=== PATIENT | male | born 1950 | race Caucasian/White ===

== ENCOUNTER → 2016-07-03 | Outpatient (CLI) | payer MEDICARE, OTHER ==
[~2016-07-03] MED LIST: /WARF5TA; ASMANEX; LOVENOX; PRESTIQ; SYNT112T; SYNT125T; THERGRAN
[2016-07-04 14:13] LABS: PSA % FREE 15.4 % (.); PSA FREE 0.71 ng/mL; PSA TOTAL 4.6 ng/mL (0.0-4.0)
== END | disposition home or self-care (01) ==
LOC: M LAB 07:22
PROVIDERS: ATTEND Nurse Practitioner Family
DX: R97.20 Elevated prostate specific antigen [PSA] (principal)

== ENCOUNTER → 2016-07-14 | Outpatient (CLI) | payer MEDICARE, OTHER ==
[~2016-07-14] MED LIST changes: +ASMA220A IN; +CALC-136 PO; +CALCCHW19 PO; +COEN100C PO; +FISH100049 PO; +GARL500C8 PO; +INOS500T PO; +LEVO125T3 PO; +LOVE0.01 SC; +MULT1TAB18 PO; +PRIS50TA PO; +VITA10006 PO; +VITA100066 PO; +VITAD1000T PO; +VITATAB11 PO; +WARF-23 PO
--- NOTE | 2016-07-14 10:42 | REP ---
Prostate sonography: History: Elevated PSA level. Sonographic findings: Trans rectal prostate sonography demonstrates unremarkable seminal vesicles. Prostate gland is heterogeneously enlarged with calcifications and cystic changes noted. Glandular dimensions are measured at 4.0 x 3.0 x 5.1 cm with a calculated glandular volume of 32.1 ml. There to nodules on the left measuring 0.7 and 0.9 cm in greatest diameter. Transrectal sonographic guidance provided to Dr. Rojo who performed trans rectal ultrasound guided needle biopsy procedure . Signed by Jah Clifford MD 07/14/2016 10:34 A
== END ==
LOC: M SMT PRO 08:26
PROVIDERS: ATTEND Urology
DX: C61 Malignant neoplasm of prostate (principal); R97.20 Elevated prostate specific antigen [PSA]
CPT/HCPCS: 55700; 76872; 76942; G0416

== ENCOUNTER → 2016-07-27 | Outpatient (REF) | payer MEDICARE, OTHER ==
[~2016-07-27] MED LIST changes: -ASMA220A IN; -CALC-136 PO; -CALCCHW19 PO; -COEN100C PO; -FISH100049 PO; -GARL500C8 PO; -INOS500T PO; -LEVO125T3 PO; -LOVE0.01 SC; -MULT1TAB18 PO; -PRIS50TA PO; -VITA10006 PO; -VITA100066 PO; -VITAD1000T PO; -VITATAB11 PO; -WARF-23 PO
== END | disposition home or self-care (01) ==
LOC: M SMT 16:53
PROVIDERS: ATTEND Urology
DX: R30.0 Dysuria (principal)

== ENCOUNTER → 2016-07-29 | Outpatient (CLI) | payer MEDICARE, OTHER ==
[~2016-07-29] MED LIST changes: +ASMA220A IN; +CALC-136 PO; +CALCCHW19 PO; +CIPRO; +COEN100C PO; +COLA100C PO; +DITR5TAB PO; +FISH100049 PO; +GARL500C8 PO; +INOS500T PO; +LEVO125T3 PO; +LOVE0.01 SC; +MULT1TAB18 PO; +OXYC1TAB23 PO; +PRIS50TA PO; +TYLE325T5 PO; +VITA10006 PO; +VITA100066 PO; +VITAD1000T PO; +VITATAB11 PO; +WARF-23 PO
[2016-07-29 15:54] LABS: RED CELL DISTRIBUTION WIDTH 13.1 % (11.5-14.5); WHITE BLOOD COUNT 5.6 K/mm3 (4.0-10.0)
[2016-07-29 15:56] LABS: INR 2.6
[2016-07-29 16:03] LABS: MEAN CORPUSCULAR HEMOGLOBIN 33.3 pg (27.0-33.0); MEAN CORPUSCULAR HGB CONC 34.9 g/dl (32.0-36.5); MEAN CORPUSCULAR VOLUME 95.3 fl (80.0-96.0)
[2016-07-29 16:16] LABS: ANION GAP 5 MEQ/L (8-16); BLOOD UREA NITROGEN 11 MG/DL (7-18); CALCIUM LEVEL 8.8 MG/DL (8.8-10.2); CARBON DIOXIDE LEVEL 33 MEQ/L (21-32); CHLORIDE LEVEL 105 MEQ/L (98-107); GLOMERULAR FILTRATION RATE > 60.0 (>49); GLUCOSE, FASTING 80 MG/DL (80-110); POTASSIUM SERUM 4.3 MEQ/L (3.5-5.1); SODIUM LEVEL 143 MEQ/L (136-145)
--- NOTE | 2016-07-29 16:34 | REP ---
Chest x-ray: Two views. History: Prostate malignancy. Comparison study April 16, 2015. Findings: The lungs are well inflated and remain clear. The pleural angles are sharp. Heart size is normal. Pulmonary vasculature is not increased. There are some mild degenerative changes in the thoracic spine. There are surgical clips on either side of the trachea in the soft tissues of the neck consistent with previous thyroidectomy. There is an old healed clavicle fracture on the right. No other significant bony abnormality. Impression: No active disease. Signed by Jah Clifford MD 07/29/2016 04:37 P
--- NOTE | 2016-07-29 16:49 | ECGEPIP ---
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
== END ==
LOC: M LAB 15:15
PROVIDERS: ATTEND Urology
DX: Z01.818 Encounter for other preprocedural examination (principal); C61 Malignant neoplasm of prostate; Z79.01 Long term (current) use of anticoagulants
CPT/HCPCS: 36415; 71020; 80048; 85027; 85610; 85730; 93005; G0463

== ENCOUNTER 2016-08-07 05:30 | Inpatient (IN) | payer MEDICARE, OTHER ==
--- NOTE | 2016-07-31 14:00 | CR ---
DATE OF CONSULTATION: 07/31/2016 REQUESTING PHYSICIAN: Dr. Rojo. This is a 65-year-old white male who is scheduled for robotic prostatectomy and sampling of lymph nodes. Recently diagnosed with prostate cancer. Perioperative concerns are history of recurrent deep venous thrombosis (DVT). He does have underlying medullary carcinoma of the thyroid which is followed at [facility]. 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 He does have mild obstructive sleep apnea (DALLAS) an DALLAS precautions. Regarding his chronic anticoagulation, his Coumadin has been discontinued yesterday. On Wednesday, he will begin Lovenox 120 mg daily through Wednesday. He will not take any on Wednesday. He should start his Lovenox up again postoperatively when it is felt to be safe from a urologic standpoint and he should continue at that dose until he is fully anticoagulated with his warfarin. His warfarin should also be restarted postoperatively. He has no history of known coronary disease. He has no cardiopulmonary symptoms. He has no history of stable asthma. He does have DALLAS mild. He does not use his CPAP. PAST MEDICAL HISTORY: MEN (it is with one without pheochromocytoma or hyperparathyroidism). Medullary carcinoma of the thyroid. He has had total thyroidectomy. He has surgical hypothyroidism, maintains TSH in a mildly suppressed zone. He has celiac disease. Recurrent DVTs. Pulmonary embolus. Anxiety. Asthma which is stable. He has had orthopedic surgery on a toe, rhinoseptoplasty, laser disc surgery, lumbar area by Dr. Lucas. MEDICATIONS: - amitriptyline 25 mg at bedtime - Asmanex inhaler for asthma maintenance which is well-controlled. - He takes fish oil, garlic oil and vitamin E which are on hold. - Synthroid 125 mcg a day. - He will be on Lovenox as above. His Coumadin has been discontinued. - Pristiq 50 mg a day. - tramadol as needed - Veramyst nasal spray Family history is negative for medullary carcinoma, negative for cancer. ALLERGIES: CELEBREX, DOXYCYCLINE, KEFLEX and PENICILLIN. I am not sure of the reaction. Cardiopulmonary review of systems is currently negative. He does have a history of asthma but that is well controlled on his inhaler and that should be continued perioperatively. PHYSICAL EXAMINATION: Blood pressure is 136/74, pulse is 60 and regular. General appearance: Healthy-appearing 65-year-old. HEENT: Is unremarkable. He has a fair oral airway. No carotid bruits. Thyroid has been surgically removed. Heart: Was regular. No murmurs. Chest is clear. No wheezes. Abdomen: Unremarkable. Extremities: No edema. Neuro: Intact. DATABASE: He had CBC, BMP, they were unremarkable. EKG is stable compared to prior was sinus robinson and nonspecific ST changes. INR was 2.6. IMPRESSION/PLAN: 1. Recurrent deep venous thrombosis (DVT), anticoagulation issues as above.AND ADDENDUM AT BOTTOM 2. Medullary carcinoma of the thyroid. 3. MEN syndrome. He has the syndrome not associated with pheochromocytoma or hyperparathyroidism. 4. Surgical hypothyroidism. Resume thyroid postoperatively. Continue Synthroid perioperatively. 5. Asthma. Resume Asmanex inhaler. 6. Generalized anxiety. Continue Pristiq, 7. Celiac disease, gluten-free diet. 8. Obstructive sleep apnea (DALLAS) mild, DALLAS precautions. He is optimized. The biggest caveats of concern is anticoagulation which is discussed above and obstructive sleep apnea issues as above and asthma issues as above, which is stable. 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
[~2016-08-07] VITALS: Ht 185.4 cm; Wt 92.0 kg
[~2016-08-07 05:30] MED LIST changes: -CIPRO; -COLA100C PO; -DITR5TAB PO; -OXYC1TAB23 PO; -TYLE325T5 PO
[2016-08-07] MEDS ORDERED: HEPARIN SOD (PORCINE) 5000 UNITS/ML VIAL SQ ONE (06:45)
[2016-08-07] MEDS ORDERED: GENTAMICIN 100 MG in APPROPRIATE DILUENT 1 EA IV ONE (06:45)
[2016-08-07] MEDS ORDERED: VANCOMYCIN HCL 1,000 MG, VIAL MATE ADAPTER 1 EACH in D5W 250 ML IV ONE (06:45)
[2016-08-07] MEDS ORDERED: BUPIVACAINE HCL 0.25% 30 ML VIAL As Ordered ONE (06:55)
[2016-08-07 06:56] LABS: INR 1.02
[2016-08-07] MEDS ORDERED: METHYLENE BLUE 1% 10 ML VIAL (Q9968) As Ordered ONE (06:56)
[2016-08-07] MEDS ORDERED: LIDOCAINE 1% SDV INJ 30 ML VIAL As Ordered ONE (06:56)
[2016-08-07] MEDS ORDERED: ONDANSETRON 4MG/2ML VIAL (J2405) IV PRN ×2 (07:45→13:15)
[2016-08-07] MEDS ORDERED: ACETAMINOPHEN TAB 650MG DOSE (2X325MG) PO PRN (07:45)
[2016-08-07] MEDS ORDERED: ePHEDrine SULFATE 25 MG/5 ML(5MG/ML) SYRINGE As Ordered ONE (08:19)
[2016-08-07] MEDS ORDERED: DESFLURANE 240 ML INHALANT As Ordered ONE (08:19)
[2016-08-07] MEDS ORDERED: fentaNYL 250 MCG/5 ML INJECTION (J3010) As Ordered ONE (08:19)
[2016-08-07] MEDS ORDERED: GLYCOPYRROLATE INJ 0.2 MG/ML 2 ML VIAL As Ordered ONE ×2 (08:19→10:32)
[2016-08-07] MEDS ORDERED: ROCURONIUM BROMIDE 50 MG/5 ML VIAL As Ordered ONE (08:19)
[2016-08-07] MEDS ORDERED: MIDAZOLAM INJ 2 MG/2 ML VIAL (J2250) As Ordered ONE (08:19)
[2016-08-07] MEDS ORDERED: LIDOCAINE 2% INJ 100 MG/5 ML SDV (FOR ANES.) As Ordered ONE (08:19)
[2016-08-07] MEDS ORDERED: PROPOFOL 200 MG/20 ML VIAL As Ordered ONE (08:19)
[2016-08-07] MEDS ORDERED: dexameTHASONE 4 MG/ML 1ML VIAL (J1100) As Ordered ONE (08:46)
[2016-08-07] MEDS ORDERED: LIDOCAINE 1% SDV INJ 30 ML VIAL XX ONE (09:07)
[2016-08-07] MEDS ORDERED: BUPIVACAINE HCL 0.25% 30 ML VIAL XX ONE (09:07)
[2016-08-07] MEDS ORDERED: HYDROmorphone HCL 2 MG/ML 1ML VIAL (J1170) As Ordered ONE (09:19)
[2016-08-07] MEDS ORDERED: ONDANSETRON 4MG/2ML VIAL (J2405) As Ordered ONE (10:32)
[2016-08-07] MEDS ORDERED: NEOSTIGMINE 1MG/ML 5 ML SYRINGE (J2710) As Ordered ONE (10:32)
[2016-08-07] MEDS: fentaNYL 100 MCG/2 ML INJECTION (J3010) IV PRN ×4 (13:10→13:53)
[2016-08-07] MEDS ORDERED: fentaNYL 100 MCG/2 ML INJECTION (J3010) As Ordered ONE (13:10)
[2016-08-07] MEDS ORDERED: LR 1,000 ML IV SCH (13:15)
[2016-08-07] MEDS ORDERED: PERCOCET 5MG/325MG TAB PO PRN (13:15)
[2016-08-07] MEDS ORDERED: HYDROmorphone HCL 1 MG/ML SYRINGE (J1170) IV PRN (13:15)
[2016-08-07 13:16] LABS: MEAN CORPUSCULAR HEMOGLOBIN 34.2 pg (27.0-33.0); MEAN CORPUSCULAR HGB CONC 35.5 g/dl (32.0-36.5); MEAN CORPUSCULAR VOLUME 96.3 fl (80.0-96.0); RED CELL DISTRIBUTION WIDTH 13.2 % (11.5-14.5); WHITE BLOOD COUNT 9.7 K/mm3 (4.0-10.0)
--- NOTE | 2016-08-07 13:25 | ROOPDOC ---
[facility] Report Of Operation Report of Operation DATE OF PROCEDURE: 08/07/2016 PREPROCEDURE DIAGNOSIS: Prostate cancer. POSTPROCEDURE DIAGNOSIS: Prostate cancer. PROCEDURE: Robotic-assisted laparoscopic radical prostatectomy with bilateral pelvic lymph node dissection. SURGEON: Joshua Kaufman MD ELECTRIC FRYING PAN REPAIRER: Mary Porras NP ANESTHESIA: General. OPERATIVE INDICATIONS: This is a 65-year-old male who was diagnosed with clinical stage T1c Jabari 3+4 prostate cancer. After a discussion of the different options for treatment, he elected to undergo the above listed procedure. DESCRIPTION OF PROCEDURE: The patient was brought to the operating room where general anesthesia was induced. Prophylactic antibiotics were infused. He was then placed in the dorsal lithotomy position, prepped and draped in the usual sterile fashion. Next, a Sage catheter was inserted into the bladder, and the balloon was filled with 10 mL of sterile water. We then made a midline incision above the umbilicus for 12 mm port. A Veress needle was utilized to achieve pneumoperitoneum. Next, a 12 mm port was inserted through the incision and subsequently the camera was inserted. There were no injuries from the Veress needle or initial trocar placement. The remaining ports were placed in the usual fashion under direct vision in a W configuration. There were three 8 mm robotic ports, as well as another 12 mm high school assistant principal port. Once all the ports were placed, the robot was docked. After the robot was docked, we then proceeded to release any adhesions to the sigmoid colon and the abdominal wall. Once that was done, the bladder was dropped and the fat overlying the prostate was cleared using electrocautery. The superficial dorsal vein was controlled with electrocautery. The endopelvic fascia was opened on both sides and the dorsal venous complex was cleared. Next, a #0 Vicryl [id number] stitch was placed around the dorsal venous complex. Once that was done, the bladder was opened. We then began dissecting the bladder neck away from the prostate. I continued to dissect the bladder away from the prostate and then the prostate was lifted up. Both vasa differentia were identified in the midline. They were both carefully dissected and then ligated with Weck clips and then transected. Both seminal vessels were then also dissected until the entire seminal vesicle on each side was lifted up. At this point, bilateral prostatic pedicles were carefully ligated using a Harmonic scalpel. Of note, I did not perform a nerve sparing procedure for this patient as he indicated preop that preserving erections was not a priority for him. Bilateral pedicles were carried towards the apex. After taking care of the pedicles and mobilizing the rectum off the prostate below, the prostate was only connected by the urethra. At this point, the dorsal vein was transected with electrocautery. The urethra was then opened and the catheter was withdrawn and the posterior urethra was transected, thus freeing the prostate. At this point, we checked for hemostasis and it did appear very good. Next, we performed bilateral pelvic lymph node dissection. This was done in a standard fashion. The limits of dissection were the iliac vein proximally, the obturator nerve distally, and the pelvic sidewall laterally, and the bladder medially. All lymphatic tissues within these limits was removed. I performed the same procedure on both the right and left sides. Hemostasis was then obtained with a combination of bipolar electrocautery and Weck clips. The lymphatic packets were then placed in separate Endo Catch bags for future retrieval. Once hemostasis was confirmed, I then moved on to the vesicourethral anastomosis. This was performed with a Quill stitch in a running fashion. Once this was done, the final #20-Japanese Sage catheter was placed. Once the final Sage was placed, the balloon was filled with 15 mL of sterile water. Upon completion of the vesicourethral anastomosis, it was tested by filling the bladder with 120 mL of sterile water. The vesicourethral anastomosis appeared to be watertight. At this point, the prostate and seminal vesicles were placed in an Endo Catch bag for future retrieval. The robot was then undocked. A Kaylyn fascial closure device was utilized to place a #0 Vicryl suture through the fascia of the 12 mm [employer] school assistant principal port. At this point, a Lorenzo- Fuller drain was brought in through the left robotic port skin site and the drain was positioned anterior to the bladder. The drain was secured to the skin with #3-0 Ethilon suture. Next, all the remaining ports were removed and there did not appear to be any bleeding from any of the port sites. The prostate, as well as the lymph node packets were then extracted from the 12 mm camera port site after the skin and fascia were extended. The fascia in this area was then closed with a running #0 Vicryl stitch. The previously placed #0 Vicryl free ties through the [employer] assistant principal port were then tied down and all incisions were irrigated. Lastly, all of the incisions were closed with running subcuticular #4-0 Monocryl sutures. Local anesthesia was applied. Dermabond was then applied to the incisions. This marked the conclusion of the procedure. The patient was then taken out of the dorsal lithotomy position, awakened from anesthesia and transported to the recovery room in stable condition. ESTIMATED BLOOD LOSS: 120 mL. COMPLICATIONS: None. SPECIMENS: Prostate, right pelvic lymph nodes, left pelvic lymph nodes. PLAN: The patient will be admitted to the hospital postoperatively, and he will likely be discharged home within the next 1-2 days. His catheter will be removed in the next 7-10 days. JOSHUA KAUFMAN MD Aug 07, 2016 13:25
[2016-08-07 13:34] LABS: ANION GAP 7 MEQ/L (8-16); BLOOD UREA NITROGEN 12 MG/DL (7-18); CALCIUM LEVEL 7.7 MG/DL (8.8-10.2); CARBON DIOXIDE LEVEL 27 MEQ/L (21-32); CHLORIDE LEVEL 107 MEQ/L (98-107); CREATININE FOR GFR 1.03 MG/DL (0.70-1.30); GLOMERULAR FILTRATION RATE > 60.0 (>49); GLUCOSE, FASTING 169 MG/DL (80-110); POTASSIUM SERUM 3.9 MEQ/L (3.5-5.1); SODIUM LEVEL 141 MEQ/L (136-145)
[2016-08-07 15:15] VITALS: BP 148/76
[2016-08-07 15:45] VITALS: BP 144/75
[2016-08-07] MEDS: NS 1,000 ML IV SCH ×2 (15:55→15:56)
[2016-08-07] MEDS ORDERED: ENOXAPARIN 40 MG/0.4 ML SYRINGE (J1650) SC ONE (16:00)
[2016-08-07] MEDS: GENTAMICIN 80 MG in APPROPRIATE DILUENT 1 EA IV SCH (16:19)
[2016-08-07 16:45] VITALS: BP 127/74
[2016-08-07 17:45] VITALS: BP 120/69
[2016-08-07] MEDS: DESVENLAFAXINE ER 50 MG TABLET (PRISTIQ) PO SCH (18:13)
[2016-08-07 18:45] VITALS: BP 123/68
[2016-08-07] MEDS ORDERED: VANCOMYCIN HCL 1,000 MG, VIAL MATE ADAPTER 1 EACH in D5W/0.2% SODIUM CHLORIDE 250 ML IV ONE (20:00)
[2016-08-07] MEDS: PERCOCET 5MG/325MG TAB PO PRN (21:21)
[2016-08-07] MEDS: DOCUSATE SODIUM 100 MG CAP PO SCH (21:21)
[2016-08-07] MEDS: MORPHINE 2 MG/ML 1ML SYRINGE IV PRN (21:22)
[2016-08-07] MEDS ORDERED: oxyBUTYnin 5 MG TAB PO PRN (21:45)
[2016-08-07 22:00] VITALS: BP 136/74
[2016-08-08] MEDS: MORPHINE 2 MG/ML 1ML SYRINGE IV PRN (00:47)
[2016-08-08] MEDS: NS 1,000 ML IV SCH ×2 (00:48→07:32)
[2016-08-08] MEDS: GENTAMICIN 80 MG in APPROPRIATE DILUENT 1 EA IV SCH (00:48)
[2016-08-08] MEDS: PERCOCET 5MG/325MG TAB PO PRN ×3 (01:24→10:45)
[2016-08-08 02:00] VITALS: BP 127/69
[2016-08-08 06:00] VITALS: BP 123/77
[2016-08-08] MEDS ORDERED: LEVOTHYROXINE 0.125 MG TAB (125 MCG) PO SCH (06:00)
[2016-08-08 06:44] LABS: MEAN CORPUSCULAR HEMOGLOBIN 34.7 pg (27.0-33.0); MEAN CORPUSCULAR HGB CONC 35.6 g/dl (32.0-36.5); MEAN CORPUSCULAR VOLUME 97.4 fl (80.0-96.0); RED CELL DISTRIBUTION WIDTH 13.6 % (11.5-14.5); WHITE BLOOD COUNT 8.1 K/mm3 (4.0-10.0)
[2016-08-08 07:02] LABS: ANION GAP 8 MEQ/L (8-16); BLOOD UREA NITROGEN 10 MG/DL (7-18); CARBON DIOXIDE LEVEL 25 MEQ/L (21-32); CHLORIDE LEVEL 109 MEQ/L (98-107); CREATININE FOR GFR 1.03 MG/DL (0.70-1.30); GLOMERULAR FILTRATION RATE > 60.0 (>49); GLUCOSE, FASTING 108 MG/DL (80-110); POTASSIUM SERUM 4.3 MEQ/L (3.5-5.1); SODIUM LEVEL 142 MEQ/L (136-145)
[2016-08-08] MEDS ORDERED: ENOXAPARIN 40 MG/0.4 ML SYRINGE (J1650) SC SCH (09:00)
[2016-08-08] MEDS: DOCUSATE SODIUM 100 MG CAP PO SCH (09:10)
[2016-08-08] MEDS: DESVENLAFAXINE ER 50 MG TABLET (PRISTIQ) PO SCH (09:10)
[2016-08-08] MEDS ORDERED: PERCOCET 5MG/325MG TAB PO PRN (09:45)
--- NOTE | 2016-08-08 09:54 | IPNPDOC ---
Assessment/Plan Date Seen The patient was seen on 08/08/16. Patient Summary This is a 65 y/o M POD 1 s/p RALP w/ BPLND. Doing well. Labs w/i normal limits. UOP is excellent. Drain output is minimal. Plan/VTE VTE Prophylaxis Ordered?: Yes VTE Exclusion Mechanical Proph: N/A:VTE Prophy Ordered VTE Exclusion Pharmacological: N/A:VTE Prophy Ordered Plan/Urinary Catheter Reason for insertion/continuin: Other-document below (catheter needs to stay in for 7-10 days to allow healing of his vesicourethral anastomosis) Plan - d/c IVF - transition to PO pain medications w/ morphine for breakthrough - oxybutynin prn bladder spasms - SCDs, lovenox for DVT prophylaxis - incentive spirometry - ambulate as tolerated - plan for discharge home today w/ catheter in place if patient has no issues ambulating - d/c ALONSO drain prior to discharge Subjective Review oF Systems Chief Complaint The patient is a 65-year-old male admitted with a reason for visit of Prostate Ca. Events since Last Encounter No acute events o/n. Good pain control this morning. Had mild nausea, which has resolved. Has not ambulated yet. No flatus yet. No f/c/ns. Objective Physical Examination General Exam: : Alert: Cooperative: No Acute Distress ENT EXAM: : Atraumatic ABDOMEN EXAM: : Other (nondistended; incisions clean/dry/intact; ALONSO w/ serosanguinous output): SoftNo: Tenderness Skin Exam: : Nl turgor and temperature Psych Exam: : Mental status NL: Mood NL Other physical findings catheter in place, draining clear urine Vital Signs/I&O Vital Signs Date Time Temp Pulse Resp B/P Pulse Ox O2 Delivery O2 Flow Rate FiO2 08/08/16 06:25 18 08/08/16 06:00 98.6 64 123/77 94 Nasal Cannula 2.0 I&O- Last 24 Hours up to 6 AM 08/08/16 06:00 Intake Total 1945 ml Output Total 2555 ml Balance -610 ml Laboratory Data Labs 24H Laboratory Tests 2 08/07/16 12:59: Anion Gap 7L, Blood Urea Nitrogen 12, Creatinine 1.03, Sodium Level 141, Potassium Level 3.9, Chloride Level 107, Carbon Dioxide Level 27, Calcium Level 7.7L, Glomerular Filtration Rate > 60.0 08/08/16 06:19: Anion Gap 8, Blood Urea Nitrogen 10, Creatinine 1.03, Sodium Level 142, Potassium Level 4.3, Chloride Level 109H, Carbon Dioxide Level 25, Calcium Level 8.0L, Glomerular Filtration Rate > 60.0 CBC/BMP Laboratory Tests 08/07/16 12:59 Calcium Level 7.7 L, Red Blood Count 4.23 L, Mean Corpuscular Volume 96.3 H, Mean Corpuscular Hemoglobin 34.2 H, Mean Corpuscular Hemoglobin Concent 35.5, Red Cell Distribution Width 13.2 08/08/16 06:19 Calcium Level 8.0 L, Red Blood Count 3.76 L, Mean Corpuscular Volume 97.4 H, Mean Corpuscular Hemoglobin 34.7 H, Mean Corpuscular Hemoglobin Concent 35.6, Red Cell Distribution Width 13.6 JOSHUA KAUFMAN MD Aug 08, 2016 09:54
[2016-08-08 10:00] VITALS: BP 124/76
[2016-08-08] MEDS ORDERED: MORPHINE 2 MG/ML 1ML SYRINGE IV PRN (10:00)
[2016-08-08] MEDS ORDERED: COLA100C PO (13:47)
[2016-08-08] MEDS ORDERED: OXYC1TAB23 PO (13:47)
[2016-08-08] MEDS ORDERED: DITR5TAB PO (13:47)
[2016-08-08] MEDS ORDERED: TYLE325T5 PO (13:47)
[2016-08-08] MEDS ORDERED: CIPRO (13:48)
--- NOTE | 2016-08-10 12:38 | DSES ---
DATE OF ADMISSION: 08/07/2016 DATE OF DISCHARGE: 08/08/2016 ADMITTING DIAGNOSIS: Prostate cancer. DISCHARGE DIAGNOSIS: Prostate cancer. ADMITTING PHYSICIAN: Josef Rojo MD DISCHARGING PHYSICIAN: Josef Rojo MD PROCEDURE PERFORMED: Robotic-assisted laparoscopic radical prostatectomy with bilateral pelvic lymph node dissection on 08/07/2016. HISTORY OF PRESENT ILLNESS: This is a 65-year-old male with prostate cancer who presented to the hospital for the above listed procedure on 08/07/2016. He was admitted to the hospital postoperatively. HOSPITALIZATION COURSE: The patient was admitted to the hospital after undergoing the above-listed procedure. His postoperative course was uncomplicated. By postoperative day #1, he was tolerating a regular diet and he ambulated well. His pain was well controlled with oral pain medications. His blood work was within normal limits. His catheter is also doing well with clear urine. He was, therefore, deemed ready for discharge on postoperative day #1. His Lorenzo-Fuller drain was removed prior to discharge. He was discharged home with his catheter in place with a plan to followup in the clinic in about 10 days for catheter removal and to discuss his pathology results.
== END 2016-08-08 15:14 | disposition home or self-care (01) | DRG 708 ==
LOC: M OR 05:30 → M MS5PR 15:11
PROVIDERS: ADMIT Urology; ATTEND Urology
PROC: 07BC4ZX Excision of Pelvis Lymphatic, Percutaneous Endoscopic Approach, Diagnostic (ICD-10-PCS; 2016-08-07)
PROC: 8E0W4CZ Robotic Assisted Procedure of Trunk Region, Percutaneous Endoscopic Approach (ICD-10-PCS; 2016-08-07)
PROC: 0VT04ZZ Resection of Prostate, Percutaneous Endoscopic Approach (ICD-10-PCS; principal; 2016-08-07 07:30)
DX: C61 Malignant neoplasm of prostate (principal); G47.33 Obstructive sleep apnea (adult) (pediatric); E89.0 Postprocedural hypothyroidism; E31.20 Multiple endocrine neoplasia [MEN] syndrome, unspecified; K90.0 Celiac disease; F41.1 Generalized anxiety disorder; J45.909 Unspecified asthma, uncomplicated; Z86.711 Personal history of pulmonary embolism; Z79.01 Long term (current) use of anticoagulants; Z85.850 Personal history of malignant neoplasm of thyroid; Z86.718 Personal history of other venous thrombosis and embolism; Z79.891 Long term (current) use of opiate analgesic; Z79.899 Other long term (current) drug therapy

== ENCOUNTER → 2016-09-09 | Outpatient (CLI) | payer MEDICARE, OTHER ==
[~2016-09-09] MED LIST changes: +CIPRO; +COLA100C PO; +DITR5TAB PO; +OXYC1TAB23 PO; +TYLE325T5 PO
== END ==
LOC: M LAB 07:22
PROVIDERS: ATTEND Urology
DX: C61 Malignant neoplasm of prostate (principal)

== ENCOUNTER → 2016-10-21 | Outpatient (CLI) | payer MEDICARE, OTHER ==
[~2016-10-21] MED LIST changes: -COLA100C PO; +COLA100C3 PO
[2016-10-21 09:17] LABS: THYROXINE (T4) 8.5 UG/DL (4.5-12.0)
== END ==
LOC: M LAB 08:02
PROVIDERS: ATTEND Internal Medicine Endocrinology, Diabetes & Metabolism
DX: C73 Malignant neoplasm of thyroid gland (principal)

== ENCOUNTER → 2016-12-14 | Outpatient (CLI) | payer MEDICARE, OTHER | LOC: M LAB 06:50 | PROVIDERS: ATTEND Urology | DX: C61 Malignant neoplasm of prostate (principal) ==

== ENCOUNTER → 2017-04-01 | Outpatient (CLI) | payer MEDICARE, OTHER ==
[~2017-04-01] MED LIST changes: -COLA100C3 PO; +COLA100C5 PO; -LEVO125T3 PO; +LEVO125T4 PO
== END ==
LOC: M LAB 06:54
PROVIDERS: ATTEND Urology
DX: C61 Malignant neoplasm of prostate (principal)

== ENCOUNTER → 2017-04-30 | Outpatient (CLI) | payer MEDICARE, OTHER ==
[2017-04-30 08:25] LABS: FREE T4 0.95 NG/DL (0.76-1.46)
== END ==
LOC: M LAB 07:15
PROVIDERS: ATTEND Internal Medicine Endocrinology, Diabetes & Metabolism
DX: E03.9 Hypothyroidism, unspecified (principal); E31.22 Multiple endocrine neoplasia [MEN] type IIA

== ENCOUNTER → 2017-07-20 | Outpatient (CLI) | payer MEDICARE, OTHER ==
[2017-07-20 08:23] LABS: FREE T4 1.17 NG/DL (0.76-1.46); THYROID STIMULATING HORMONE 0.274 uIU/ML (0.358-3.740)
== END ==
LOC: M LAB 07:08
DX: E03.9 Hypothyroidism, unspecified (principal)
CPT/HCPCS: 84443

== ENCOUNTER → 2017-07-22 | Outpatient (CLI) | payer MEDICARE, OTHER ==
[2017-07-22 09:08] LABS: PROSTATIC SPECIFIC AG MONITOR < 0.01 NG/ML (< 4.0)
== END ==
LOC: M LAB 07:25
DX: C61 Malignant neoplasm of prostate (principal)
CPT/HCPCS: 84153

== ENCOUNTER → 2017-09-06 | Outpatient (CLI) | payer MEDICARE, OTHER | LOC: M RAD 12:09 | DX: R05 Cough (principal) | CPT/HCPCS: 71046 ==

== ENCOUNTER → 2017-09-07 | Outpatient (REF) | payer MEDICARE, OTHER | LOC: M LAB REF 10:00 | DX: R05 Cough (principal) | CPT/HCPCS: 87205 ==

== ENCOUNTER → 2017-09-14 | Outpatient (CLI) | payer MEDICARE, OTHER ==
[2017-09-14 08:18] LABS: FREE T4 0.95 NG/DL (0.76-1.46); THYROID STIMULATING HORMONE 0.537 uIU/ML (0.358-3.740); THYROXINE (T4) 8.7 UG/DL (4.5-12.0)
== END ==
LOC: M LAB 07:06
DX: E89.0 Postprocedural hypothyroidism (principal)
CPT/HCPCS: 84443

== ENCOUNTER → 2017-09-23 | Outpatient (REF) | payer MEDICARE, OTHER ==
[2017-09-23 12:09] LABS: D-DIMER QUANT < 270.0 ng/ml (<500)
== END ==
LOC: M LAB REF 11:44
DX: R06.02 Shortness of breath (principal); Z86.718 Personal history of other venous thrombosis and embolism; R04.2 Hemoptysis
CPT/HCPCS: 85379

== ENCOUNTER → 2017-12-14 | Outpatient (REF) | payer MEDICARE, OTHER ==
[2017-12-17 15:02] LABS: CALCITONIN 89.2 pg/mL (0.0-8.4)
== END ==
LOC: M LAB REF 11:46
DX: E31.20 Multiple endocrine neoplasia [MEN] syndrome, unspecified (principal)
CPT/HCPCS: 82308

== ENCOUNTER 2017-12-30 07:12 | Emergency (ER) | payer MEDICARE, OTHER ==
[2017-12-30] MEDS: CLINDAMYCIN 150 MG CAP PO ×2 (08:21)
== END 2017-12-30 08:22 | disposition home or self-care (01) ==
LOC: M ED 07:12
DX: L03.116 Cellulitis of left lower limb (principal); E03.9 Hypothyroidism, unspecified; E78.9 Disorder of lipoprotein metabolism, unspecified; M51.9 Unspecified thoracic, thoracolumbar and lumbosacral intervertebral disc disorder; I10 Essential (primary) hypertension; K90.0 Celiac disease; Z85.46 Personal history of malignant neoplasm of prostate; Z79.01 Long term (current) use of anticoagulants
CPT/HCPCS: 84443

== ENCOUNTER 2017-12-31 07:09 | Emergency (ER) | payer MEDICARE, OTHER ==
[2017-12-31 08:05] LABS: BASO # 0.1 10^3/uL (0.0-0.2); BASO % 0.7 % (0.0-1.0); EOS # 0.1 10^3/uL (0.0-0.50); HEMATOCRIT 42.2 % (42.0-52.0); HEMOGLOBIN 15.1 g/dl (13.5-17.5); IMMATURE GRANULOCYTE % 0.4 % (0-3.0); LYMPH # 0.9 10^3/uL (1.5-4.5); LYMPH % 11.8 % (24.0-44.0); MEAN CORPUSCULAR HGB CONC 35.8 g/dl (32.0-36.5); MONO # 1.2 10^3/uL (0.0-0.8); MONO % 16.1 % (0.0-5.0); NEUTROPHILS # 5.1 10^3/uL (1.8-7.7); PLATELET COUNT, AUTOMATED 122 10^3/uL (150-450); RED BLOOD COUNT 4.44 10^6/uL (4.30-6.10); RED CELL DISTRIBUTION WIDTH 13.2 % (11.5-14.5); WHITE BLOOD COUNT 7.3 10^3/uL (4.0-10.0)
[2017-12-31] MEDS: CLINDAMYCIN 900 MG in APPROPRIATE DILUENT 1 EA IV (08:18)
[2017-12-31 08:27] LABS: ANION GAP 6 MEQ/L (8-16); BLOOD UREA NITROGEN 12 MG/DL (7-18); C REACTIVE PROTEIN QUANTITATIV 7.01 MG/DL (0.00-0.30); CARBON DIOXIDE LEVEL 28 MEQ/L (21-32); CHLORIDE LEVEL 108 MEQ/L (98-107); CREATININE FOR GFR 0.94 MG/DL (0.70-1.30); GLOMERULAR FILTRATION RATE > 60.0 (>49); GLUCOSE, FASTING 130 MG/DL (70-100); POTASSIUM SERUM 4.2 MEQ/L (3.5-5.1); SODIUM LEVEL 142 MEQ/L (136-145)
[2017-12-31 08:28] LABS: INR 1.79; PROTHROMBIN TIME 21.1 SECONDS (12.1-14.4)
[2017-12-31 08:29] LABS: PARTIAL THROMBOPLASTIN TIME 38.2 SECONDS (25.4-37.6)
== END 2017-12-31 09:32 | disposition home or self-care (01) ==
LOC: M ED 07:09
DX: L03.116 Cellulitis of left lower limb (principal); E07.9 Disorder of thyroid, unspecified; E78.9 Disorder of lipoprotein metabolism, unspecified; F32.9 Major depressive disorder, single episode, unspecified; J45.909 Unspecified asthma, uncomplicated; K90.0 Celiac disease; Z85.46 Personal history of malignant neoplasm of prostate; Z79.899 Other long term (current) drug therapy; Z79.2 Long term (current) use of antibiotics; Z79.01 Long term (current) use of anticoagulants; Z88.8 Allergy status to other drugs, medicaments and biological substances; Z88.0 Allergy status to penicillin; Z91.018 Allergy to other foods; Z91.013 Allergy to seafood; Z91.040 Latex allergy status
CPT/HCPCS: 80048

== ENCOUNTER 2018-01-01 08:59 | Emergency (ER) | payer MEDICARE, OTHER | END 2018-01-01 10:11 | disposition home or self-care (01) | LOC: M ED 08:59 | DX: L03.116 Cellulitis of left lower limb (principal); L02.416 Cutaneous abscess of left lower limb; J45.909 Unspecified asthma, uncomplicated; K90.0 Celiac disease; E03.9 Hypothyroidism, unspecified; M48.00 Spinal stenosis, site unspecified; M51.9 Unspecified thoracic, thoracolumbar and lumbosacral intervertebral disc disorder; F42.9 Obsessive-compulsive disorder, unspecified; F41.9 Anxiety disorder, unspecified; F33.9 Major depressive disorder, recurrent, unspecified; Z79.899 Other long term (current) drug therapy; Z79.890 Hormone replacement therapy; Z79.01 Long term (current) use of anticoagulants; Z79.51 Long term (current) use of inhaled steroids; Z88.0 Allergy status to penicillin; Z88.8 Allergy status to other drugs, medicaments and biological substances; Z91.013 Allergy to seafood; Z91.018 Allergy to other foods; Z91.040 Latex allergy status; Z91.048 Other nonmedicinal substance allergy status | CPT/HCPCS: 99283 ==

== ENCOUNTER → 2018-01-25 | Outpatient (REF) | payer MEDICARE, OTHER ==
[2018-01-25 14:06] LABS: FREE T3 2.6 PG/ML (2.2-4.0)
== END ==
LOC: M LAB REF 13:17
DX: E03.9 Hypothyroidism, unspecified (principal)
CPT/HCPCS: 84481

== ENCOUNTER → 2018-02-03 | Outpatient (CLI) | payer MEDICARE, OTHER ==
[2018-02-03 08:31] LABS: PROSTATIC SPECIFIC AG MONITOR < 0.01 NG/ML (< 4.0)
== END ==
LOC: M LAB 07:06
DX: C61 Malignant neoplasm of prostate (principal)
CPT/HCPCS: 84153

== ENCOUNTER 2018-02-21 07:47 | Emergency (ER) | payer MEDICARE, OTHER ==
[2018-02-21 08:54] LABS: BASO # 0.1 10^3/uL (0.0-0.2); BASO % 1.3 % (0.0-1.0); EOS # 0.2 10^3/uL (0.0-0.50); EOS % 4.9 % (0.0-3.0); HEMATOCRIT 44.5 % (42.0-52.0); HEMOGLOBIN 15.7 g/dl (13.5-17.5); IMMATURE GRANULOCYTE % 0.6 % (0-3.0); LYMPH # 1.3 10^3/uL (1.5-4.5); LYMPH % 26.4 % (24.0-44.0); MEAN CORPUSCULAR HEMOGLOBIN 33.5 pg (27.0-33.0); MEAN CORPUSCULAR HGB CONC 35.3 g/dl (32.0-36.5); MEAN CORPUSCULAR VOLUME 95.1 fl (80.0-96.0); MONO # 0.7 10^3/uL (0.0-0.8); MONO % 14.8 % (0.0-5.0); NEUTROPHILS # 2.5 10^3/uL (1.8-7.7); PLATELET COUNT, AUTOMATED 146 10^3/uL (150-450); RED BLOOD COUNT 4.68 10^6/uL (4.30-6.10); RED CELL DISTRIBUTION WIDTH 13.4 % (11.5-14.5); WHITE BLOOD COUNT 4.7 10^3/uL (4.0-10.0)
[2018-02-21 08:58] LABS: KETONE, URINE AUTO RFX TRACE mg/dL (NEGATIVE); LEUKOCYTE ESTERASE UR AUTO RFX NEGATIVE (NEGATIVE); MUCUS, URINE RFX SMALL (NEGATIVE); NITRITE, URINE AUTO RFX NEGATIVE (NEGATIVE); RBC, URINE AUTO RFX 1 /HPF (0-3); SPECIFIC GRAVITY UR AUTO RFX 1.026 (1.002-1.035); SQUAM EPITHELIAL CELL UR AURFX 0 /HPF (0-6); WBC, URINE AUTO RFX 0 /HPF (0-3)
[2018-02-21 09:20] LABS: ANION GAP 5 MEQ/L (8-16); BLOOD UREA NITROGEN 13 MG/DL (7-18); CALCIUM LEVEL 8.7 MG/DL (8.8-10.2); CARBON DIOXIDE LEVEL 29 MEQ/L (21-32); CHLORIDE LEVEL 109 MEQ/L (98-107); CREATININE FOR GFR 0.84 MG/DL (0.70-1.30); GLOMERULAR FILTRATION RATE > 60.0 (>49); GLUCOSE, FASTING 107 MG/DL (70-100); POTASSIUM SERUM 4.1 MEQ/L (3.5-5.1); SODIUM LEVEL 143 MEQ/L (136-145)
[2018-02-21] MEDS: METHOCARBAMOL 1,000 MG/10 ML VIAL (J2800) IV (10:15)
== END 2018-02-21 10:46 | disposition home or self-care (01) ==
LOC: M ED 07:47
DX: R10.9 Unspecified abdominal pain (principal); S29.012A Strain of muscle and tendon of back wall of thorax, initial encounter; X58.XXXA Exposure to other specified factors, initial encounter; Y92.89 Other specified places as the place of occurrence of the external cause; Z87.440 Personal history of urinary (tract) infections; E78.5 Hyperlipidemia, unspecified; E30.9 Disorder of puberty, unspecified; Z85.46 Personal history of malignant neoplasm of prostate; Z86.711 Personal history of pulmonary embolism; M48.00 Spinal stenosis, site unspecified; M51.36 Other intervertebral disc degeneration, lumbar region; Z87.19 Personal history of other diseases of the digestive system; Z91.018 Allergy to other foods; Z88.8 Allergy status to other drugs, medicaments and biological substances; Z91.013 Allergy to seafood; Z88.0 Allergy status to penicillin; Z79.899 Other long term (current) drug therapy; Z79.51 Long term (current) use of inhaled steroids; Z79.01 Long term (current) use of anticoagulants
CPT/HCPCS: J2800

== ENCOUNTER → 2018-04-28 | Outpatient (CLI) | payer MEDICARE, OTHER | LOC: M LAB 06:55 | DX: E03.9 Hypothyroidism, unspecified (principal) | CPT/HCPCS: 84443 ==

== ENCOUNTER 2018-05-04 04:34 | Emergency (ER) | payer MEDICARE, OTHER ==
[2018-05-04 05:32] LABS: BASO # 0.1 10^3/uL (0.0-0.2); BASO % 1.4 % (0.0-1.0); EOS # 0.3 10^3/uL (0.0-0.50); EOS % 5.1 % (0.0-3.0); HEMATOCRIT 46.3 % (42.0-52.0); HEMOGLOBIN 16.3 g/dl (13.5-17.5); IMMATURE GRANULOCYTE % 0.2 % (0-3.0); LYMPH # 1.2 10^3/uL (1.5-4.5); LYMPH % 24.4 % (24.0-44.0); MEAN CORPUSCULAR HEMOGLOBIN 33.5 pg (27.0-33.0); MEAN CORPUSCULAR HGB CONC 35.2 g/dl (32.0-36.5); MEAN CORPUSCULAR VOLUME 95.1 fl (80.0-96.0); MONO # 0.7 10^3/uL (0.0-0.8); MONO % 12.8 % (0.0-5.0); NEUTROPHILS # 2.9 10^3/uL (1.8-7.7); NEUTROPHILS % 56.1 % (36.0-66.0); PLATELET COUNT, AUTOMATED 145 10^3/uL (150-450); RED BLOOD COUNT 4.87 10^6/uL (4.30-6.10); WHITE BLOOD COUNT 5.1 10^3/uL (4.0-10.0)
[2018-05-04 05:52] LABS: ANION GAP 5 MEQ/L (8-16); BLOOD UREA NITROGEN 14 MG/DL (7-18); CALCIUM LEVEL 8.6 MG/DL (8.8-10.2); CARBON DIOXIDE LEVEL 29 MEQ/L (21-32); CHLORIDE LEVEL 108 MEQ/L (98-107); CREATININE FOR GFR 0.92 MG/DL (0.70-1.30); GLOMERULAR FILTRATION RATE > 60.0 (>49); GLUCOSE, FASTING 120 MG/DL (70-100); POTASSIUM SERUM 4.7 MEQ/L (3.5-5.1); SODIUM LEVEL 142 MEQ/L (136-145)
== END 2018-05-04 06:55 | disposition home or self-care (01) ==
LOC: M ED 04:34
DX: J32.9 Chronic sinusitis, unspecified (principal); T50.B95A Adverse effect of other viral vaccines, initial encounter; K90.0 Celiac disease; G47.33 Obstructive sleep apnea (adult) (pediatric); J45.909 Unspecified asthma, uncomplicated; Z85.46 Personal history of malignant neoplasm of prostate; Z85.850 Personal history of malignant neoplasm of thyroid; Z91.018 Allergy to other foods; Z88.8 Allergy status to other drugs, medicaments and biological substances; Z91.040 Latex allergy status; Z88.0 Allergy status to penicillin; Z88.1 Allergy status to other antibiotic agents
CPT/HCPCS: 70450

== ENCOUNTER → 2018-05-06 | Outpatient (CLI) | payer MEDICARE, OTHER | LOC: M LAB 06:51 | DX: E31.22 Multiple endocrine neoplasia [MEN] type IIA (principal) | CPT/HCPCS: 83835 ==

== ENCOUNTER → 2018-05-07 | Outpatient (REF) | payer MEDICARE, OTHER ==
[2018-05-11 00:39] LABS: METANEPHRINE TOTAL URINE 38 ug/L (Undefined); METANEPHRINE URINE 61 ug/24 hr (45-290); NORMETANEPHRINE TOTAL URINE 151 ug/L (Undefined); NORMETANEPHRINE URINE 242 ug/24 hr (82-500)
== END ==
LOC: M LAB REF 10:11
DX: E31.22 Multiple endocrine neoplasia [MEN] type IIA (principal)
CPT/HCPCS: 83835

== ENCOUNTER 2018-07-09 07:15 | Emergency (ER) | payer MEDICARE, OTHER ==
[~2018-07-09] VITALS: Ht 182.9 cm; Wt 88.6 kg
[~2018-07-09 07:15] MED LIST changes: +CIPR500T3; +CLEO300C2 PO; +COUM1TAB17 PO; +FLON27.5 NARES; +LEVO750T13; +ROBA500T PO; +SYNT125T PO; +TRAM50TA2 PO; +XANA0.25 PO; +zyflamend PO
[2018-07-09] MEDS ORDERED: COUM1TAB17 PO (07:43)
[2018-07-09] MEDS ORDERED: COUM7.5T PO (07:43)
[2018-07-09] MEDS ORDERED: [UNRECOGNIZED DRUG - OTHER] PO (07:43)
[2018-07-09] MEDS ORDERED: zyflamend (07:43)
[2018-07-09] MEDS ORDERED: FLON27.5 NARES (07:43)
[2018-07-09] MEDS ORDERED: [UNRECOGNIZED DRUG - OTHER] PO (07:43)
[2018-07-09] MEDS ORDERED: MULTCAP PO (07:43)
--- NOTE | 2018-07-09 08:03 | REPVR ---
EXAM: CT Head Without Contrast EXAM DATE/TIME: 07/09/2018 7:36 AM CLINICAL HISTORY: 67 years old, male; Injury or trauma; Fall; Initial encounter; Concussion / head injury; Consciousness not specified TECHNIQUE: Axial computed tomography images of the head/brain without contrast. All CT scans at this facility use at least one of these dose optimization techniques: automated exposure control; mA and/or kV adjustment per patient size (includes targeted exams where dose is matched to clinical indication); or iterative reconstruction. COMPARISON: CT Head without contrast 05/04/2018 5:23 AM FINDINGS: Brain: Normal. No hemorrhage. No significant white matter disease. No edema. Ventricles: Age related cerebral atrophy and ventricular dilatation seen. Bones/joints: Normal. No acute fracture. Sinuses: Normal as visualized. No acute sinusitis. Mastoid air cells: Normal as visualized. No mastoid effusion. Soft tissues: Normal. IMPRESSION: No CT evidence of intracranial hemorrhage, mass effect or midline shift. Electronically signed by: Clarke Brody On 07/09/2018 08:03:36 AM
--- NOTE | 2018-07-09 08:07 | REPVR ---
EXAM: CT Cervical Spine Without Contrast EXAM DATE/TIME: 07/09/2018 7:36 AM CLINICAL HISTORY: 67 years old, male; Injury or trauma; Fall; Initial encounter; Concussion /head injury TECHNIQUE: Axial computed tomography images of the cervical spine without intravenous contrast. All CT scans at this facility use at least one of these dose optimization techniques: automated exposure control; mA and/or kV adjustment per patient size (includes targeted exams where dose is matched to clinical indication); or iterative reconstruction. Coronal and sagittal reformatted images were created and reviewed. COMPARISON: OT PET/CT Skull/mid thigh 08/13/2011 4:45 PM FINDINGS: Vertebrae: There are mild multilevel facet arthrosis. Small anterior disc osteophyte complex formation seen at C5-C6. No appreciable foraminal stenosis seen. Discs/Spinal canal/Neural foramina: See Vertebrae Finding. Soft tissues: Unremarkable. Thyroid: The patient is status post thyroidectomy. Lungs: There is a 5-6 mm nodule in the left lung apex. IMPRESSION: 1. No CT evidence of traumatic cervical spine injury. 2. Status post thyroidectomy. 3. 5-6 mm left lung apex nodule. Correlate with patient's clinical history. If indicated further evaluation of the lungs is needed, CT scan of the chest may be obtained Electronically signed by: Clarke Brody On 07/09/2018 08:07:38 AM
[2018-07-09 08:20] LABS: INR 2.14; PARTIAL THROMBOPLASTIN TIME 37.8 SECONDS (25.4-37.6); PROTHROMBIN TIME 24.3 SECONDS (12.1-14.4)
[2018-07-09 08:30] LABS: BASO # 0.1 10^3/uL (0.0-0.2); BASO % 1.1 % (0.0-1.0); EOS # 0.1 10^3/uL (0.0-0.50); EOS % 1.3 % (0.0-3.0); HEMATOCRIT 46.7 % (42.0-52.0); HEMOGLOBIN 17.1 g/dl (13.5-17.5); LYMPH # 1.2 10^3/uL (1.5-4.5); LYMPH % 21.3 % (24.0-44.0); MEAN CORPUSCULAR HEMOGLOBIN 33.8 pg (27.0-33.0); MEAN CORPUSCULAR VOLUME 92.3 fl (80.0-96.0); MONO # 0.7 10^3/uL (0.0-0.8); MONO % 12.2 % (0.0-5.0); NEUTROPHILS # 3.6 10^3/uL (1.8-7.7); NEUTROPHILS % 63.7 % (36.0-66.0); PLATELET COUNT, AUTOMATED 149 10^3/uL (150-450); RED BLOOD COUNT 5.06 10^6/uL (4.30-6.10); WHITE BLOOD COUNT 5.6 10^3/uL (4.0-10.0)
[2018-07-09] MEDS ORDERED: NS 1,000 ML IV SCH (08:30)
[2018-07-09 08:33] LABS: MEAN CORPUSCULAR HGB CONC 36.6 g/dl (32.0-36.5)
[2018-07-09 08:34] LABS: BLOOD UREA NITROGEN 11 MG/DL (7-18); CALCIUM LEVEL 8.5 MG/DL (8.8-10.2); CARBON DIOXIDE LEVEL 26 MEQ/L (21-32); CHLORIDE LEVEL 108 MEQ/L (98-107); CPK CREATINE PHOSPHOKINASE 165 U/L (39-308); GLOMERULAR FILTRATION RATE > 60.0 (>49); GLUCOSE, FASTING 125 MG/DL (70-100); MB/CK RELATIVE INDEX 1.94 (< OR =4); POTASSIUM SERUM 3.5 MEQ/L (3.5-5.1); SODIUM LEVEL 141 MEQ/L (136-145); TROPONIN I < 0.02 NG/ML (< 0.10)
[2018-07-09 08:39] LABS: ALBUMIN 3.7 GM/DL (3.2-5.2); BILIRUBIN,DIRECT 0.2 MG/DL (0.0-0.2); BILIRUBIN,TOTAL 1.2 MG/DL (0.2-1.0); FREE T4 1.16 NG/DL (0.76-1.46); THYROID STIMULATING HORMONE 1.21 uIU/ML (0.358-3.740); TOTAL PROTEIN 7.3 GM/DL (6.4-8.2)
[2018-07-09] MEDS ORDERED: ISOVUE-370 76% 100ML VIAL (Q9967) As Ordered ONE (08:46)
--- NOTE | 2018-07-09 09:48 | REP ---
AP PORTABLE CHEST: 07/09/2018. Clinical history: Chest pain. Comparison: 02/21/2018. Findings: Lungs are well inflated and without infiltrate, effusion, atelectasis or mass. No pneumothorax. The heart is not enlarged. There is no vascular redistribution or pulmonary edema. Aorta is mildly tortuous but normal for age. Airway is intact. No widening of the mediastinum. There is an old healed and remodeled fracture of the right mid clavicle. No acute bony finding. No free air under the diaphragm. Impression :1. No acute cardiopulmonary change. Electronically Signed by Issa Lunsford MD 07/09/2018 01:20 P
[2018-07-09 10:18] VITALS: BP 140/77
--- NOTE | 2018-07-09 10:49 | REP ---
CT CHEST WITH CONTRAST: 07/09/2018. Comparison: 09/23/2017, CT angiography. Technique: The patient received a bolus of 100 mL Isovue 370 scanning through the chest with coronal and sagittal reconstructions. Findings: The lung moore are well inflated and without infiltrate, effusion, atelectasis or mass. Previous 7 mm left lower lobe lung nodule in the is resolved and the right middle lobe nodule on previous study is unchanged. Minor apical pleuroparenchymal scarring. There is no pleural thickening or pneumothorax. No pneumomediastinum. Heart is not enlarged. Aorta is without aneurysm or dissection. The main right and left pulmonary arteries and the mediastinum are without filling defects. No mediastinal adenopathy. Tracheal airway and proximal bronchi unremarkable. No axillary, supraclavicular mass. Bone windows show the sternum, manubrium, clavicles, scapulae and humeral heads visible without acute fracture. There is an old healed and remodeled midshaft right clavicular fracture. Ribs are without fracture. I see no hiatal hernia. Upper abdomen will be discussed in the CT abdomen report. Impression: 1. No evidence of acute traumatic change in the lungs, mediastinum, bony chest or chest wall. There is no pneumothorax, pneumomediastinum, aortic dissection or aneurysm. Old healed and remodeled right clavicular fracture. No acute fracture. Electronically Signed by Issa Lunsford MD 07/09/2018 01:22 P
--- NOTE | 2018-07-09 10:57 | REP ---
CT ABDOMEN PELVIS WITH IV CONTRAST ONLY: 07/09/2018. Clinical history: Trauma. Technique: Bolus of 100 ml Isovue 370 given with axial images and both coronal and sagittal reconstructions provided. Findings: There is no hiatal hernia. Stomach collapsed. Liver and spleen show no focal lesion, subcapsular hematoma, adjacent ascites or mass. Gallbladder without calcified stone or mass. Adrenal glands normal. Pancreas unremarkable. Kidneys show no stone, mass, cyst, hydronephrosis or evidence of contusion. The aorta is without aneurysm or dissection. There is ectasia of the iliac arteries. No periaortic or other retroperitoneal lymphadenopathy. I see no ascites in the abdomen. Lung window review of all CT slices abdomen pelvis shows no perforation or free air. Small bowel loops are grossly unremarkable. The colon shows moderate scattered stool without signs of colitis, diverticulitis in the abdomen proper. Bone windows show marginal osteophytes at L2-3 through L4-5, smaller at L5-S1 and the L1-2 levels and above. There is no compression deformity or destruction. The disc space is narrowed at L4-5. There is no spondylolysis or spondylolisthesis. Central canal stenosis due to combined factors at L3-4 and L4-5. Some borderline stenosis at L5-S1. No ventral or inguinal hernia nor inguinal adenopathy. CT pelvis: Sacrum, SI joints, pelvis and hips without fracture, destructive lesion. Pubic rami and symphysis pubis intact. There are some degenerative changes of the SI joints and hips. Bladder is well filled without mass, wall thickening or stone. Pelvic phleboliths are seen. There is no renal, ureteral or bladder stone. Small amount of omental fat in the left inguinal canal without herniation. Impression: 1. No evidence of acute traumatic finding in the abdomen or pelvis. There is no ascites, solid organ contusion, acute fractures of the spine, posterior elements or pelvis. Nothing acute. Electronically Signed by Issa Lunsford MD 07/09/2018 01:22 P
--- NOTE | 2018-07-09 11:15 | REP ---
CT THORACIC SPINE WITHOUT CONTRAST: 07/09/2018. Technique: Axial images with coronal and sagittal reconstructions were provided. Clinical history: Trauma. Findings: The image volume extends from C6-7 to the midbody of L1 shows marginal osteophytes at T4-5 through T10-11. Smaller spurs at T11-T12. No acute compression deformity or destructive lesion. There are vertebral hemangiomas T4 and T5 vertebral bodies as benign findings. Posterior elements show spinous processes, facets, transverse processes and posterior ribs without visible fracture. There is no central canal stenosis. Impression: 1. Degenerative disc changes with marginal osteophytes throughout much of the spine but no compression deformity of destructive lesion. Posterior elements and posterior rib articulations intact. No acute traumatic finding. Electronically Signed by Issa Lunsford MD 07/09/2018 01:22 P
--- NOTE | 2018-07-09 11:24 | REP ---
CT LUMBAR SPINE WITHOUT CONTRAST: 07/09/2018. Comparison: CT abdomen pelvis 06/19/2018, CT lumbar spine 10/11/2013. Clinical history: Trauma. Findings: Axial soft-tissue and bone windows with coronal and sagittal bone window reconstructions provided. Humeral body heights are maintained. There are old chronic changes right lateral aspect of L5 and anterior lateral endplates. There are marginal osteophytes with disc space narrowing at this level. There are also osteophytes anterolaterally at all levels above and to lesser extent L5-S1. Slight disc space narrowing at the L3-4. The other disc space heights are maintained. No acute compression deformity. There is central canal stenosis due to combined factors at L4-5 there is severe, moderately severe at L3-4, mild L2-3 and L5-S1. There is facet arthropathy at L5-S1, less at L4-5. No spondylolysis or spondylolisthesis. Sacral ala and foramina visible were intact. SI joints symmetric with some sclerosis iliac margins. Impression: 1. No compression deformity, spondylolysis or other acute bony finding in the spine. Degenerative disc changes greatest at the L4-5 with central canal stenosis at that level and to a lesser extent other levels as described. No acute abnormality of the spine or paraspinal tissues. Electronically Signed by Issa Lunsford MD 07/09/2018 01:39 P
--- NOTE | 2018-07-10 07:56 | ED PDOC ---
Post-Departure Follow-Up dr alexander faxed formal report of ct c spine for Kiera Cedeño MD Jul 10, 2018 07:56
--- NOTE | 2018-07-10 09:19 | ECGEPIP ---
Stationary ECG Study [facility] - ED Test Date: 2018-07-09 Pat Name: ALISON MOSCOSO Department: Room: - Gender: M Nurse Navigator: michael : 1950 Requested By: YULIET Jerome Order Number: [id number] Reading MD: Kiera Crane Measurements Intervals [place] Rate: 66 P: 64 MD: 174 QRS: 0 QRSD: 101 T: 93 QT: 390 QTc: 411 Interpretive Statements SINUS RHYTHM POSSIBLE LEFT ATRIAL ENLARGEMENT NONSPECIFIC T-WAVE ABNORMALITY INTERPRETATION BASED ON A DEFAULT AGE OF 40 YEARS cw 07/29/16 rate increased diffuse nonspecific st t wave changes Electronically Signed On 07-10-2018 9:19:05 EST by Kiera Crane
== END 2018-07-09 10:25 | disposition home or self-care (01) ==
LOC: M ED 07:15
DX: F41.1 Generalized anxiety disorder (principal); R29.6 Repeated falls; F32.9 Major depressive disorder, single episode, unspecified; Z85.46 Personal history of malignant neoplasm of prostate; Z86.718 Personal history of other venous thrombosis and embolism; Z86.711 Personal history of pulmonary embolism; G47.33 Obstructive sleep apnea (adult) (pediatric); M19.90 Unspecified osteoarthritis, unspecified site; E03.9 Hypothyroidism, unspecified; M51.9 Unspecified thoracic, thoracolumbar and lumbosacral intervertebral disc disorder; M48.00 Spinal stenosis, site unspecified; Z79.899 Other long term (current) drug therapy; Z79.01 Long term (current) use of anticoagulants; Z79.51 Long term (current) use of inhaled steroids; Z91.018 Allergy to other foods; Z88.8 Allergy status to other drugs, medicaments and biological substances; Z91.040 Latex allergy status; Z88.0 Allergy status to penicillin; Z88.1 Allergy status to other antibiotic agents; Z91.013 Allergy to seafood
CPT/HCPCS: 36415; 70450; 71045; 71260; 72125; 72128; 72131; 74177; 80048; 80076; 82550; 82553; 83605; 83690; 84439; 84443; 84484; 85025; 85610; 85730; 93005; 93041; 94760; 99285; Q9967

== ENCOUNTER → 2018-08-08 | Outpatient (CLI) | payer MEDICARE, OTHER ==
[~2018-08-08] MED LIST changes: +COUM7.5T PO; +MULTCAP PO; +[UNRECOGNIZED DRUG - OTHER] PO; +[UNRECOGNIZED DRUG - OTHER] PO; +zyflamend
== END ==
LOC: M LAB 07:07
PROVIDERS: ATTEND Urology
DX: C61 Malignant neoplasm of prostate (principal)

== ENCOUNTER → 2018-08-12 | Outpatient (CLI) | payer MEDICARE, OTHER ==
[2018-08-12 08:16] LABS: FREE T4 1.1 NG/DL (0.76-1.46); THYROID STIMULATING HORMONE 0.489 uIU/ML (0.358-3.740)
== END ==
LOC: M LAB 07:13
PROVIDERS: ATTEND Internal Medicine Endocrinology, Diabetes & Metabolism
DX: E03.9 Hypothyroidism, unspecified (principal)

== ENCOUNTER → 2018-08-28 | Outpatient (REF) | payer MEDICARE, OTHER ==
[2018-08-28 19:56] LABS: INFLUENZA A AMPLIFICATION NEGATIVE (NEGATIVE); INFLUENZA B AMPLIFICATION NEGATIVE (NEGATIVE)
== END ==
LOC: M LAB REF 10:20
PROVIDERS: ATTEND Physician Assistant
DX: J11.1 Influenza due to unidentified influenza virus with other respiratory manifestations (principal)

== ENCOUNTER 2018-09-23 16:41 | Emergency (ER) | payer MEDICARE, OTHER ==
[~2018-09-23] VITALS: Ht 182.9 cm; Wt 89.5 kg
[~2018-09-23 16:41] MED LIST changes: -/WARF5TA; +COUM1TAB17
[2018-09-23] MEDS ORDERED: NS 1,000 ML IV ONE (17:15)
[2018-09-23 17:32] LABS: BASO # 0.1 10^3/uL (0.0-0.2); BASO % 1.2 % (0.0-1.0); EOS # 0.3 10^3/uL (0.0-0.50); EOS % 4.4 % (0.0-3.0); HEMOGLOBIN 16.6 g/dl (13.5-17.5); LYMPH # 1.6 10^3/uL (1.5-4.5); LYMPH % 27.2 % (24.0-44.0); MEAN CORPUSCULAR HEMOGLOBIN 34.1 pg (27.0-33.0); MEAN CORPUSCULAR HGB CONC 36.1 g/dl (32.0-36.5); MEAN CORPUSCULAR VOLUME 94.5 fl (80.0-96.0); MONO # 0.8 10^3/uL (0.0-0.8); MONO % 14.5 % (0.0-5.0); NEUTROPHILS % 52.2 % (36.0-66.0); PLATELET COUNT, AUTOMATED 149 10^3/uL (150-450); RED BLOOD COUNT 4.87 10^6/uL (4.30-6.10); WHITE BLOOD COUNT 5.7 10^3/uL (4.0-10.0)
[2018-09-23 17:41] LABS: INR 2.39; PROTHROMBIN TIME 26.6 SECONDS (12.1-14.4)
[2018-09-23 17:56] LABS: ALBUMIN 3.9 GM/DL (3.2-5.2); ALT/SGPT 27 U/L (12-78); BILIRUBIN,DIRECT 0.1 MG/DL (0.0-0.2); BILIRUBIN,TOTAL 0.7 MG/DL (0.2-1.0); BLOOD UREA NITROGEN 13 MG/DL (7-18); C REACTIVE PROTEIN QUANTITATIV 0.36 MG/DL (0.00-0.30); CALCIUM LEVEL 8.8 MG/DL (8.8-10.2); CARBON DIOXIDE LEVEL 29 MEQ/L (21-32); CHLORIDE LEVEL 105 MEQ/L (98-107); CREATININE FOR GFR 0.91 MG/DL (0.70-1.30); GLOMERULAR FILTRATION RATE > 60.0 (>49); GLUCOSE, FASTING 81 MG/DL (70-100); POTASSIUM SERUM 3.8 MEQ/L (3.5-5.1); SODIUM LEVEL 140 MEQ/L (136-145); TOTAL PROTEIN 7.3 GM/DL (6.4-8.2)
[2018-09-23] MEDS ORDERED: ISOVUE-370 76% 100ML VIAL (Q9967) As Ordered ONE (17:59)
[2018-09-23 18:00] LABS: ERYTHROCYTE SEDIMENTATION RATE 8 mm/hr (0-20)
--- NOTE | 2018-09-23 18:01 | REP ---
Clinical: Left lower extremity pain and swelling. History of DVT currently on anticoagulant therapy. Technique: Cotton scale and color Doppler evaluation using linear high frequency transducer. Findings: Ultrasound examination of the left lower extremity deep venous structures from the common femoral vein to the popliteal vein demonstrates normal compressibility flow and wave patterns in response to respiration and augmentation. There is no evidence for acute deep venous thrombosis. A small focus of nonocclusive thrombus in the proximal posterior tibial vein remain stable compared to examination dated 09/26/2014. Impression: No evidence for acute deep venous thrombosis. Electronically Signed by Jordan Maki MD 09/23/2018 05:53 P
--- NOTE | 2018-09-23 18:22 | REP ---
Clinical: Acute chest pain and shortness of breath. Comparison: 07/09/2018. Technique: Axial contrast enhanced images from the thoracic inlet to the upper abdomen using 100 ml Isovue 370 intravenous contrast material with coronal and sagittal re-formations. Findings: Satisfactory enhancement of the pulmonary vasculature is achieved and no filling defects are identified to suggest pulmonary embolus. Trace chronic right middle lobe fibroatelectatic changes are similar to 07/09/2018. No further consolidation, effusion or pneumothorax. No obvious nodule or mass lesion. No adenopathy. Thoracic aorta is normal caliber without aneurysm or dissection. Heart and pericardium are normal. Impression: No evidence for pulmonary embolus. No acute mediastinal or pleuroparenchymal process appreciated. Electronically Signed by Jordan Maki MD 09/23/2018 06:14 P
[2018-09-23 19:04] VITALS: BP 174/98
--- NOTE | 2018-09-23 21:29 | ECGEPIP ---
Stationary ECG Study [facility] - ED Test Date: 2018-09-23 Pat Name: ALISON MOSCOSO Department: Room: - Gender: M Nurse Transitional: LESLYE : 1950 Requested By: FREDY JOSEPH PA-C Order Number: [id number] Reading MD: Gregor Heart Measurements Intervals [place] Rate: 54 P: 67 AL: 187 QRS: 1 QRSD: 106 T: 67 QT: 406 QTc: 388 Interpretive Statements SINUS BRADYCARDIA POSSIBLE LEFT ATRIAL ENLARGEMENT NONSPECIFIC T-WAVE ABNORMALITY Similar to tracing done 07-09-18 with decreased rate Electronically Signed On 09-23-2018 21:29:29 EDT by Gregor Heart
== END 2018-09-23 19:07 | disposition home or self-care (01) ==
LOC: M ED 16:41
DX: R60.0 Localized edema (principal); R00.1 Bradycardia, unspecified; R06.02 Shortness of breath; E78.5 Hyperlipidemia, unspecified; J45.909 Unspecified asthma, uncomplicated; M19.90 Unspecified osteoarthritis, unspecified site; F41.9 Anxiety disorder, unspecified; F42.9 Obsessive-compulsive disorder, unspecified; M48.00 Spinal stenosis, site unspecified; K90.0 Celiac disease; Z85.46 Personal history of malignant neoplasm of prostate; Z86.711 Personal history of pulmonary embolism; Z86.718 Personal history of other venous thrombosis and embolism; Z85.850 Personal history of malignant neoplasm of thyroid; Z90.89 Acquired absence of other organs; Z79.01 Long term (current) use of anticoagulants; Z79.899 Other long term (current) drug therapy; Z88.8 Allergy status to other drugs, medicaments and biological substances; Z88.6 Allergy status to analgesic agent; Z88.0 Allergy status to penicillin; Z91.018 Allergy to other foods; Z91.013 Allergy to seafood
CPT/HCPCS: 71275; 80048; 80076; 83605; 85025; 85610; 85652; 85730; 86140; 93005; 93971; 96360; 99284; Q9967

== ENCOUNTER → 2019-01-13 | Outpatient (CLI) | payer MEDICARE, OTHER ==
[2019-01-13 08:55] LABS: FREE T4 0.98 NG/DL (0.76-1.46); THYROID STIMULATING HORMONE 0.389 uIU/ML (0.358-3.740)
== END ==
LOC: M LAB 07:03
PROVIDERS: ATTEND Internal Medicine Endocrinology, Diabetes & Metabolism
DX: E03.9 Hypothyroidism, unspecified (principal)

== ENCOUNTER → 2019-02-13 | Outpatient (CLI) | payer MEDICARE, OTHER | LOC: M LAB 07:05 | PROVIDERS: ATTEND Urology | DX: C61 Malignant neoplasm of prostate (principal) ==

== ENCOUNTER → 2019-05-23 | Outpatient (CLI) | payer MEDICARE, OTHER ==
[~2019-05-23] MED LIST changes: +CHOL100029 PO; -VITAD1000T PO
[2019-05-23 08:03] LABS: FREE T4 0.93 NG/DL (0.76-1.46); THYROID STIMULATING HORMONE 0.684 uIU/ML (0.358-3.740)
== END ==
LOC: M LAB 07:01
PROVIDERS: ATTEND Internal Medicine Endocrinology, Diabetes & Metabolism
DX: C73 Malignant neoplasm of thyroid gland (principal)

== ENCOUNTER 2019-06-05 14:53 | Emergency (ER) | payer MEDICARE, OTHER ==
[~2019-06-05] VITALS: Ht 182.9 cm; Wt 94.6 kg
[2019-06-05 15:38] LABS: BASO # 0.1 10^3/uL (0.0-0.2); BASO % 1.2 % (0.0-1.0); EOS # 0.2 10^3/uL (0.0-0.5); EOS % 3.9 % (0.0-3.0); HEMATOCRIT 45.4 % (42.0-52.0); HEMOGLOBIN 15.5 g/dl (13.5-17.5); LYMPH # 1.5 10^3/uL (1.5-5.0); LYMPH % 26.4 % (24.0-44.0); MEAN CORPUSCULAR HEMOGLOBIN 33.2 pg (27.0-33.0); MEAN CORPUSCULAR HGB CONC 34.1 g/dl (32.0-36.5); MEAN CORPUSCULAR VOLUME 97.2 fl (80.0-96.0); MONO # 0.8 10^3/uL (0.0-0.8); MONO % 13.5 % (0.0-5.0); NEUTROPHILS # 3.1 10^3/uL (1.5-8.5); NEUTROPHILS % 54.8 % (36.0-66.0); PLATELET COUNT, AUTOMATED 149 10^3/uL (150-450); RED BLOOD COUNT 4.67 10^6/uL (4.30-6.10); WHITE BLOOD COUNT 5.7 10^3/uL (4.0-10.0)
--- NOTE | 2019-06-05 15:38 | REP ---
Portable chest x-ray: Single view. History: Chest pain. Comparison study: July 09, 2018. Findings: There is old post-traumatic deformity in the right clavicle. EKG electrodes are seen. The lungs are symmetrically aerated. There are some increased markings in the left base inferiorly question early infiltrate. The pleural angles are sharp. Heart is not enlarged. Pulmonary vasculature is not increased. There are surgical clips in the soft tissues of the neck bilaterally suggesting previous thyroid surgery. Impression: Subtle increased markings left base question early infiltrate. Otherwise no acute disease. Electronically Signed by Jah Clifford MD 06/05/2019 03:30 P
[2019-06-05 16:11] LABS: BLOOD UREA NITROGEN 14 MG/DL (7-18); CALCIUM LEVEL 9.2 MG/DL (8.8-10.2); CARBON DIOXIDE LEVEL 30 MEQ/L (21-32); CHLORIDE LEVEL 107 MEQ/L (98-107); CK-MB VALUE MASS 4.5 NG/ML (<3.6); CPK CREATINE PHOSPHOKINASE 200 U/L (39-308); CREATININE FOR GFR 1.02 MG/DL (0.70-1.30); GLOMERULAR FILTRATION RATE > 60.0 (>42); GLUCOSE, FASTING 81 MG/DL (70-100); MB/CK RELATIVE INDEX 2.25 (< OR =4); POTASSIUM SERUM 4.4 MEQ/L (3.5-5.1); SODIUM LEVEL 142 MEQ/L (136-145); TROPONIN I < 0.02 NG/ML (< 0.10)
[2019-06-05 16:39] LABS: C REACTIVE PROTEIN QUANTITATIV < 0.30 MG/DL (0.00-0.30)
[2019-06-05 17:47] LABS: ERYTHROCYTE SEDIMENTATION RATE 7 mm/hr (0-20)
[2019-06-05] MEDS ORDERED: LevoFLOXacin 750 MG TABLET PO ONE (18:15)
[2019-06-05] MEDS ORDERED: LEVA750T7 PO (18:21)
[2019-06-05 19:00] VITALS: BP 170/94
--- NOTE | 2019-06-06 22:01 | ECGEPIP ---
[facility] - ED Test Date: 2019-06-05 Pat Name: ALISON MOSCOSO Department: Room: - Gender: Male Manager Sterile: ARIANNA : 1950 Requested By: YULIET Jerome Order Number: [id number] Reading MD: Gloria Araujo Measurements Intervals [place] Rate: 55 P: 54 MN: 188 QRS: 12 QRSD: 106 T: 28 QT: 411 QTc: 394 Interpretive Statements SINUS BRADYCARDIA NONSPECIFIC T-WAVE ABNORMALITY SIMILAR 09/23/18 Electronically Signed on 06-06-2019 22:01:19 EST by Gloria Araujo
== END 2019-06-05 19:20 | disposition home or self-care (01) ==
LOC: M ED 14:53
DX: J18.9 Pneumonia, unspecified organism (principal); R07.89 Other chest pain; R00.1 Bradycardia, unspecified; R06.02 Shortness of breath; Z90.89 Acquired absence of other organs; Z86.711 Personal history of pulmonary embolism; K90.0 Celiac disease; K58.9 Irritable bowel syndrome, unspecified; Z88.8 Allergy status to other drugs, medicaments and biological substances; Z88.0 Allergy status to penicillin; Z91.018 Allergy to other foods; Z91.040 Latex allergy status; Z91.013 Allergy to seafood; Z79.899 Other long term (current) drug therapy; Z79.01 Long term (current) use of anticoagulants

== ENCOUNTER → 2019-07-13 | Outpatient (REF) | payer MEDICARE, OTHER ==
[~2019-07-13] MED LIST changes: -COEN100C PO; +CVS100LI4 PO; +GNP15SYP PO; +HYDR5LIQ2 PO; +HYDR5SYP PO; +LEVA750T7 PO; +PRED10TA2 PO; +TUSS1CAP5 PO; +UBID100C6 PO
[2019-07-13 20:24] LABS: INFLUENZA A AMPLIFICATION NEGATIVE (NEGATIVE); INFLUENZA B AMPLIFICATION NEGATIVE (NEGATIVE)
[2019-07-16 00:06] LABS: EBV VIRAL CAPSID AG IgM <36.0 U/mL (0.0-35.9)
== END ==
LOC: M LAB REF 18:50
PROVIDERS: ATTEND Physician Assistant
DX: R53.83 Other fatigue (principal)

== ENCOUNTER → 2019-08-08 | Outpatient (CLI) | payer MEDICARE, OTHER | LOC: M LAB 07:12 | PROVIDERS: ATTEND Urology | DX: C61 Malignant neoplasm of prostate (principal) ==

== ENCOUNTER 2019-08-11 19:24 | Observation (INO) | payer MEDICARE, OTHER ==
[~2019-08-11] VITALS: Ht 182.9 cm; Wt 93.8 kg
[2019-08-11 19:59] LABS: BASO # 0.1 10^3/uL (0.0-0.2); BASO % 1.4 % (0.0-1.0); EOS # 0.2 10^3/uL (0.0-0.5); EOS % 3.9 % (0.0-3.0); HEMATOCRIT 45.2 % (42.0-52.0); HEMOGLOBIN 16.3 g/dl (13.5-17.5); LYMPH # 1.6 10^3/uL (1.5-5.0); LYMPH % 29.2 % (24.0-44.0); MEAN CORPUSCULAR HEMOGLOBIN 34.1 pg (27.0-33.0); MEAN CORPUSCULAR HGB CONC 36.1 g/dl (32.0-36.5); MEAN CORPUSCULAR VOLUME 94.6 fl (80.0-96.0); MONO # 0.7 10^3/uL (0.0-0.8); MONO % 11.9 % (0.0-5.0); NEUTROPHILS % 53.1 % (36.0-66.0); PLATELET COUNT, AUTOMATED 143 10^3/uL (150-450); RED BLOOD COUNT 4.78 10^6/uL (4.30-6.10); WHITE BLOOD COUNT 5.6 10^3/uL (4.0-10.0)
[2019-08-11 20:15] LABS: INR 2.3; PROTHROMBIN TIME 25.1 SECONDS (11.8-14.0)
[2019-08-11 20:22] LABS: BLOOD UREA NITROGEN 13 MG/DL (7-18); CALCIUM LEVEL 8.8 MG/DL (8.8-10.2); CARBON DIOXIDE LEVEL 27 MEQ/L (21-32); CHLORIDE LEVEL 108 MEQ/L (98-107); CREATININE FOR GFR 0.95 MG/DL (0.70-1.30); GLOMERULAR FILTRATION RATE > 60.0 (>42); GLUCOSE, FASTING 115 MG/DL (70-100); POTASSIUM SERUM 3.9 MEQ/L (3.5-5.1); SODIUM LEVEL 140 MEQ/L (136-145)
[2019-08-11] MEDS ORDERED: LABETALOL HCL 100 MG/20 ML VIAL IV STA (20:30)
--- NOTE | 2019-08-11 20:53 | REPVR ---
PROCEDURE INFORMATION: Exam: CT Head Without Contrast Exam date and time: 08/11/2019 8:34 PM Age: 68 years old Clinical indication: Pain; Headache; Additional info: HTN headache TECHNIQUE: Imaging protocol: Computed tomography of the head without contrast. Radiation optimization: All CT scans at this facility use at least one of these dose optimization techniques: automated exposure control; mA and/or kV adjustment per patient size (includes targeted exams where dose is matched to clinical indication); or iterative reconstruction. COMPARISON: CT Head without contrast 07/09/2018 7:30 AM FINDINGS: Brain: There is moderate age related parenchymal volume loss. White matter changes are demonstrated in the subcortical, centrum semiovale and periventricular white matter consistent with age related small vessel white matter angiopathic gliosis. Ventricles: The degree of ventricular dilatation is normal for age and/or degree of atrophy present. Bones/joints: Unremarkable. No acute fracture. Sinuses: Visualized sinuses are unremarkable. No fluid levels. Mastoid air cells: Visualized mastoid air cells are well aerated. Soft tissues: Unremarkable. IMPRESSION: 1. There is moderate age related parenchymal volume loss. White matter changes are demonstrated in the subcortical, centrum semiovale and periventricular white matter consistent with age related small vessel white matter angiopathic gliosis. 2. The degree of ventricular dilatation is normal for age and/or degree of atrophy present. Electronically signed by: Joey Alston On 08/11/2019 20:52:47 PM
[2019-08-11 20:54] LABS: ALBUMIN 3.8 GM/DL (3.2-5.2); ALT/SGPT 32 U/L (12-78); BILIRUBIN,DIRECT 0.1 MG/DL (0.0-0.2); BILIRUBIN,TOTAL 0.6 MG/DL (0.2-1.0); CK-MB VALUE MASS 4.7 NG/ML (<3.6); CPK CREATINE PHOSPHOKINASE 229 U/L (39-308); MB/CK RELATIVE INDEX 2.05 (< OR =4); TOTAL PROTEIN 7.4 GM/DL (6.4-8.2); TROPONIN I < 0.02 NG/ML (< 0.10)
[2019-08-11] MEDS ORDERED: VITATAB73 PO (22:34)
[2019-08-11] MEDS ORDERED: NON-325T5 PO (22:34)
[2019-08-11] MEDS ORDERED: ASCO500T PO (22:34)
[2019-08-11] MEDS ORDERED: LEVO112T2 PO (22:44)
[2019-08-11] MEDS ORDERED: VITAD1000T PO (22:44)
[2019-08-11] MEDS ORDERED: FLON1SPR NARES (22:52)
[2019-08-11] MEDS ORDERED: NEXI40CA PO (22:52)
[2019-08-11] MEDS ORDERED: DULE200A INH (22:52)
[2019-08-11] MEDS ORDERED: SIMPLY SALINE NARES (22:52)
[2019-08-11 23:00] VITALS: BP 179/92
[2019-08-11] MEDS ORDERED: hydrALAZINE INJ 20 MG/ML VIAL IV ONE (23:15)
[2019-08-11] MEDS ORDERED: LOSARTAN 50 MG TAB PO ONE (23:15)
[2019-08-11] MEDS ORDERED: MORPHINE 4 MG/ML 1ML VIAL/SYRINGE (J2270) IV PRN (23:15)
[2019-08-11] MEDS ORDERED: ACETAMINOPHEN 325 MG TAB PO PRN (23:15)
[2019-08-11] MEDS ORDERED: MORPHINE 4 MG/ML 1ML VIAL/SYRINGE (J2270) IV ONE (23:15)
[2019-08-11 23:34] VITALS: BP 146/62
[2019-08-12] MEDS ORDERED: NITROGLYCERIN 2% OINT 1 GM *U/D* PKT TOP SCH
[2019-08-12] MEDS: MOMETASONE INH SCH ×2 (00:15→07:44)
[2019-08-12] MEDS: FORMOTEROL INH SCH ×2 (00:15→07:44)
[2019-08-12 00:22] VITALS: BP 148/70
[2019-08-12] MEDS ORDERED: NITROGLYCERIN 0.3 MG SUBL TAB SL PRN (00:45)
[2019-08-12] MEDS ORDERED: LORazepam 2 MG/ML VIAL (J2060) IV STA (01:25)
[2019-08-12 01:44] LABS: CK-MB VALUE MASS 3.7 NG/ML (<3.6); CPK CREATINE PHOSPHOKINASE 185 U/L (39-308); TROPONIN I < 0.02 NG/ML (< 0.10)
[2019-08-12 04:00] VITALS: BP 125/81
[2019-08-12] MEDS ORDERED: ACETAMINOPHEN TAB 650MG DOSE (2X325MG) PO PRN (04:44)
[2019-08-12] MEDS: LEVOTHYROXINE 125MCG TABLET (0.125MG) PO SCH ×2 (07:43→07:59)
[2019-08-12 07:44] VITALS: BP 136/80
[2019-08-12 08:00] VITALS: BP 136/80
--- NOTE | 2019-08-12 08:38 | REP ---
Portable chest, 08:37 p.m., single AP view with the patient sitting: Comparison is 06/30/2019. The lung moore are clear. Cardiac size is normal. The larry, mediastinum, and skeletal structures are unremarkable except for surgical clips at the base of the neck bilaterally, unchanged. There is chronic elevation of the right hemidiaphragm, unchanged. Impression: There are no acute cardiopulmonary changes. Electronically Signed by Carson Lee MD 08/12/2019 08:29 A
[2019-08-12] MEDS ORDERED: VITAMIN D 1,000 INTERNATIONAL UNITS TABLET PO SCH (09:00)
[2019-08-12] MEDS ORDERED: LOSARTAN 50 MG TAB PO SCH (09:00)
[2019-08-12] MEDS ORDERED: ASCORBIC ACID 500 MG TAB PO SCH (09:00)
[2019-08-12] MEDS ORDERED: FLUTICASONE PROP 0.05% NASAL SPRAY 16 GM (FLONASE) NARES SCH (09:00)
[2019-08-12] MEDS ORDERED: CO-ENZYME Q10 50 MG CAP PO SCH (09:00)
[2019-08-12 09:04] LABS: HEMATOCRIT 44.1 % (42.0-52.0); HEMOGLOBIN 15.7 g/dl (13.5-17.5); MEAN CORPUSCULAR HEMOGLOBIN 33.6 pg (27.0-33.0); MEAN CORPUSCULAR HGB CONC 35.6 g/dl (32.0-36.5); MEAN CORPUSCULAR VOLUME 94.4 fl (80.0-96.0); PLATELET COUNT, AUTOMATED 134 10^3/uL (150-450); RED BLOOD COUNT 4.67 10^6/uL (4.30-6.10); WHITE BLOOD COUNT 5.8 10^3/uL (4.0-10.0)
[2019-08-12] MEDS ORDERED: LISI-542 PO ×2 (09:28→10:52)
[2019-08-12] MEDS ORDERED: MELA3TAB60 PO (09:28)
[2019-08-12 09:40] LABS: BLOOD UREA NITROGEN 13 MG/DL (7-18); CALCIUM LEVEL 8.4 MG/DL (8.8-10.2); CARBON DIOXIDE LEVEL 30 MEQ/L (21-32); CHLORIDE LEVEL 109 MEQ/L (98-107); CK-MB VALUE MASS 3.2 NG/ML (<3.6); CPK CREATINE PHOSPHOKINASE 238 U/L (39-308); CREATININE FOR GFR 0.84 MG/DL (0.70-1.30); GLOMERULAR FILTRATION RATE > 60.0 (>42); GLUCOSE, FASTING 109 MG/DL (70-100); MB/CK RELATIVE INDEX 1.34 (< OR =4); POTASSIUM SERUM 4.3 MEQ/L (3.5-5.1); SODIUM LEVEL 142 MEQ/L (136-145); TROPONIN I < 0.02 NG/ML (< 0.10)
[2019-08-12] MEDS ORDERED: LOSA25TA14 PO (10:28)
--- NOTE | 2019-08-12 12:25 | HPE ---
DATE OF ADMISSION: 08/11/2019 CHIEF COMPLAINT: Epistaxis. 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 Rojo who presents to the emergency room with acute onset of epistaxis after dinner today. Patient felt a pop in the right naris and soaked a towel at home prompting him to come to the emergency room. This was accompanied with some sternal chest pain on the left anterior chest reproducible when he presses on it as well as left sided neck pain. Patient says that he had reconstructive nasal surgery before with a pin hole that could not be sutured. He does get occasional epistaxis which resolves in his own when his nares are dry. The patient felt that the nose bleed just poured out of him. He also complains of insomnia for the past several months and diffuse headache. Initially was bandlike across the forehead and had shooting pain along the left side of the neck and left anterior chest without any shortness of breath, pressure or lightheadedness. Patient's chest pain was not pleuritic. He was seen in the ER and found to have uncontrolled blood pressure with a presenting pressure of 237/113. Patient has no documented history of elevated blood pressure but has noted that during his physician visit he normally runs 199/101 when he was seen in the emergency room and when he had chest pain on 06/30/2019 and his doctors office usually runs 150 systolic. The patient denied any changes in vision, diplopia or blurred vision. Denies any nausea, vomiting, or epigastric pain. He does complain of right sided flank pain which he says shoots down his leg with history of sciatica. Spinal stenosis in the past managed by Dr. Lucas previously. Usually improved when he has his inversion device at home which he was told he can not use these days because he is chronically on Coumadin for DVT and PE in the past. In the ER he received IV Labetalol 10 mg, losartan and hydralazine with improvement of blood pressure to 148/70, EKG showed no acute ischemia. Troponin was less than 0.02. Patient is convinced that his high blood pressure is due to lack of sleep for the past 7 months. He barely sleeps 2 hours a day due to severe anxiety despite being very active during the day. He walks 2.5 miles daily and has a good sleep regimen with no television in the room. Patient is still unable to sleep. He had notified his primary care physician night monitor and power brake operator that they were recommending no sedatives. Mild obstructive sleep apnea. PAST MEDICAL HISTORY: Prostate cancer, robotic prostatectomy, follows with Dr. Rojo. 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 PAST SURGICAL HISTORY: Rhinoseptoplasty, laser disc surgery, total thyroidectomy, robotic prostatectomy, grade 1 diastolic dysfunction with preserved ejection fraction, hiatal hernia. ALLERGIES: Celebrex, doxycycline, Keflex, Penicillin. HOME MEDICATIONS: Oscal 1 tab twice a day, Dulera 2 puffs inhaled twice a day, multivitamin 1 tablet daily, vitamin B 1 tablet four times a day, garlic with lecithin 600 mg four times a day, saline nasal spray twice a day, acetaminophen 650 mg every 4 hours as needed, ascorbic acid 1 gram four times a day, vitamin D 1000 units four times a day, Nexium 40 mg daily, fluticasone 1 puff twice a day, levothyroxine 125 mcg three times a week, 112 mcg 3 weeks a week, coenzyme Q10 100 mg twice a day, warfarin 5 mg daily. SOCIAL HISTORY: The patient denies any history of smoking or alcohol use. 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 No caffeine use. No recreational drug use. Denies smoking, retired, health care proxy is the . FAMILY HISTORY: Coronary artery disease, father, grandfather, uncle of CAD. REVIEW OF SYSTEMS: Per HPI 12 point system otherwise negative. PHYSICAL EXAMINATION: Temperature 97.5, pulse 60, respiratory rate 18, blood pressure on arrival was 236/113, currently 148/70, 96% on room air. Generally the patient is extremely anxious. He appears to be jittery. Pressured speech. He has dried blood on the right naris. No JVD and no thyromegaly, dry mucous membranes. Lungs are clear to auscultation. No wheezing rales or rhonchi. Heart S1, S2 sinus rhythm. Abdomen is soft and nontender, and nondistended. Positive bowel sounds. Extremities no cyanosis, clubbing or pitting edema. LABORATORY DATA: EKG is pending. White count 5.6, hemoglobin 16, hematocrit 45, platelet count 143, sodium 140, potassium 3.9, chloride 108, bicarbonate 27, BUN 13, creatinine 0.95, glucose 115, calcium 8.8, ALT 32, alkaline phos 81, total CK 229, MB fraction 4.74, troponin less than 0.02, total protein 7.4, albumin 3.8. CT of the head moderate age related parenchymal volume loss. White matter changes demonstrated in a subcortical centrum semiovale periventricular consistent with age related small vessel white matter angiopathic gliosis. Degree of interval dilatation is normal for age and or degree of atrophy present. Chest x-ray no acute cardiopulmonary process. ASSESSMENT AND PLAN: This is a 68-year-old male with a history of multiple endocrine neoplasia without chromocytoma medullary carcinoma of the thyroid with total thyroidectomy with surgical hypothyroidism. Celiac disease, recurrent PE, DVT, anxiety, depression, fibromyalgia, spinal stenosis, asthma, hiatal hernia secondary to hyperparathyroidism, dyslipoproteinemia, colonic polypoid tubular adenoma and prostate cancer status-post robotic proctectomy who follows with Dr. Rojo who presents to the emergency room with acute onset of epistaxis and hypotensive urgency. ACTIVE ISSUES: 1. Hypertensive urgency, patient to be given Labetalol, currently in sinus bradycardia 57-58. He has been given Losartan 50 mg twice a day, he does have grade 1 diastolic dysfunction on previous echo done at Dr. Buitrago's office. Monitor patient's creatinine in the morning. 2. Insomnia. Patient will be given one dose of Ativan. 3. Mild obstructive sleep apnea, currently not on CPAP. 4. Asthma. Lungs are clear. As needed nebulizers as needed. 5. Epistaxis secondary to hypertensive urgency in the setting of Coumadin being taken for a history of PE and DVT with acute blood loss. ER physician has stabilized the bleed and did not require any packing. No significant anemia requiring any blood transfusion. The patient is breathing well on room air. He is continued on his home dose of Warfarin for DVT and PE, saturations are 96% on room air with no respiratory distress. 6. Hiatal hernia. Resume on home dose of Protonix. 7. Hypothyroidism which is surgical due to total thyroidectomy for medullary thyroid cancer. Continue on home dose of Synthroid. 8. Chest pain, troponins are negative. Continue to cycle cardial markers and repeat EKG. Patient's pain is reproducible most likely musculoskeletal. Nitroglycerin as needed. Morphine as needed. 9. Anxiety and depression. Outpatient followup with his primary care physician. 10. DVT prophylaxis on chronic warfarin. Code status full code. MTDD
--- NOTE | 2019-08-12 14:52 | DS.PDOC ---
Discharge Summary General Date of Admission Aug 11, 2019 at 19:25 Date of Discharge 08/12/19 Discharge Summary PROCEDURES PERFORMED DURING STAY: [None]. ADMITTING DIAGNOSES: Hypertensive emergency Insomnia obstructive sleep apnea Epistaxis Hiatal hernia Hypothyroidism Chest pain Anxiety and depression DISCHARGE DIAGNOSES: Hypertensive emergency Insomnia obstructive sleep apnea Epistaxis Hiatal hernia Hypothyroidism Chest pain Anxiety and depression COMPLICATIONS/CHIEF COMPLAINT: Hypertensive Urgency. HISTORY OF PRESENT ILLNESS:This is a 68-year-old male with a history of multiple endocrine neoplasia without pheochromocytoma or hyperparathyroidism. 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 Rojo who presents to the emergency room with acute onset of epistaxis after dinner today. Patient felt a pop in the right naris and soaked a towel at home prompting him to come to the emergency room. This was accompanied with some sternal chest pain on the left anterior chest reproducible when he presses on it as well as left sided neck pain. Patient says that he had reconstructive nasal surgery before with a pin hole that could not be sutured. He does get occasional epistaxis which resolves in his own when his nares are dry. The patient felt that the nose bleed just poured out of him. He also complains of insomnia for the past several months and diffuse headache. Initially was bandlike across the forehead and had shooting pain along the left side of the neck and left anterior chest without any shortness of breath, pressure or lightheadedness. Patient's chest pain was not pleuritic. He was seen in the ER and found to have uncontrolled blood pressure with a presenting pressure of 237/113. Patient has no documented history of elevated blood pressure but has noted that during his physician visit he normally runs 199/101 when he was seen in the emergency room and when he had chest pain on 06/30/2019 and his doctors office usually runs 150 systolic. The patient denied any changes in vision, diplopia or blurred vision. Denies any nausea, vomiting, or epigastric pain. He does complain of right sided flank pain which he says shoots down his leg with history of sciatica. Spinal stenosis in the past managed by Dr. Lucas previously. Usually improved when he has his inversion device at home which he was told he can not use these days because he is chronically on Coumadin for DVT and PE in the past. In the ER he received IV Labetalol 10 mg, losartan and hydralazine with improvement of blood pressure to 148/70, EKG showed no acute ischemia. Troponin was less than 0.02. Patient is convinced that his high blood pressure is due to lack of sleep for the past 7 months. He barely sleeps 2 hours a day due to severe anxiety despite being very active during the day. He walks 2.5 miles daily and has a good sleep regimen with no television in the room. Patient is still unable to sleep. He had notified his primary care physician sugar laboratory assistant and equine science instructor that they were recommending no sedatives. Mild obstructive sleep apnea. HOSPITAL COURSE: During hospital stay, epistaxis resolved. Blood pressure was normalized. The following issue addressed 1. Hypertensive urgency, patient to be given Labetalol, currently in sinus bradycardia 57-58. He has been given Losartan 50 mg twice a day, he does have grade 1 diastolic dysfunction on previous echo done at Dr. Buitrago's office. Blood pressure was stable in the morning, patient was normotensive. Recommended to continue Aram inhibitors 2. Insomnia. Patient received one dose of Ativan. I recommended melatonin on discharge 3. Mild obstructive sleep apnea, currently not on CPAP. 4. Asthma. Lungs are clear. As needed nebulizers as needed. 5. Epistaxis secondary to hypertensive urgency in the setting of Coumadin being taken for a history of PE and DVT with acute blood loss. ER physician has stabilized the bleed and did not require any packing. No significant anemia requiring any blood transfusion. The patient is breathing well on room air. He is continued on his home dose of Warfarin for DVT and PE, saturations are 96% on room air with no respiratory distress. 6. Hiatal hernia. Resume on home dose of Protonix. 7. Hypothyroidism which is surgical due to total thyroidectomy for medullary thyroid cancer. Continue on home dose of Synthroid. 8. Chest pain, troponins are negative. Continue to cycle cardial markers and repeat EKG. Patient's pain is reproducible most likely musculoskeletal. Nitroglycerin as needed. Morphine as needed. DISCHARGE MEDICATIONS: Please see below. ALLERGIES: Please see below. PHYSICAL EXAMINATION ON DISCHARGE: VITAL SIGNS: Please see below. Objective: VITAL SIGNS: Please see below. GENERAL APPEARANCE: Well-nourished, well-developed, not in apparent distress HEENT: Normocephalic, atraumatic. Mucous members moist and pink CARDIOVASCULAR: Regular rate and rhythm. No murmurs, rubs or gallops. Radial p ulses are intact. There is no lower extremity edema LUNGS: Diminished lung sounds ABDOMEN: Abdomen is soft and nontender. MUSCULOSKELETAL: Range of motion is intact in all 4 extremities NEUROLOGICAL: Cranial nerves II-12 are grossly intact. Speech is not dysarthric LABORATORY DATA: Please see below. IMAGING: [facility] NAME: ALISON MOSCOSO DATE OF : 1950 BUSINESS NUMBER: [id number] AGE: 68 SEX: M REPORT #: [id number] ROOM: ED TECHNOLOGIST: CHEO DOCTOR: YULIET PANDEY MD Ordered for Date&Time: 08/11/192027 cc: [~ rep ct ivnm] Service Date&Time: 08/11/192033 This report is in Signed status. Interpretation performed by [facility]. Thank you for having your radiology procedures performed at [facility] RADIOLOGY REPORT Date&Time printed: [~ rep prt dt last] [~ rep prt tm last] Page 2 of 2 [place] [id number] RADIOLOGY REPORT This report is in Signed status. Interpretation performed by [facility]. Thank you for having your radiology procedures performed at [facility] RADIOLOGY REPORT Date&Time printed: [~ rep prt dt last] [~ rep prt tm last] Page 1 of 2 PROCEDURE INFORMATION: Exam: CT Head Without Contrast Exam date and time: 08/11/2019 8:34 PM Age: 68 years old Clinical indication: Pain; Headache; Additional info: HTN headache TECHNIQUE: Imaging protocol: Computed tomography of the head without contrast. Radiation optimization: All CT scans at this facility use at least one of these dose optimization techniques: automated exposure control; mA and/or kV adjustment per patient size (includes targeted exams where dose is matched to clinical indication); or iterative reconstruction. COMPARISON: CT Head without contrast 07/09/2018 7:30 AM FINDINGS: Brain: There is moderate age related parenchymal volume loss. White matter changes are demonstrated in the subcortical, centrum semiovale and periventricular white matter consistent with age related small vessel white matter angiopathic gliosis. Ventricles: The degree of ventricular dilatation is normal for age and/or degree of atrophy present. Bones/joints: Unremarkable. No acute fracture. Sinuses: Visualized sinuses are unremarkable. No fluid levels. Mastoid air cells: Visualized mastoid air cells are well aerated. Soft tissues: Unremarkable. IMPRESSION: 1. There is moderate age related parenchymal volume loss. White matter changes are demonstrated in the subcortical, centrum semiovale and periventricular white matter consistent with age related small vessel white matter angiopathic gliosis. 2. The degree of ventricular dilatation is normal for age and/or degree of atrophy present. Electronically signed by: Joey Calabrese On 08/11/2019 20:52:47 PM DD: JOEY CALABRESE MD 08/11/192033 DT: PARRISH 08/11/192051 DS: PO 08/11/192051 [~ rep ct labl] PROGNOSIS: Favorable ACTIVITY: As tolerated DIET: Cardiac DISCHARGE PLAN: Follow-up with PCP and ENT DISPOSITION: . Home DISCHARGE INSTRUCTIONS: Take prescribed medications ITEMS TO FOLLOWUP ON ON OUTPATIENT: Check blood pressure daily DISCHARGE CONDITION: [Stable]. TIME SPENT ON DISCHARGE: Greater than 20 minutes. Vital Signs/I&Os Vital Signs Date Time Temp Pulse Resp B/P (MAP) Pulse Ox O2 Delivery O2 Flow Rate FiO2 08/12/19 08:00 96.9 55 17 136/80 (98) 97 Room Air I&O- Last 24 Hours up to 6 AM 08/12/19 06:00 Intake Total 0 ml Output Total 0 ml Balance 0 ml Laboratory Data Labs 24H Laboratory Tests 2 08/11/19 19:46: Immature Granulocyte % (Auto) 0.5, Neutrophils (%) (Auto) 53.1, Lymphocytes (%) (Auto) 29.2, Monocytes (%) (Auto) 11.9H, Eosinophils (%) (Auto) 3.9H, Basophils (%) (Auto) 1.4H, Neutrophils # (Auto) 3.0, Lymphocytes # (Auto) 1.6, Monocytes # (Auto) 0.7, Eosinophils # (Auto) 0.2, Basophils # (Auto) 0.1, Nucleated Red Blood Cells % (auto) 0.0, Prothrombin Time 25.1H, Prothromb Time International Ratio 2.30, Anion Gap 5L, Glomerular Filtration Rate > 60.0, Calcium Level 8.8, Total Bilirubin 0.6, Direct Bilirubin 0.1, Aspartate Amino Transf (AST/SGOT) 42H, Alanine Aminotransferase (ALT/SGPT) 32, Alkaline Phosphatase 81, Total Creatine Kinase 229, Creatine Kinase MB 4.7H, Creatine Kinase MB Relative Index 2.05, Troponin I < 0.02, Total Protein 7.4, Albumin 3.8, Albumin/Globulin Ratio 1.06 08/12/19 00:58: Total Creatine Kinase 185, Creatine Kinase MB 3.7H, Creatine Kinase MB Relative Index 2.00, Troponin I < 0.02 08/12/19 08:46: Nucleated Red Blood Cells % (auto) 0.0, Anion Gap 3L, Glomerular Filtration Rate > 60.0, Calcium Level 8.4L, Total Creatine Kinase 238, Creatine Kinase MB 3.2, Creatine Kinase MB Relative Index 1.34, Troponin I < 0.02 CBC/BMP Laboratory Tests 08/11/19 19:46 08/12/19 08:46 Discharge Medications Scheduled Ascorbic Acid (Ascorbic Acid) 500 Mg Tablet, 1,000 MG PO QID, (Reported) Calcium Carbonate/Magnesium Ox (Oyster Shell Calcium-Magnes Tb) 1 Tab Tab, 1 TAB PO BID, (Reported) Cholecalciferol (Vitamin D3) (Vitamin D3) 1,000 Unit Tablet, 1,000 UNITS PO QID, (Reported) Esomeprazole Magnesium (Nexium) 40 Mg Capsule.dr, 40 MG PO DAILY, (Reported) TAKES AT 1630 Fluticasone Propionate (Flonase Allergy Relief) 9.9 Ml [place].susp, 1 PUFF NARES BID, (Reported) Levothyroxine Sodium (Levothyroxine Sodium) 125 Mcg Tab, 125 MCG PO 3XW, (Reported) TAKES WEDNESDAY, WEDNESDAY, WEDNESDAY AND WEDNESDAY Levothyroxine Sodium (Levothyroxine Sodium) 112 Mcg Tablet, 112 MCG PO 3XW, (Reported) TAKES ON WEDNESDAY, WEDNESDAY AND WEDNESDAY Lisinopril (Lisinopril) 5 Mg Tablet, 5 MG PO DAILY Melatonin (Melatonin) 3 Mg Tablet, 1 TAB PO QPM for sleep Mometasone Furoate (Asmanex) 220 Mcg/Inh Aer, 220 MCG IN BID, (Reported) Mometasone/Formoterol (Dulera 200 Mcg/5 Mcg Inhaler) 13 Gm Hfa.aer.ad, 2 PUFF INH BID, (Reported) Multivitamin (Multivitamins) 1 Cap Cap, 1 CAP PO DAILY, (Reported) Ubidecarenone (Coenzyme Q10) 100 Mg Cap, 100 MG PO BID, (Reported) Vitamin B Complex (Vitamin B Complex) 1 Each Tablet, 1 TAB PO QID, (Reported) Warfarin Sodium (Coumadin) 5 Mg Tab, 5 MG PO DAILY, (Reported) [IP6 gold] , 800 MG PO BID, (Reported) [Simply Saline] , 1 SPRAY NARES BID, (Reported) [garlic with lectin] , 600 MG PO QID, (Reported) [zyflamend] , 1 TAB PO BID, (Reported) Scheduled PRN Acetaminophen (Acetaminophen) 325 Mg Tablet, 650 MG PO Q4H PRN for PAIN, (Reported) Allergies Coded Allergies: Cephalosporins (Verified Allergy, Unknown, 09/23/18) Gluten Flour (Verified Allergy, Unknown, 09/23/18) NSAIDS (Non-Steroidal Anti-Inflamma (Verified Allergy, Unknown, 09/23/18) Pea (Verified Allergy, Unknown, 09/23/18) Penicillins (Verified Allergy, Unknown, 09/23/18) banana (Verified Allergy, Unknown, 09/23/18) celecoxib (Verified Allergy, Unknown, 09/23/18) latex (Verified Allergy, Unknown, 09/23/18) mushroom (Verified Allergy, Unknown, 09/23/18) rofecoxib (Verified Allergy, Unknown, 09/23/18) shellfish derived (Verified Allergy, Unknown, 09/23/18) CHELY MIN DO Aug 12, 2019 14:51
--- NOTE | 2019-08-12 14:59 | ECGEPIP ---
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
[2019-08-12] MEDS ORDERED: PANTOPRAZOLE 40MG TAB (PROTONIX) PO SCH (16:30)
[2019-08-12] MEDS ORDERED: WARFARIN SOD 5 MG TAB PO SCH (17:00)
--- NOTE | 2019-08-13 20:39 | ECGEPIP ---
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
[2019-08-14] MEDS ORDERED: LEVOTHYROXINE 112MCG TABLET (0.112MG) PO SCH (09:00)
== END 2019-08-12 11:17 | disposition home or self-care (01) ==
LOC: M ED 19:24 → M ED INP 19:25
PROVIDERS: ADMIT General Practice; ATTEND General Practice
DX: I16.0 Hypertensive urgency (principal); G47.00 Insomnia, unspecified; G47.33 Obstructive sleep apnea (adult) (pediatric); R04.0 Epistaxis; K44.9 Diaphragmatic hernia without obstruction or gangrene; R07.9 Chest pain, unspecified; E78.5 Hyperlipidemia, unspecified; F41.9 Anxiety disorder, unspecified; M79.7 Fibromyalgia; E89.0 Postprocedural hypothyroidism; J45.909 Unspecified asthma, uncomplicated; M48.00 Spinal stenosis, site unspecified; K90.0 Celiac disease; Z86.711 Personal history of pulmonary embolism; Z86.718 Personal history of other venous thrombosis and embolism; Z85.850 Personal history of malignant neoplasm of thyroid; Z85.46 Personal history of malignant neoplasm of prostate; Z88.0 Allergy status to penicillin; Z91.040 Latex allergy status; Z91.013 Allergy to seafood; Z91.018 Allergy to other foods; Z88.8 Allergy status to other drugs, medicaments and biological substances
CPT/HCPCS: 36415; 70450; 71045; 80048; 80076; 82550; 82553; 84484; 85025; 85027; 85610; 93005; 93041; 94760; 96374; 96375; 99285; G0378; J2060; J2270

== ENCOUNTER → 2019-09-04 | Outpatient (CLI) | payer MEDICARE, OTHER ==
[~2019-09-04] MED LIST changes: +ASCO500T PO; +DULE200A INH; +FLON1SPR NARES; +LEVO112T2 PO; +LISI-542 PO; +LOSA25TA14 PO; +MELA3TAB60 PO; +NEXI40CA PO; +NON-325T5 PO; +SIMPLY SALINE NARES; +VITAD1000T PO; +VITATAB73 PO
== END ==
LOC: M LAB 07:00
PROVIDERS: ATTEND Internal Medicine Endocrinology, Diabetes & Metabolism
DX: E31.22 Multiple endocrine neoplasia [MEN] type IIA (principal)

== ENCOUNTER → 2019-09-05 | Outpatient (REF) | payer MEDICARE, OTHER | LOC: M LAB REF 10:24 | PROVIDERS: ATTEND Internal Medicine Endocrinology, Diabetes & Metabolism | DX: E31.22 Multiple endocrine neoplasia [MEN] type IIA (principal) ==

== ENCOUNTER → 2019-11-15 | Outpatient (CLI) | payer MEDICARE, OTHER ==
[~2019-11-15] MED LIST changes: -MELA3TAB60 PO; +MELA3TAB7 PO
== END ==
LOC: M LAB 07:11
PROVIDERS: ATTEND Internal Medicine Endocrinology, Diabetes & Metabolism
DX: E31.22 Multiple endocrine neoplasia [MEN] type IIA (principal)

== ENCOUNTER → 2019-11-30 | Outpatient (CLI) | payer MEDICARE, OTHER ==
[~2019-11-30] MED LIST changes: -COUM7.5T PO; +COUM7.5T6 PO
== END ==
LOC: M LAB 07:05
PROVIDERS: ATTEND Internal Medicine Endocrinology, Diabetes & Metabolism
DX: E31.22 Multiple endocrine neoplasia [MEN] type IIA (principal)

== ENCOUNTER 2019-12-20 15:35 | Emergency (ER) | payer MEDICARE, OTHER ==
[~2019-12-20] VITALS: Ht 182.9 cm; Wt 88.3 kg
--- NOTE | 2019-12-20 16:01 | REP ---
CT brain without contrast: History: Head injury. Comparison head CT study August 11, 2019. CT findings: Preliminary digital rigging worker radiograph is unremarkable. On bone window settings, there is no evidence of skull fracture or bony destructive lesion. The visualized paranasal sinuses remain clear. No intraorbital abnormality is seen. There is mild generalized volume loss. Periventricular white matter low density is seen in the frontal lobes bilaterally consistent with mild small vessel changes. There is no evidence of intracranial hemorrhage. No infarct, mass, extra-axial fluid collection, or midline shift is seen. Impression: Negative noncontrast head CT. No skull fracture or intracranial injury. Electronically Signed by Jah Clifford MD 12/20/2019 03:53 P
--- NOTE | 2019-12-20 16:07 | REP ---
CT study of the cervical spine without contrast: History: Head injury. Comparison CT study of the cervical spine is from July 09, 2018. Technique: Helical scanning is acquired and overlapping 2 mm high resolution axial images were generated and reviewed at bone and soft tissue window settings. Coronal and sagittal multiplanar re-formations images are generated. CT findings: There is some straightening of the normal cervical lordosis. Degenerative disc disease is again noted at C5-6 and to a lesser extent C4-5. Vertebral body heights are preserved. No fracture or subluxation is seen. Pedicles and posterior elements are intact. Facets are normally aligned. There is osteoarthritic facet hypertrophy on the left in the mid cervical spine unchanged from comparison study. There are mild pleuroparenchymal changes in the lung apices consistent with fibrosis. Post thyroidectomy changes. There is no evidence of cervical spine element fracture. No skull base fracture is seen. Cervical vertebral body heights are preserved. Alignment is normal. Facet joints are normally aligned bilaterally at each cervical level on multiplanar re-formations images. There is no evidence of intraspinal or paraspinal hematoma. No extra vertebral abnormality is seen. Impression: Degenerative spondylosis changes. Post thyroid surgery clips. Otherwise negative CT study of the cervical spine without contrast. No fracture seen. Electronically Signed by Jah Clifford MD 12/20/2019 03:59 P
[2019-12-20] MEDS ORDERED: COUM1TAB17 PO (16:11)
[2019-12-20] MEDS ORDERED: ALPR0.25 PO (16:11)
[2019-12-20 17:15] LABS: HEMATOCRIT 43.2 % (42.0-52.0); HEMOGLOBIN 14.9 g/dl (13.5-17.5)
[2019-12-20 17:25] LABS: INR 1.8; PROTHROMBIN TIME 20.6 SECONDS (11.8-14.0)
[2019-12-20 17:26] LABS: PARTIAL THROMBOPLASTIN TIME 30.1 SECONDS (25.0-38.4)
[2019-12-20 18:02] VITALS: BP 155/81
== END 2019-12-20 18:03 | disposition home or self-care (01) ==
LOC: M ED 15:35
DX: S06.0X0A Concussion without loss of consciousness, initial encounter (principal); W19.XXXA Unspecified fall, initial encounter; Y93.H2 Activity, gardening and landscaping; Y92.007 Garden or yard of unspecified non-institutional (private) residence as the place of occurrence of the external cause; Y99.9 Unspecified external cause status; R51 Headache; Z86.711 Personal history of pulmonary embolism; Z79.01 Long term (current) use of anticoagulants; Z88.0 Allergy status to penicillin; Z88.1 Allergy status to other antibiotic agents; Z91.040 Latex allergy status; Z91.013 Allergy to seafood; Z91.018 Allergy to other foods; Z91.81 History of falling

== ENCOUNTER → 2020-01-24 | Outpatient (CLI) | payer MEDICARE, OTHER ==
[~2020-01-24] MED LIST changes: +ALPR0.25 PO; +COEN100C4 PO; +D31000TA2 PO; -UBID100C6 PO; -VITAD1000T PO
[2020-03-22 22:30] LABS: FREE T4 1.11 NG/DL (0.76-1.46); THYROID STIMULATING HORMONE 0.133 uIU/ML (0.358-3.740)
== END ==
LOC: M LAB 07:36
PROVIDERS: ATTEND Internal Medicine Endocrinology, Diabetes & Metabolism
DX: E03.9 Hypothyroidism, unspecified (principal)

== ENCOUNTER → 2020-04-04 | Outpatient (CLI) | payer MEDICARE, OTHER ==
[2020-04-04 08:10] LABS: FREE T4 0.99 NG/DL (0.76-1.46); THYROID STIMULATING HORMONE 0.7 uIU/ML (0.358-3.740)
== END ==
LOC: M LAB 06:57
PROVIDERS: ATTEND Internal Medicine Endocrinology, Diabetes & Metabolism
DX: E03.9 Hypothyroidism, unspecified (principal)

== ENCOUNTER → 2020-08-05 | Outpatient (CLI) | payer MEDICARE, OTHER ==
[~2020-08-05] MED LIST changes: +ACET-838 PO; -LISI-542 PO; +LISI-898 PO; -NON-325T5 PO
== END ==
LOC: M LAB 07:13
PROVIDERS: ATTEND Urology
DX: C61 Malignant neoplasm of prostate (principal)

== ENCOUNTER → 2020-09-30 | Outpatient (CLI) | payer MEDICARE, OTHER ==
[~2020-09-30] MED LIST changes: -ACET-838 PO; +ACET32TAB PO
[2020-09-30 08:51] LABS: FREE T4 0.99 NG/DL (0.76-1.46); THYROID STIMULATING HORMONE 1.01 uIU/ML (0.358-3.740)
== END ==
LOC: M LAB 07:19
PROVIDERS: ATTEND Internal Medicine Endocrinology, Diabetes & Metabolism
DX: E31.22 Multiple endocrine neoplasia [MEN] type IIA (principal); C73 Malignant neoplasm of thyroid gland

== ENCOUNTER 2020-10-22 22:42 | Emergency (ER) | payer MEDICARE, OTHER ==
[~2020-10-22] VITALS: Ht 182.9 cm; Wt 91.7 kg
[2020-10-22] MEDS ORDERED: TRAM50TA2 PO (23:30)
[2020-10-22] MEDS ORDERED: PRIS50TA PO (23:30)
[2020-10-22 23:32] LABS: BASO # 0.1 10^3/uL (0.0-0.2); BASO % 0.7 % (0.0-1.0); EOS # 0.1 10^3/uL (0.0-0.5); EOS % 1.1 % (0.0-3.0); HEMOGLOBIN 15.8 g/dl (13.5-17.5); LYMPH # 1.2 10^3/uL (1.5-5.0); LYMPH % 12.9 % (24.0-44.0); MEAN CORPUSCULAR HEMOGLOBIN 33.1 pg (27.0-33.0); MEAN CORPUSCULAR HGB CONC 35.1 g/dl (32.0-36.5); MEAN CORPUSCULAR VOLUME 94.3 fl (80.0-96.0); MONO # 1.3 10^3/uL (0.0-0.8); MONO % 14.6 % (2.0-8.0); NEUTROPHILS # 6.3 10^3/uL (1.5-8.5); NEUTROPHILS % 70.4 % (36.0-66.0); PLATELET COUNT, AUTOMATED 149 10^3/uL (150-450); RED BLOOD COUNT 4.77 10^6/uL (4.30-6.10)
[2020-10-22 23:49] LABS: INR 2.12; PROTHROMBIN TIME 24.2 SECONDS (12.5-14.3)
[2020-10-22 23:50] LABS: PARTIAL THROMBOPLASTIN TIME 33.7 SECONDS (24.2-38.5)
[2020-10-23 00:04] LABS: ERYTHROCYTE SEDIMENTATION RATE 7 mm/hr (0-20)
[2020-10-23 00:13] LABS: ALBUMIN 3.8 GM/DL (3.2-5.2); ALT/SGPT 27 U/L (12-78); BILIRUBIN,DIRECT 0.1 MG/DL (0.0-0.2); BILIRUBIN,TOTAL 0.5 MG/DL (0.2-1.0); BLOOD UREA NITROGEN 15 MG/DL (7-18); C REACTIVE PROTEIN QUANTITATIV 1.04 MG/DL (0.00-0.30); CALCIUM LEVEL 9.2 MG/DL (8.8-10.2); CARBON DIOXIDE LEVEL 30 MEQ/L (21-32); CHLORIDE LEVEL 105 MEQ/L (98-107); CK-MB VALUE MASS 2.3 NG/ML (<3.6); CPK CREATINE PHOSPHOKINASE 223 U/L (39-308); CREATININE FOR GFR 0.93 MG/DL (0.70-1.30); FREE T4 1.08 NG/DL (0.76-1.46); GLOMERULAR FILTRATION RATE > 60.0 (>42); GLUCOSE, FASTING 127 MG/DL (70-100); LIPASE 71 U/L (73-393); MB/CK RELATIVE INDEX 1.03 (< OR =4); NT-PRO BNP 21 PG/ML (<125); POTASSIUM SERUM 4.1 MEQ/L (3.5-5.1); SODIUM LEVEL 139 MEQ/L (136-145); TOTAL PROTEIN 7.4 GM/DL (6.4-8.2); TROPONIN I < 0.02 NG/ML (< 0.10)
[2020-10-23] MEDS ORDERED: ISOVUE-370 76% 100ML VIAL As Ordered ONE (00:20)
--- NOTE | 2020-10-23 00:24 | REPVR ---
PROCEDURE INFORMATION: Exam: XR Chest Exam date and time: 10/22/2020 11:41 PM Age: 70 years old Clinical indication: Chest pain TECHNIQUE: Imaging protocol: XR of the chest. Views: 1 view. COMPARISON: PA Chest, 1 view 08/11/2019 8:34 PM FINDINGS: Lungs: Unremarkable. No consolidation. No pulmonary edema. Pleural spaces: Unremarkable. No pleural effusion. No pneumothorax. Heart/Mediastinum: Unremarkable. No cardiomegaly. Bones/joints: There is a chronic complete ileal fracture deformity of the midportion of the right clavicle that is unchanged compared to the prior chest x-ray on 08/11/2019. Other findings: There are surgical clips in the lower neck. IMPRESSION: No radiographic evidence for an acute cardiopulmonary process. Electronically signed by: Gabe Hart On 10/23/2020 00:23:43 AM
[2020-10-23] MEDS ORDERED: HYDROMORPHONE HCL 0.5 MG/ 0.5 ML SYRINGE (J1170 PER 1) IV ONE (00:35)
[2020-10-23] MEDS ORDERED: LORazepam 2 MG TAB PO PRN (01:05)
--- NOTE | 2020-10-23 01:21 | REPVR ---
PROCEDURE INFORMATION: Exam: CT Abdomen And Pelvis With Contrast Exam date and time: 10/23/2020 12:44 AM Age: 70 years old Clinical indication: Chest pain, possible abdominal source TECHNIQUE: Imaging protocol: Computed tomography of the abdomen and pelvis with contrast. Radiation optimization: All CT scans at this facility use at least one of these dose optimization techniques: automated exposure control; mA and/or kV adjustment per patient size (includes targeted exams where dose is matched to clinical indication); or iterative reconstruction. Contrast material: ISOVUE 370; Contrast volume: 100 ml; Contrast route: INTRAVENOUS (IV); COMPARISON: SR CT ABD/PEL W/IV CONTRAST ONLY 07/09/2018 8:43:44 AM FINDINGS: Lungs: For details regarding the lungs, refer to the CTA chest report on 10/23/2020. Heart: For details regarding the heart, refer to the CTA chest report on 10/23/2020. Liver: The attenuation of the liver is lower compared to the spleen, which can be seen with fatty liver infiltration. No liver lesion is seen. The contour of the liver is smooth. No hepatomegaly is noted. Gallbladder and bile ducts: The gallbladder is contracted. No calcified gallstones are seen. No dilation of the bile ducts is noted. No calcified stones are seen in the common bile duct. Pancreas: Normal. No dilation of the main pancreatic duct is noted. Spleen: Unremarkable. No splenomegaly is noted. Adrenal glands: Normal. No adrenal mass is noted. Kidneys and ureters: There is a 17 mm simple exophytic cyst arising from the posterior cortex of the lower pole of the left kidney, which is stable compared to the prior CT abdomen and pelvis on 07/09/2018 and for which further follow-up is not necessary. No solid renal mass is noted. The right kidney is unremarkable. No stones are noted in the kidneys or ureters. There is no hydronephrosis or hydroureter. There are no wedge-shaped areas of low attenuation in the kidneys to suggest pyelonephritis. There is no renal abscess or perinephric fluid collection. Stomach and bowel: The stomach and small bowel are unremarkable. There is mild sigmoid diverticulosis without evidence for diverticulitis. There is no evidence for a bowel obstruction, colitis, pneumatosis intestinalis, intussusception, volvulus, or perforated viscus. There is a large amount of formed stool in the cecum, ascending colon, and transverse colon. There is a mild amount of formed stool in the descending colon and sigmoid colon. A moderate amount of formed stool is present in the rectum. Appendix: Normal. There is no evidence for appendicitis. Intraperitoneal space: No free air. No ascites. No abscess. Retroperitoneal space: No fluid collection. No mass. Vasculature: The abdominal aorta is patent, normal in caliber, and there is no dissection. The iliac arteries, common femoral arteries, renal arteries, celiac artery, superior mesenteric artery, and inferior mesenteric artery are patent. There are mild atherosclerotic calcifications. Incidental note is made of small round calcifications in the pelvis, which are compatible with phleboliths. Lymph nodes: No enlarged lymph nodes. Urinary bladder: The partially distended urinary bladder is unremarkable. No stones or masses are seen in the bladder. Reproductive: The prostate gland and seminal vesicles have been. Bones/joints: There is no fracture or dislocation. No suspicious osteolytic or osteoblastic lesion. There are degenerative changes involving the lumbar spine and a slight dextroscoliosis of the lumbar spine. Soft tissues: Unremarkable. No soft tissue fluid collection. IMPRESSION: 1. No acute findings in the abdomen or pelvis. 2. Large amount of formed stool in the cecum, ascending colon, and transverse colon, a mild amount of formed stool in the descending colon and sigmoid colon, and a moderate amount of formed stool in the rectum. No bowel obstruction. 3. Mild sigmoid diverticulosis without evidence for diverticulitis. Electronically signed by: Gabe Hart On 10/23/2020 01:21:34 AM
--- NOTE | 2020-10-23 01:22 | REPVR ---
PROCEDURE INFORMATION: Exam: CTA Chest With Contrast Exam date and time: 10/22/2020 12:44 AM Age: 70 years old Clinical indication: Chest pain; Patient HX: PT complaining of pain in right shoulder area; Additional info: H/o pe, h/o thoracic aneurysm, chest pain TECHNIQUE: Imaging protocol: Computed tomographic angiography of the chest with contrast. 3D rendering (Not supervised by radiologist): MIP and/or 3D reconstructed images were created by the technologist. Radiation optimization: All CT scans at this facility use at least one of these dose optimization techniques: automated exposure control; mA and/or kV adjustment per patient size (includes targeted exams where dose is matched to clinical indication); or iterative reconstruction. Contrast material: ISOVUE 370; Contrast volume: 100 ml; Contrast route: INTRAVENOUS (IV); COMPARISON: CT ANGIO CHEST 09/23/2018 5:52 PM FINDINGS: Pulmonary arteries: No pulmonary embolism. Aorta: The thoracic aorta is intact and patent. There is no thoracic aortic aneurysm, pseudoaneurysm, penetrating atherosclerotic ulcer, intramural hematoma, or dissection. At the level of the pulmonary artery trunk, the ascending aorta measures 3.6 cm and the descending thoracic aorta measures 2.8 cm, which are within normal limits. Great vessels off aortic arch: The brachiocephalic artery, imaged proximal portions of the common carotid arteries, imaged proximal portions of the vertebral arteries, and subclavian arteries are intact. No stenosis or occlusion of these vessels is noted. Thyroid: There has been a thyroidectomy and surgical clips are noted in the thyroid bed. Trachea: Normal. Bronchial tree: Normal. Lungs: There is mild atelectasis in the right middle lobe and lingula. There is a 3 mm juxtapleural nodule along the left major fissure projecting into the superior segment of the left lower lobe (image 43 of the axial series 402), for which follow-up is not necessary. The lungs are otherwise clear. There is no lung consolidation or mass. No emphysematous changes or interstitial lung disease is noted. Pleural spaces: Normal. No pneumothorax or pleural effusion. Heart: No cardiomegaly. No pericardial effusion. The ratio of the diameter of the right ventricle to the diameter of the left ventricle measures less than 1, which is within normal limits and there is no evidence for a right ventricular strain. Mediastinal space: No mediastinal mass, fluid collection, or pneumomediastinum. Lymph nodes: Normal. No enlarged lymph nodes. Bones/joints: There is no acute fracture or dislocation. There is a chronic completely healed fracture deformity of the midportion of the right clavicle. No suspicious osteolytic or osteoblastic lesion. There are endplate spurs in the thoracic spine. Soft tissues: Unremarkable. No soft tissue fluid collection. Other findings: For details regarding the abdominal and pelvic findings, refer to the CT abdomen and pelvis report on 10/23/2020. IMPRESSION: 1. No acute findings in the chest. No pulmonary embolism. 2. No thoracic aortic aneurysm, pseudoaneurysm, intramural hematoma, penetrating atherosclerotic ulcer, or dissection. Electronically signed by: Gabe Hart On 10/23/2020 01:21:58 AM
[2020-10-23] MEDS ORDERED: PERCOCET 5MG/325MG TAB PO ONE (02:05)
[2020-10-23 03:49] LABS: CK-MB VALUE MASS 1.8 NG/ML (<3.6); CPK CREATINE PHOSPHOKINASE 169 U/L (39-308); MB/CK RELATIVE INDEX 1.07 (< OR =4); TROPONIN I < 0.02 NG/ML (< 0.10)
[2020-10-23] MEDS ORDERED: PERC5TAB12 PO (04:07)
[2020-10-23] MEDS ORDERED: OXYCODONE/APAP 5MG/325MG(BULK FOR ED) 1 TABLET PO ONE (04:10)
[2020-10-23 04:16] VITALS: BP 145/88
--- NOTE | 2020-10-23 20:22 | ECGEPIP ---
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
== END 2020-10-23 04:28 | disposition home or self-care (01) ==
LOC: M ED 22:42
DX: R07.89 Other chest pain (principal); M25.511 Pain in right shoulder; M25.512 Pain in left shoulder; J45.909 Unspecified asthma, uncomplicated; G47.33 Obstructive sleep apnea (adult) (pediatric); M79.7 Fibromyalgia; Z85.46 Personal history of malignant neoplasm of prostate; Z86.711 Personal history of pulmonary embolism; Z86.718 Personal history of other venous thrombosis and embolism; Z79.899 Other long term (current) drug therapy; Z79.890 Hormone replacement therapy; Z79.01 Long term (current) use of anticoagulants; Z88.0 Allergy status to penicillin; Z88.1 Allergy status to other antibiotic agents; Z88.8 Allergy status to other drugs, medicaments and biological substances; Z91.018 Allergy to other foods; Z91.040 Latex allergy status
CPT/HCPCS: 71045; 71275; 74177; 80048; 80076; 82550; 82553; 83690; 83880; 84439; 84443; 84484; 85025; 85610; 85652; 85730; 86140; 93005; 93041; 94760; 96374; 99285; J1170; Q9967

== ENCOUNTER 2021-01-26 11:53 | Emergency (ER) | payer MEDICARE, OTHER ==
[~2021-01-26] VITALS: Ht 182.9 cm; Wt 86.4 kg
[~2021-01-26 11:53] MED LIST changes: +PERC5TAB12 PO
[2021-01-26] MEDS ORDERED: DULE200A INH (12:01)
[2021-01-26] MEDS ORDERED: ALBU8.5H (12:26)
[2021-01-26] MEDS ORDERED: SYNT100T (12:26)
[2021-01-26 12:34] LABS: BASO % 0.7 % (0.0-1.0); EOS # 0.1 10^3/uL (0.0-0.5); EOS % 2.2 % (0.0-3.0); HEMOGLOBIN 14.2 g/dl (13.5-17.5); LYMPH # 1.1 10^3/uL (1.5-5.0); LYMPH % 17.9 % (24.0-44.0); MEAN CORPUSCULAR HEMOGLOBIN 32.4 pg (27.0-33.0); MEAN CORPUSCULAR HGB CONC 33.8 g/dl (32.0-36.5); MEAN CORPUSCULAR VOLUME 95.9 fl (80.0-96.0); MONO # 0.9 10^3/uL (0.0-0.8); MONO % 15.2 % (2.0-8.0); NEUTROPHILS # 3.8 10^3/uL (1.5-8.5); NEUTROPHILS % 63.7 % (36.0-66.0); PLATELET COUNT, AUTOMATED 154 10^3/uL (150-450); RED BLOOD COUNT 4.38 10^6/uL (4.30-6.10)
--- NOTE | 2021-01-26 12:42 | REP ---
INDICATION: DYSPNEA/COUGH. COMPARISON: Portable chest dated 10/22/2020. TECHNIQUE: Portable AP chest with the patient upright. FINDINGS: The lung moore are clear. Cardiac size is normal. The larry, mediastinum and skeletal structures are unremarkable except for old healed right clavicle fracture. There is no interval change. IMPRESSION: Essentially portable chest <Electronically signed by Carson Lee > 01/26/21 [id number]
[2021-01-26 13:09] LABS: ALBUMIN 3.5 GM/DL (3.2-5.2); ALT/SGPT 27 U/L (12-78); BILIRUBIN,DIRECT 0.1 MG/DL (0.0-0.2); BILIRUBIN,TOTAL 0.4 MG/DL (0.2-1.0); BLOOD UREA NITROGEN 11 MG/DL (7-18); CALCIUM LEVEL 8.1 MG/DL (8.8-10.2); CARBON DIOXIDE LEVEL 28 MEQ/L (21-32); CHLORIDE LEVEL 110 MEQ/L (98-107); CK-MB VALUE MASS 5.5 NG/ML (<3.6); CPK CREATINE PHOSPHOKINASE 298 U/L (39-308); GLOMERULAR FILTRATION RATE > 60.0 (>42); GLUCOSE, FASTING 57 MG/DL (70-100); MB/CK RELATIVE INDEX 1.85 (< OR =4); POTASSIUM SERUM 3.9 MEQ/L (3.5-5.1); SODIUM LEVEL 143 MEQ/L (136-145); TOTAL PROTEIN 6.8 GM/DL (6.4-8.2); TROPONIN I < 0.02 NG/ML (< 0.10)
[2021-01-26] MEDS ORDERED: ALBUTEROL SULFATE 2.5 MG/0.5 ML INH NEB SOLN INH ONE (14:40)
[2021-01-26] MEDS ORDERED: methylPREDNISolone 125MG 2ML VIAL IV ONE (14:40)
[2021-01-26] MEDS ORDERED: IPRATROPIUM 0.5MG/ALBUTEROL 2.5MG INH SOL UD 3ML (DUONEB) NEB ONE (14:40)
[2021-01-26] MEDS ORDERED: ISOVUE-370 76% 100ML VIAL As Ordered ONE (14:48)
[2021-01-26 15:20] LABS: NT-PRO BNP 41 PG/ML (<125)
--- NOTE | 2021-01-26 16:04 | REP ---
INDICATION: sob. COMPARISON: Chest CT with IV contrast dated 10/23/2020. TECHNIQUE: Chest CT with IV contrast, pulmonary artery CT angiography protocol. FINDINGS: There are no emboli in the pulmonary trunk or central pulmonary arteries. There are no pulmonary artery lobe or segment branch emboli. There are no infiltrates or pleural effusions. There is a 3 mm calcified granuloma adjacent to the left major fissure superiorly on image 40, unchanged from the prior study. There are no other lung masses or nodules. The thoracic aorta is unremarkable. Cardiac size is normal. There is no pericardial effusion. The visualized upper abdominal contents are unremarkable. There is an old healed right clavicle fracture, unchanged. There are surgical clips in the thyroid bed compatible with thyroidectomy, unchanged. IMPRESSION: There are no pulmonary emboli. There are no infiltrates or effusions. There are no nodules or masses except for a 3 mm calcified granuloma on the left as described. There are surgical clips in the thyroid bed compatible with thyroidectomy, unchanged. <Electronically signed by Carson Lee > 01/26/21 1600
[2021-01-26 16:31] VITALS: BP 181/82
[2021-01-26] MEDS ORDERED: PRED20TA PO (16:33)
--- NOTE | 2021-01-26 20:28 | ECGEPIP ---
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
== END 2021-01-26 16:45 | disposition home or self-care (01) ==
LOC: M ED 11:53
DX: J45.901 Unspecified asthma with (acute) exacerbation (principal); I10 Essential (primary) hypertension; Z88.0 Allergy status to penicillin; Z88.1 Allergy status to other antibiotic agents; Z88.8 Allergy status to other drugs, medicaments and biological substances; Z91.018 Allergy to other foods; Z91.040 Latex allergy status; Z79.899 Other long term (current) drug therapy; Z79.890 Hormone replacement therapy
CPT/HCPCS: 71045; 71275; 80048; 80076; 82550; 82553; 83880; 84484; 85025; 87798; 93005; 93041; 94640; 94760; 96374; 99285; J2930; Q9967

== ENCOUNTER → 2021-02-06 | Outpatient (CLI) | payer MEDICARE, OTHER ==
[~2021-02-06] MED LIST changes: +ALBU8.5H; +PRED20TA PO; +SYNT100T
== END ==
LOC: M LAB 07:00
PROVIDERS: ATTEND Urology
DX: C61 Malignant neoplasm of prostate (principal)

== ENCOUNTER → 2021-04-03 | Outpatient (CLI) | payer MEDICARE, OTHER ==
[2021-04-03 08:49] LABS: FREE T4 0.97 NG/DL (0.76-1.46); THYROID STIMULATING HORMONE 0.765 uIU/ML (0.358-3.740)
== END ==
LOC: M LAB 07:19
PROVIDERS: ATTEND Internal Medicine Endocrinology, Diabetes & Metabolism
DX: E31.22 Multiple endocrine neoplasia [MEN] type IIA (principal); E03.9 Hypothyroidism, unspecified

== ENCOUNTER → 2021-08-04 | Outpatient (CLI) | payer MEDICARE, OTHER ==
[~2021-08-04] MED LIST changes: -LISI-898 PO; +LISI5TAB11 PO; +LOSA25TA13 PO; -LOSA25TA14 PO
== END ==
LOC: M LAB 07:33
PROVIDERS: ATTEND Urology
DX: C61 Malignant neoplasm of prostate (principal)

== ENCOUNTER → 2021-08-12 | Outpatient (REF) | payer MEDICARE, OTHER ==
[~2021-08-12] MED LIST changes: -D31000TA2 PO; +VITA100093 PO
[2021-08-12 13:43] LABS: APPEARANCE, URINE HAZY (CLEAR); BACTERIA, URINE AUTO NEGATIVE (NEGATIVE); BILIRUBIN, URINE AUTO NEGATIVE (NEGATIVE); BLOOD, URINE BLOOD NEGATIVE (NEGATIVE); COLOR, URINE YELLOW (YELLOW); GLUCOSE, URINE (UA) AUTO NEGATIVE (NEGATIVE); KETONE, URINE AUTO NEGATIVE (NEGATIVE); LEUKOCYTE ESTERASE, URINE AUTO NEGATIVE (NEGATIVE); NITRITE, URINE AUTO NEGATIVE (NEGATIVE); PROTEIN, URINE AUTO NEGATIVE (NEGATIVE); RBC, URINE AUTO 1 /HPF (0-3); SPECIFIC GRAVITY URINE AUTO 1.006 (1.002-1.035); SQUAMOUS EPITHELIAL CELL UR AU 0 /HPF (0-6); UROBILINOGEN, URINE AUTO 0.2 mg/dL (0.0-2.0); WBC, URINE AUTO 0 /HPF (0-3)
== END ==
LOC: M SMT 12:51
PROVIDERS: ATTEND Urology
DX: R30.0 Dysuria (principal)

== ENCOUNTER → 2021-08-27 | Outpatient (REF) | payer MEDICARE, OTHER ==
[2021-08-27 17:26] LABS: APPEARANCE, URINE HAZY (CLEAR); BACTERIA, URINE AUTO NEGATIVE (NEGATIVE); BILIRUBIN, URINE AUTO NEGATIVE (NEGATIVE); BLOOD, URINE BLOOD NEGATIVE (NEGATIVE); COLOR, URINE YELLOW (YELLOW); GLUCOSE, URINE (UA) AUTO NEGATIVE (NEGATIVE); KETONE, URINE AUTO NEGATIVE (NEGATIVE); LEUKOCYTE ESTERASE, URINE AUTO NEGATIVE (NEGATIVE); NITRITE, URINE AUTO NEGATIVE (NEGATIVE); PROTEIN, URINE AUTO NEGATIVE (NEGATIVE); RBC, URINE AUTO 0 /HPF (0-3); SPECIFIC GRAVITY URINE AUTO 1.006 (1.002-1.035); SQUAMOUS EPITHELIAL CELL UR AU 0 /HPF (0-6); UROBILINOGEN, URINE AUTO 0.2 mg/dL (0.0-2.0); WBC, URINE AUTO 0 /HPF (0-3)
== END ==
LOC: M SMT 16:37
PROVIDERS: ATTEND Urology
DX: R30.0 Dysuria (principal)

== ENCOUNTER → 2021-09-04 | Outpatient (CLI) | payer MEDICARE, OTHER ==
[2021-09-04 08:35] LABS: CREATININE FOR GFR 0.86 MG/DL (0.70-1.30); GLOMERULAR FILTRATION RATE > 60.0 (>42)
== END ==
LOC: M LAB 07:17
PROVIDERS: ATTEND Otolaryngology
DX: C73 Malignant neoplasm of thyroid gland (principal)

== ENCOUNTER → 2021-09-04 | Outpatient (CLI) | payer MEDICARE, OTHER ==
[2021-09-04 08:45] LABS: FREE T4 1.16 NG/DL (0.76-1.46); THYROID STIMULATING HORMONE 0.242 uIU/ML (0.358-3.740)
== END ==
LOC: M LAB 07:14
PROVIDERS: ATTEND Internal Medicine Endocrinology, Diabetes & Metabolism
DX: E03.9 Hypothyroidism, unspecified (principal); C73 Malignant neoplasm of thyroid gland

== ENCOUNTER 2021-10-06 08:59 | Emergency (ER) | payer MEDICARE, OTHER ==
[~2021-10-06] VITALS: Ht 182.9 cm; Wt 93.6 kg
[2021-10-06 09:00] VITALS: BP 183/97
== END 2021-10-06 10:18 | disposition left against medical advice (07) ==
LOC: M ED 08:59
DX: Z53.21 Procedure and treatment not carried out due to patient leaving prior to being seen by health care provider (principal)

== ENCOUNTER → 2021-10-16 | Outpatient (CLI) | payer MEDICARE, OTHER ==
[~2021-10-16] MED LIST changes: +ADV250INH INH; +CYAN500T14 PO; +GARL500C2 PO; +SYNT100T PO; +WARF-18 PO
== END ==
LOC: M LABSMTC 11:08
PROVIDERS: ATTEND Anesthesiology
DX: Z01.818 Encounter for other preprocedural examination (principal); Z11.52 Encounter for screening for COVID-19

== ENCOUNTER → 2021-10-20 | Outpatient (CLI) | payer MEDICARE, OTHER ==
[2021-10-20 08:41] LABS: THYROID STIMULATING HORMONE 0.397 uIU/ML (0.358-3.740)
== END ==
LOC: M LAB 07:01
PROVIDERS: ATTEND Internal Medicine Endocrinology, Diabetes & Metabolism
DX: E03.9 Hypothyroidism, unspecified (principal)

== ENCOUNTER 2021-10-21 11:45 | Day surgery (SDC) | payer MEDICARE, OTHER ==
[~2021-10-21] VITALS: Ht 182.9 cm; Wt 86.2 kg
[~2021-10-21 11:45] MED LIST changes: +NS 1,000 ML IV ONE
[2021-10-21] MEDS ORDERED: fentaNYL 100 MCG/2 ML INJECTION As Ordered ONE (13:40)
[2021-10-21] MEDS ORDERED: LIDOCAINE 2% 100MG/5ML SDV (FOR ANES.) As Ordered ONE (15:21)
[2021-10-21] MEDS ORDERED: propofoL 200 MG/20 ML VIAL As Ordered ONE (15:21)
[2021-10-21 16:03] VITALS: BP 139/78
== END 2021-10-21 16:09 | disposition home or self-care (01) ==
LOC: M OPP 11:45
PROVIDERS: ATTEND Internal Medicine Gastroenterology
DX: D12.6 Benign neoplasm of colon, unspecified (principal); K64.0 First degree hemorrhoids; Z86.010 Personal history of colon polyps; Z80.0 Family history of malignant neoplasm of digestive organs; K31.89 Other diseases of stomach and duodenum; K29.70 Gastritis, unspecified, without bleeding; R12 Heartburn; Z85.850 Personal history of malignant neoplasm of thyroid; Z85.46 Personal history of malignant neoplasm of prostate; Z86.711 Personal history of pulmonary embolism; Z86.718 Personal history of other venous thrombosis and embolism; Z79.02 Long term (current) use of antithrombotics/antiplatelets; Z79.899 Other long term (current) drug therapy; Z88.0 Allergy status to penicillin; Z88.1 Allergy status to other antibiotic agents; Z88.8 Allergy status to other drugs, medicaments and biological substances; Z91.013 Allergy to seafood; Z91.018 Allergy to other foods; Z91.040 Latex allergy status
CPT/HCPCS: 43239; 45385; 88305; J3010

== ENCOUNTER → 2021-12-24 | Outpatient (CLI) | payer MEDICARE, OTHER ==
[~2021-12-24] MED LIST changes: -NS 1,000 ML IV ONE
[2021-12-24 09:30] LABS: FREE T4 0.86 NG/DL (0.76-1.46); THYROID STIMULATING HORMONE 2.87 uIU/ML (0.358-3.740)
== END ==
LOC: M LAB 07:23
PROVIDERS: ATTEND Internal Medicine Endocrinology, Diabetes & Metabolism
DX: E03.9 Hypothyroidism, unspecified (principal)

== ENCOUNTER → 2022-01-07 | Outpatient (CLI) | payer MEDICARE, OTHER ==
[~2022-01-07] MED LIST changes: +ISOVUE-370 76% 100ML VIAL As Ordered ONE
== END ==
LOC: M RAD 09:13
PROVIDERS: ATTEND Internal Medicine
DX: R91.8 Other nonspecific abnormal finding of lung field (principal); R06.00 Dyspnea, unspecified
CPT/HCPCS: 71275; Q9967

== ENCOUNTER → 2022-01-30 | Outpatient (CLI) | payer MEDICARE, OTHER ==
[~2022-01-30] MED LIST changes: -ASMA220A IN; -ISOVUE-370 76% 100ML VIAL As Ordered ONE; +LEVO1TAB40; -LEVO750T13; +MOME220A IN
== END ==
LOC: M RAD 15:52
PROVIDERS: ATTEND Nurse Practitioner Adult Health
DX: R51.9 Headache, unspecified (principal)

== ENCOUNTER → 2022-02-06 | Outpatient (CLI) | payer MEDICARE, OTHER | LOC: M LAB 06:57 | PROVIDERS: ATTEND Internal Medicine | DX: E31.20 Multiple endocrine neoplasia [MEN] syndrome, unspecified (principal); Z86.718 Personal history of other venous thrombosis and embolism ==

== ENCOUNTER → 2022-02-06 | Outpatient (CLI) | payer MEDICARE, OTHER | LOC: M LAB 06:54 | PROVIDERS: ATTEND Urology | DX: C61 Malignant neoplasm of prostate (principal) ==

== ENCOUNTER → 2022-02-24 | Outpatient (REF) | payer MEDICARE, OTHER ==
[~2022-02-24] MED LIST changes: -DULE200A INH; +MOME13HF7 INH
[2022-02-24 14:00] LABS: APPEARANCE, URINE MANUAL HAZY (CLEAR); COLOR, URINE MANUAL YELLOW (YELLOW); PH,URINE MAN 5.5 UNITS (5.0 - 7.0); SPECIFIC GRAVITY,URINE MANUAL 1.009 (1.002-1.035)
[2022-02-24 14:01] LABS: BILIRUBIN, URINE MANUAL NEGATIVE (NEGATIVE); BLOOD URINE MANUAL POSITIVE (NEGATIVE); GLUCOSE, URINE (UA) MANUAL NEGATIVE (NEGATIVE); KETONE, URINE MANUAL NEGATIVE (NEGATIVE); LEUKOCYTE ESTERASE, URINE MAN NEGATIVE (NEGATIVE); NITRITE, URINE MANUAL NEGATIVE (NEGATIVE); PROTEIN, URINE MANUAL TRACE mg/dL (NEGATIVE); UROBILINOGEN, URINE MANUAL NORMAL (NORMAL)
[2022-02-24 14:28] LABS: RBC, URINE 20-30 /hpf (0-3); SQUAMOUS EPITHELIAL CELL URINE SMALL AMOUNT /hpf (SMALL AMT); WBC, URINE NONE SEEN /hpf (0-3)
[2022-02-24 14:29] LABS: BACTERIA, URINE NONE SEEN; HYALINE CAST, URINE NONE SEEN /lpf (0-1)
== END ==
LOC: M SMT 13:18
PROVIDERS: ATTEND Urology
DX: R30.0 Dysuria (principal)

== ENCOUNTER → 2022-02-25 | Outpatient (CLI) | payer MEDICARE, OTHER ==
[2022-02-25 08:59] LABS: FREE T4 1.02 NG/DL (0.76-1.46); THYROID STIMULATING HORMONE 1.95 uIU/ML (0.358-3.740)
== END ==
LOC: M PLALAB 07:16 → M LAB 07:43
PROVIDERS: ATTEND Internal Medicine Endocrinology, Diabetes & Metabolism
DX: E03.9 Hypothyroidism, unspecified (principal)

== ENCOUNTER → 2022-03-16 | Outpatient (CLI) | payer MEDICARE, OTHER ==
[~2022-03-16] MED LIST changes: +SYNT88TA2 PO
== END ==
LOC: M LABSMTC 11:11
PROVIDERS: ATTEND Anesthesiology
DX: Z01.818 Encounter for other preprocedural examination (principal); Z11.52 Encounter for screening for COVID-19

== ENCOUNTER 2022-03-20 07:45 | Day surgery (SDC) | payer MEDICARE, OTHER ==
[~2022-03-20] VITALS: Ht 182.9 cm; Wt 89.8 kg
[~2022-03-20 07:45] MED LIST changes: +NS 1,000 ML IV ONE
[2022-03-20] MEDS ORDERED: propofoL 200 MG/20 ML VIAL As Ordered ONE ×2 (08:55→09:34)
[2022-03-20 10:05] VITALS: BP 166/61
== END 2022-03-20 10:18 | disposition home or self-care (01) ==
LOC: M OPP 07:45
PROVIDERS: ATTEND Internal Medicine Gastroenterology
DX: D12.0 Benign neoplasm of cecum (principal); D12.2 Benign neoplasm of ascending colon; D12.3 Benign neoplasm of transverse colon; D12.4 Benign neoplasm of descending colon; K64.4 Residual hemorrhoidal skin tags; K64.8 Other hemorrhoids; K57.30 Diverticulosis of large intestine without perforation or abscess without bleeding; Z86.010 Personal history of colon polyps; Z09 Encounter for follow-up examination after completed treatment for conditions other than malignant neoplasm; Z88.1 Allergy status to other antibiotic agents; Z88.6 Allergy status to analgesic agent; Z91.018 Allergy to other foods; Z91.013 Allergy to seafood; Z91.040 Latex allergy status; Z79.01 Long term (current) use of anticoagulants; Z79.899 Other long term (current) drug therapy; J45.909 Unspecified asthma, uncomplicated; G47.30 Sleep apnea, unspecified; Z87.442 Personal history of urinary calculi; Z85.46 Personal history of malignant neoplasm of prostate; Z85.850 Personal history of malignant neoplasm of thyroid; Z86.711 Personal history of pulmonary embolism

== ENCOUNTER → 2022-04-29 | Outpatient (CLI) | payer MEDICARE, OTHER ==
[~2022-04-29] MED LIST changes: -NS 1,000 ML IV ONE
== END ==
LOC: M RAD 07:00
PROVIDERS: ATTEND Nurse Practitioner Adult Health
DX: M25.551 Pain in right hip (principal); M25.541 Pain in joints of right hand

== ENCOUNTER 2022-05-03 15:17 | Emergency (ER) | payer MEDICARE, OTHER ==
[~2022-05-03] VITALS: Ht 182.9 cm; Wt 90.9 kg
[2022-05-03 15:48] LABS: BASO % 0.5 % (0.0-1.0); EOS # 0.1 10^3/uL (0.0-0.5); EOS % 1.7 % (0.0-3.0); HEMATOCRIT 45.2 % (42.0-52.0); HEMOGLOBIN 15.7 g/dl (13.5-17.5); LYMPH # 0.7 10^3/uL (1.5-5.0); MEAN CORPUSCULAR HEMOGLOBIN 32.7 pg (27.0-33.0); MEAN CORPUSCULAR HGB CONC 34.7 g/dl (32.0-36.5); MEAN CORPUSCULAR VOLUME 94.2 fl (80.0-96.0); MONO # 0.7 10^3/uL (0.0-0.8); MONO % 10.9 % (2.0-8.0); NEUTROPHILS # 4.5 10^3/uL (1.5-8.5); NEUTROPHILS % 74.7 % (36.0-66.0); PLATELET COUNT, AUTOMATED 128 10^3/uL (150-450)
[2022-05-03 15:59] LABS: INR 2.46; PROTHROMBIN TIME 27.1 SECONDS (12.5-14.5)
[2022-05-03 16:22] LABS: ALBUMIN 3.5 GM/DL (3.2-5.2); ALT/SGPT 24 U/L (12-78); BILIRUBIN,DIRECT 0.2 MG/DL (0.0-0.2); BILIRUBIN,TOTAL 0.8 MG/DL (0.2-1.0); BLOOD UREA NITROGEN 14 MG/DL (7-18); CARBON DIOXIDE LEVEL 29 MEQ/L (21-32); CHLORIDE LEVEL 107 MEQ/L (98-107); GLOMERULAR FILTRATION RATE > 60.0 (>42); GLUCOSE, FASTING 103 MG/DL (70-100); LIPASE 73 U/L (73-393); POTASSIUM SERUM 3.8 MEQ/L (3.5-5.1); SODIUM LEVEL 141 MEQ/L (136-145); TOTAL PROTEIN 6.6 GM/DL (6.4-8.2)
[2022-05-03] MEDS ORDERED: ISOVUE-370 76% 100ML VIAL As Ordered ONE (16:47)
[2022-05-03] MEDS ORDERED: DICY1CAP8 PO (18:42)
[2022-05-03] MEDS ORDERED: DICYCLOMINE 10 MG CAP PO ONE (19:05)
[2022-05-03 19:08] VITALS: BP 152/72
== END 2022-05-03 19:12 | disposition home or self-care (01) ==
LOC: M ED 15:17
DX: R10.30 Lower abdominal pain, unspecified (principal); R19.7 Diarrhea, unspecified; K66.8 Other specified disorders of peritoneum; Z90.79 Acquired absence of other genital organ(s); Z87.442 Personal history of urinary calculi; J45.909 Unspecified asthma, uncomplicated; Z85.46 Personal history of malignant neoplasm of prostate; Z85.850 Personal history of malignant neoplasm of thyroid; Z88.0 Allergy status to penicillin; Z88.1 Allergy status to other antibiotic agents; Z88.8 Allergy status to other drugs, medicaments and biological substances; Z88.6 Allergy status to analgesic agent; Z91.013 Allergy to seafood; Z91.018 Allergy to other foods; Z79.899 Other long term (current) drug therapy; Z79.890 Hormone replacement therapy
CPT/HCPCS: 36415; 74177; 80048; 80076; 83690; 85025; 85610; 99284; Q9967

== ENCOUNTER → 2022-05-04 | Outpatient (REF) | payer MEDICARE, OTHER ==
[~2022-05-04] MED LIST changes: +DICY1CAP8 PO
== END ==
LOC: M LAB REF 11:07
PROVIDERS: ATTEND Emergency Medicine
DX: R19.7 Diarrhea, unspecified (principal); R10.819 Abdominal tenderness, unspecified site

== ENCOUNTER → 2022-05-21 | Outpatient (REF) | payer MEDICARE, OTHER ==
[2022-05-21 10:33] LABS: INR 4.1; PROTHROMBIN TIME 40.4 SECONDS (12.5-14.5)
== END ==
LOC: M LAB REF 10:05
PROVIDERS: ATTEND Internal Medicine
DX: Z79.01 Long term (current) use of anticoagulants (principal)

== ENCOUNTER 2022-06-06 09:39 | Emergency (ER) | payer MEDICARE, OTHER ==
[~2022-06-06] VITALS: Ht 182.9 cm; Wt 89.5 kg
[2022-06-06 12:24] LABS: BASO # 0.1 10^3/uL (0.0-0.2); EOS # 0.2 10^3/uL (0.0-0.5); EOS % 2.7 % (0.0-3.0); HEMATOCRIT 44.5 % (42.0-52.0); HEMOGLOBIN 15.6 g/dl (13.5-17.5); LYMPH # 1.8 10^3/uL (1.5-5.0); LYMPH % 28.1 % (24.0-44.0); MEAN CORPUSCULAR HEMOGLOBIN 33.3 pg (27.0-33.0); MEAN CORPUSCULAR HGB CONC 35.1 g/dl (32.0-36.5); MEAN CORPUSCULAR VOLUME 94.9 fl (80.0-96.0); MONO # 0.9 10^3/uL (0.0-0.8); MONO % 14.9 % (2.0-8.0); NEUTROPHILS # 3.3 10^3/uL (1.5-8.5); NEUTROPHILS % 52.8 % (36.0-66.0); PLATELET COUNT, AUTOMATED 140 10^3/uL (150-450); RED BLOOD COUNT 4.69 10^6/uL (4.30-6.10); WHITE BLOOD COUNT 6.3 10^3/uL (4.0-10.0)
[2022-06-06 12:33] LABS: INR 2.14; PROTHROMBIN TIME 24.3 SECONDS (12.5-14.5)
[2022-06-06 12:34] LABS: PARTIAL THROMBOPLASTIN TIME 33.9 SECONDS (24.8-34.2)
[2022-06-06 13:00] LABS: BLOOD UREA NITROGEN 13 MG/DL (9-23); CALCIUM LEVEL 8.9 MG/DL (8.3-10.6); CARBON DIOXIDE LEVEL 25 MMOL/L (20-31); CHLORIDE LEVEL 106 MMOL/L (98-107); CREATININE FOR GFR 0.72 MG/DL (0.70-1.30); GLOMERULAR FILTRATION RATE > 60.0 (>42); GLUCOSE, FASTING 81 MG/DL (74-106); POTASSIUM SERUM 4.2 MMOL/L (3.5-5.1); SODIUM LEVEL 140 MMOL/L (136-145)
[2022-06-06 13:25] VITALS: BP 134/78
== END 2022-06-06 13:59 | disposition home or self-care (01) ==
LOC: M ED 09:39
DX: S60.222A Contusion of left hand, initial encounter (principal); R10.31 Right lower quadrant pain; X50.0XXA Overexertion from strenuous movement or load, initial encounter; Y93.H1 Activity, digging, shoveling and raking; I50.9 Heart failure, unspecified; J45.909 Unspecified asthma, uncomplicated; E78.5 Hyperlipidemia, unspecified; Z86.711 Personal history of pulmonary embolism; Z85.46 Personal history of malignant neoplasm of prostate; Z85.850 Personal history of malignant neoplasm of thyroid; M48.00 Spinal stenosis, site unspecified; Z88.1 Allergy status to other antibiotic agents; Z88.6 Allergy status to analgesic agent; Z88.0 Allergy status to penicillin; Z88.8 Allergy status to other drugs, medicaments and biological substances; Z91.040 Latex allergy status; Z91.013 Allergy to seafood; Z91.018 Allergy to other foods; Z79.890 Hormone replacement therapy; Z79.899 Other long term (current) drug therapy

== ENCOUNTER → 2022-07-01 | Outpatient (CLI) | payer MEDICARE, OTHER ==
[2022-07-01 08:38] LABS: FREE T4 1.01 NG/DL (0.89-1.76); THYROID STIMULATING HORMONE 4.113 uIU/ML (0.55-4.78)
== END ==
LOC: M LAB 07:05
PROVIDERS: ATTEND Internal Medicine Endocrinology, Diabetes & Metabolism
DX: E03.9 Hypothyroidism, unspecified (principal)

== ENCOUNTER → 2022-07-10 | Outpatient (REF) | payer MEDICARE, OTHER | LOC: M LAB REF 09:08 | PROVIDERS: ATTEND Internal Medicine | DX: R05.9 Cough, unspecified (principal) ==

== ENCOUNTER → 2022-07-30 | Outpatient (REF) | payer MEDICARE, OTHER | LOC: M LAB REF 10:08 | PROVIDERS: ATTEND Physician Assistant Medical | DX: J01.00 Acute maxillary sinusitis, unspecified (principal) ==

== ENCOUNTER → 2022-08-05 | Outpatient (CLI) | payer MEDICARE, OTHER | LOC: M LAB 07:27 | PROVIDERS: ATTEND Urology | DX: C61 Malignant neoplasm of prostate (principal) ==

== ENCOUNTER → 2022-08-17 | Outpatient (CLI) | payer MEDICARE, OTHER | LOC: M RAD 10:37 | PROVIDERS: ATTEND Otolaryngology | DX: J01.00 Acute maxillary sinusitis, unspecified (principal) ==

== ENCOUNTER → 2022-08-24 | Outpatient (CLI) | payer MEDICARE, OTHER ==
[2022-08-24 08:16] LABS: BLOOD UREA NITROGEN 11 MG/DL (9-23); CREATININE FOR GFR 0.79 MG/DL (0.70-1.30); GLOMERULAR FILTRATION RATE > 60.0 (>42)
== END ==
LOC: M LAB 07:13
PROVIDERS: ATTEND Orthopaedic Surgery
DX: M70.61 Trochanteric bursitis, right hip (principal); M48.061 Spinal stenosis, lumbar region without neurogenic claudication

== ENCOUNTER → 2022-09-02 | Outpatient (CLI) | payer MEDICARE, OTHER ==
[~2022-09-02] MED LIST changes: +PROHANCE 279.3MG/ML 15ML VIAL ONE; +PROHANCE 279.3MG/ML 5ML VIAL ONE
== END ==
LOC: M PLAIMG 09:07
PROVIDERS: ATTEND Orthopaedic Surgery
DX: M71.9 Bursopathy, unspecified (principal); M16.11 Unilateral primary osteoarthritis, right hip; M48.07 Spinal stenosis, lumbosacral region
CPT/HCPCS: 72158; 73723; A9576

== ENCOUNTER → 2022-09-07 | Outpatient (CLI) | payer MEDICARE, OTHER ==
[~2022-09-07] MED LIST changes: -PROHANCE 279.3MG/ML 15ML VIAL ONE; -PROHANCE 279.3MG/ML 5ML VIAL ONE
[2022-09-07 09:09] LABS: THYROID STIMULATING HORMONE 1.581 uIU/ML (0.55-4.78)
[2022-09-07 09:11] LABS: FREE T4 1.14 NG/DL (0.89-1.76)
== END ==
LOC: M LAB 07:09
PROVIDERS: ATTEND Internal Medicine Endocrinology, Diabetes & Metabolism
DX: E03.9 Hypothyroidism, unspecified (principal)

== ENCOUNTER → 2022-09-07 | Outpatient (CLI) | payer MEDICARE, OTHER ==
[2022-09-09 20:07] LABS: F012-IGE GREEN PEA <0.10 kU/L (Class 0); F023-IGE CRAB <0.10 kU/L (Class 0); F024-IGE SHRIMP <0.10 kU/L (Class 0); F080-IGE LOBSTER <0.10 kU/L (Class 0); F207-IGE CLAM <0.10 kU/L (Class 0); F309-IGE CHICK PEA <0.10 kU/L (Class 0)
== END ==
LOC: M LAB 07:12
PROVIDERS: ATTEND Allergy & Immunology Allergy
DX: T78.1XXA Other adverse food reactions, not elsewhere classified, initial encounter (principal); E03.9 Hypothyroidism, unspecified; Z91.09 Other allergy status, other than to drugs and biological substances

== ENCOUNTER → 2022-09-23 | Outpatient (CLI) | payer MEDICARE, OTHER | LOC: M WHC 09:38 | PROVIDERS: ATTEND Internal Medicine Endocrinology, Diabetes & Metabolism | DX: M81.0 Age-related osteoporosis without current pathological fracture (principal) ==

== ENCOUNTER → 2022-11-05 | Outpatient (CLI) | payer MEDICARE, OTHER | LOC: M LAB 07:26 | PROVIDERS: ATTEND Physical Medicine & Rehabilitation | DX: M51.36 Other intervertebral disc degeneration, lumbar region (principal) ==

== ENCOUNTER 2022-12-16 17:34 | Emergency (ER) | payer MEDICARE, OTHER ==
[~2022-12-16] VITALS: Ht 182.9 cm; Wt 88.1 kg
[~2022-12-16 17:34] MED LIST changes: -AMLO25TA PO; -B-12100010 PO; -CITRPOW2 PO; -NOXI1TAB PO; -VITA100065 PO; -XARE20TA PO
[2022-12-16 17:36] VITALS: TEMP 97.7
[2022-12-16 18:54] LABS: BASO # 0.1 10^3/uL (0.0-0.2); BASO % 0.9 % (0.0-1.0); EOS # 0.2 10^3/uL (0.0-0.5); EOS % 3.8 % (0.0-3.0); HEMOGLOBIN 15.1 g/dl (13.5-17.5); LYMPH # 1.6 10^3/uL (1.5-5.0); LYMPH % 28.2 % (24.0-44.0); MEAN CORPUSCULAR HEMOGLOBIN 34.7 pg (27.0-33.0); MEAN CORPUSCULAR VOLUME 96.6 fl (80.0-96.0); MONO # 0.7 10^3/uL (0.0-0.8); MONO % 12.2 % (2.0-8.0); NEUTROPHILS % 54.7 % (36.0-66.0); PLATELET COUNT, AUTOMATED 150 10^3/uL (150-450); RED BLOOD COUNT 4.35 10^6/uL (4.30-6.10); WHITE BLOOD COUNT 5.5 10^3/uL (4.0-10.0)
[2022-12-16 18:58] LABS: ERYTHROCYTE SEDIMENTATION RATE 6 mm/hr (0-20)
[2022-12-16 19:12] LABS: ALBUMIN 3.5 G/DL (3.2-5.2); ALKALINE PHOSPHATASE 64 U/L (46-116); ALT/SGPT 20 U/L (7.0-40); AST/SGOT 36 U/L (<34); BILIRUBIN,DIRECT 0.1 MG/DL (<0.4); BILIRUBIN,TOTAL 0.6 MG/DL (0.3-1.2); BLOOD UREA NITROGEN 15 MG/DL (9-23); CALCIUM LEVEL 9.4 MG/DL (8.3-10.6); CARBON DIOXIDE LEVEL 29 MMOL/L (20-31); CHLORIDE LEVEL 106 MMOL/L (98-107); GLOMERULAR FILTRATION RATE > 60.0 (>42); GLUCOSE, FASTING 91 MG/DL (74-106); POTASSIUM SERUM 3.9 MMOL/L (3.5-5.1); SODIUM LEVEL 139 MMOL/L (136-145); TOTAL PROTEIN 6.4 G/DL (5.7-8.2)
[2022-12-16 19:13] LABS: PROTHROMBIN TIME 13.4 SECONDS (12.5-14.5); THYROID STIMULATING HORMONE 1.482 uIU/ML (0.55-4.78)
[2022-12-16 19:14] LABS: VITAMIN B12 LEVEL 1009 PG/ML (211-911)
[2022-12-16 19:37] LABS: FOLATE 23.05 NG/ML (>5.4)
[2022-12-16 19:46] LABS: OSMOLALITY SERUM 295 MOSM/KG (280-301)
[2022-12-16] MEDS ORDERED: XARE20TA PO (21:12)
[2022-12-16] MEDS ORDERED: B-12100010 PO (21:13)
[2022-12-16] MEDS ORDERED: CITRPOW2 PO (21:14)
[2022-12-16] MEDS ORDERED: COLA100C5 PO (21:14)
[2022-12-16] MEDS ORDERED: VITA100065 PO (21:15)
[2022-12-16] MEDS ORDERED: NOXI1TAB PO (21:16)
[2022-12-16] MEDS ORDERED: amLODIPine 5 MG TAB PO ONE (21:20)
[2022-12-16 21:27] VITALS: BP 183/97
[2022-12-16 22:23] VITALS: O2SAT 94
[2022-12-16 22:30] VITALS: BP 162/98
[2022-12-16] MEDS ORDERED: AMLO25TA PO (22:44)
== END 2022-12-16 23:39 | disposition home or self-care (01) ==
LOC: M ED 17:34
DX: G31.84 Mild cognitive impairment of uncertain or unknown etiology (principal); R41.0 Disorientation, unspecified; J45.909 Unspecified asthma, uncomplicated; G47.30 Sleep apnea, unspecified; E89.0 Postprocedural hypothyroidism; Z85.850 Personal history of malignant neoplasm of thyroid; Z88.6 Allergy status to analgesic agent; Z88.8 Allergy status to other drugs, medicaments and biological substances; Z91.040 Latex allergy status; Z91.013 Allergy to seafood; Z91.018 Allergy to other foods; Z79.899 Other long term (current) drug therapy

== ENCOUNTER → 2022-12-16 | Outpatient (REF) | payer MEDICARE, OTHER ==
[~2022-12-16] MED LIST changes: +AMLO25TA PO; +B-12100010 PO; +CITRPOW2 PO; +NOXI1TAB PO; +VITA100065 PO; +XARE20TA PO
[2022-12-16 17:40] LABS: FOLATE > 24.0 NG/ML (>5.4); VITAMIN B12 LEVEL 1224 PG/ML (211-911)
== END ==
LOC: M LAB REF 16:17
PROVIDERS: ATTEND Nurse Practitioner Family
DX: R41.0 Disorientation, unspecified (principal)

== ENCOUNTER → 2022-12-31 | Outpatient (CLI) | payer MEDICARE, OTHER ==
[~2022-12-31] MED LIST changes: +AMLO25TA PO; +B-12100010 PO; +CITRPOW2 PO; +NOXI1TAB PO; +VITA100065 PO; +XARE20TA PO
== END ==
LOC: M RAD 10:45
PROVIDERS: ATTEND Internal Medicine
DX: M54.2 Cervicalgia (principal)

== ENCOUNTER → 2023-02-10 | Outpatient (CLI) | payer MEDICARE, OTHER | LOC: M LAB 07:18 | PROVIDERS: ATTEND Urology | DX: C61 Malignant neoplasm of prostate (principal) ==

== ENCOUNTER → 2023-03-04 | Outpatient (REF) | payer MEDICARE, OTHER | LOC: M LAB REF 16:33 | PROVIDERS: ATTEND Internal Medicine | DX: R41.0 Disorientation, unspecified (principal) ==

== ENCOUNTER → 2023-03-12 | Outpatient (CLI) | payer MEDICARE, OTHER | LOC: M RAD 14:33 | PROVIDERS: ATTEND Internal Medicine | DX: R42 Dizziness and giddiness (principal); R22.1 Localized swelling, mass and lump, neck ==

== ENCOUNTER → 2023-04-29 | Outpatient (CLI) | payer MEDICARE, OTHER | LOC: M LAB 07:14 | PROVIDERS: ATTEND Internal Medicine Endocrinology, Diabetes & Metabolism | DX: C73 Malignant neoplasm of thyroid gland (principal); E31.22 Multiple endocrine neoplasia [MEN] type IIA ==

== ENCOUNTER → 2023-05-11 | Outpatient (CLI) | payer MEDICARE, OTHER ==
[~2023-05-11] MED LIST changes: +METHACHOLINE KIT INH ONE
== END ==
LOC: M CARPUL 07:31
PROVIDERS: ATTEND Internal Medicine Pulmonary Disease
DX: J45.20 Mild intermittent asthma, uncomplicated (principal)
CPT/HCPCS: 94070; 95070; J7674

== ENCOUNTER → 2023-06-04 | Outpatient (CLI) | payer MEDICARE, OTHER ==
[~2023-06-04] MED LIST changes: -METHACHOLINE KIT INH ONE
== END ==
LOC: M LAB 07:11
PROVIDERS: ATTEND Internal Medicine Endocrinology, Diabetes & Metabolism
DX: E31.22 Multiple endocrine neoplasia [MEN] type IIA (principal)

== ENCOUNTER → 2023-07-30 | Outpatient (CLI) | payer MEDICARE, OTHER | LOC: M LAB 07:13 | PROVIDERS: ATTEND Internal Medicine Endocrinology, Diabetes & Metabolism | DX: E31.22 Multiple endocrine neoplasia [MEN] type IIA (principal) ==

== ENCOUNTER → 2023-09-17 | Outpatient (CLI) | payer MEDICARE, OTHER ==
[2023-09-17 08:51] LABS: FREE T4 1.26 NG/DL (0.89-1.76); THYROID STIMULATING HORMONE 0.635 uIU/ML (0.55-4.78)
[2023-09-17 08:53] LABS: CARCINOEMBRYONIC ANTIGEN < 2.0 NG/ML (<2.5)
== END ==
LOC: M PLALAB 07:13
PROVIDERS: ATTEND Internal Medicine Endocrinology, Diabetes & Metabolism
DX: E89.0 Postprocedural hypothyroidism (principal); C73 Malignant neoplasm of thyroid gland; Z86.002 Personal history of in-situ neoplasm of other and unspecified genital organs

== ENCOUNTER → 2023-10-01 | Outpatient (CLI) | payer MEDICARE, OTHER | LOC: M LAB 07:25 | PROVIDERS: ATTEND Internal Medicine Pulmonary Disease | DX: J45.30 Mild persistent asthma, uncomplicated (principal) ==

== ENCOUNTER 2023-10-05 18:29 | Emergency (ER) | payer MEDICARE, OTHER ==
[~2023-10-05] VITALS: Ht 182.9 cm; Wt 91.9 kg
[2023-10-05 18:29] VITALS: BP 182/88; TEMP 96; O2SAT 98
[2023-10-05] MEDS ORDERED: ELIQ2.5T (18:38)
[2023-10-05] MEDS ORDERED: RA M500C PO (18:44)
[2023-10-05] MEDS ORDERED: CO Q200C10 PO (18:44)
[2023-10-05] MEDS ORDERED: CALC-190 PO (18:44)
== END 2023-10-05 21:50 | disposition left against medical advice (07) ==
LOC: M ED 18:29
DX: Z53.21 Procedure and treatment not carried out due to patient leaving prior to being seen by health care provider (principal)

== ENCOUNTER → 2023-10-06 | Outpatient (CLI) | payer MEDICARE, OTHER ==
[~2023-10-06] MED LIST changes: +CALC-190 PO; +CO Q200C10 PO; +ELIQ2.5T; +RA M500C PO
== END ==
LOC: M RADPRO 13:08
PROVIDERS: ATTEND Internal Medicine Pulmonary Disease
DX: R06.00 Dyspnea, unspecified (principal)

== ENCOUNTER 2023-10-09 03:00 | Emergency (ER) | payer MEDICARE, OTHER ==
[~2023-10-09] VITALS: Ht 182.9 cm; Wt 90.5 kg
[2023-10-09 04:22] LABS: BASO # 0.1 10^3/uL (0.0-0.2); BASO % 1.3 % (0.0-1.0); EOS # 0.3 10^3/uL (0.0-0.5); EOS % 4.9 % (0.0-3.0); HEMATOCRIT 42.7 % (42.0-52.0); HEMOGLOBIN 15.5 g/dl (13.5-17.5); LYMPH # 1.5 10^3/uL (1.5-5.0); LYMPH % 24.7 % (24.0-44.0); MEAN CORPUSCULAR HEMOGLOBIN 34.3 pg (27.0-33.0); MEAN CORPUSCULAR HGB CONC 36.3 g/dl (32.0-36.5); MEAN CORPUSCULAR VOLUME 94.5 fl (80.0-96.0); MONO # 0.8 10^3/uL (0.0-0.8); MONO % 13.4 % (2.0-8.0); NEUTROPHILS # 3.3 10^3/uL (1.5-8.5); NEUTROPHILS % 55.2 % (36.0-66.0); PLATELET COUNT, AUTOMATED 138 10^3/uL (150-450); RED BLOOD COUNT 4.52 10^6/uL (4.30-6.10)
[2023-10-09 04:25] LABS: ALBUMIN 3.5 G/DL (3.2-5.2); BILIRUBIN,DIRECT 0.2 MG/DL (<0.4); BILIRUBIN,TOTAL 0.7 MG/DL (0.3-1.2); TOTAL PROTEIN 6.6 G/DL (5.7-8.2)
[2023-10-09] MEDS: LEVOTHYROXINE 100MCG TABLET (0.1MG) PO ONE (06:58)
[2023-10-09] MEDS: MAGNESIUM CITRATE 300ML BTL PO ONE (09:03)
[2023-10-09 09:09] VITALS: BP 161/92; TEMP 96.2; O2SAT 97
== END 2023-10-09 09:13 | disposition home or self-care (01) ==
LOC: M ED 03:00
DX: K59.00 Constipation, unspecified (principal); Z88.8 Allergy status to other drugs, medicaments and biological substances; Z91.040 Latex allergy status; Z91.013 Allergy to seafood; Z91.018 Allergy to other foods; Z79.899 Other long term (current) drug therapy

== ENCOUNTER → 2023-11-03 | Outpatient (CLI) | payer MEDICARE, OTHER ==
[~2023-11-03] MED LIST changes: -GARL500C2 PO; +GARL500C6 PO
== END ==
LOC: M PLAIMG 07:35
PROVIDERS: ATTEND Nurse Practitioner Family
DX: M54.2 Cervicalgia (principal)

== ENCOUNTER → 2023-12-01 | Outpatient (REF) | payer MEDICARE, OTHER ==
[2023-12-01 16:43] LABS: C REACTIVE PROTEIN QUANTITATIV < 0.40 MG/DL (<1.0); CORTISOL AM 14.5 UG/DL (4.3-22.4)
== END ==
LOC: M LAB REF 16:03
PROVIDERS: ATTEND Internal Medicine
DX: E31.20 Multiple endocrine neoplasia [MEN] syndrome, unspecified (principal); Z86.718 Personal history of other venous thrombosis and embolism; M48.062 Spinal stenosis, lumbar region with neurogenic claudication; M54.2 Cervicalgia

== ENCOUNTER → 2023-12-10 | Outpatient (CLI) | payer MEDICARE, OTHER | LOC: M PLARAD 13:40 | PROVIDERS: ATTEND Internal Medicine | DX: R44.2 Other hallucinations (principal); R47.81 Slurred speech; R90.82 White matter disease, unspecified; I67.82 Cerebral ischemia ==

== ENCOUNTER → 2023-12-10 | Outpatient (CLI) | payer MEDICARE, OTHER | LOC: M PLAIMG 14:42 | PROVIDERS: ATTEND Nurse Practitioner Family | DX: M19.042 Primary osteoarthritis, left hand (principal) ==

== ENCOUNTER → 2023-12-10 | Outpatient (CLI) | payer MEDICARE, OTHER | LOC: M PLAIMG 13:43 | PROVIDERS: ATTEND Nurse Practitioner Family | DX: Z53.9 Procedure and treatment not carried out, unspecified reason (principal) ==

== ENCOUNTER → 2023-12-20 | Outpatient (CLI) | payer MEDICARE, OTHER ==
[2023-12-20 09:29] LABS: FREE T4 1.16 NG/DL (0.89-1.76); THYROID STIMULATING HORMONE 0.557 uIU/ML (0.55-4.78)
[2023-12-20 09:32] LABS: CARCINOEMBRYONIC ANTIGEN < 2.0 NG/ML (<2.5)
== END ==
LOC: M LAB 07:00
PROVIDERS: ATTEND Internal Medicine Endocrinology, Diabetes & Metabolism
DX: E89.0 Postprocedural hypothyroidism (principal)

== ENCOUNTER 2024-01-28 08:38 | Emergency (ER) | payer MEDICARE, OTHER ==
[~2024-01-28] VITALS: Ht 182.9 cm; Wt 84.6 kg
[2024-01-28] MEDS ORDERED: CALC500T61 PO (09:08)
[2024-01-28 09:18] LABS: BASO # 0.1 10^3/uL (0.0-0.2); BASO % 1.3 % (0.0-1.0); EOS # 0.1 10^3/uL (0.0-0.5); EOS % 2.4 % (0.0-3.0); HEMATOCRIT 43.9 % (42.0-52.0); HEMOGLOBIN 15.7 g/dl (13.5-17.5); LYMPH # 1.5 10^3/uL (1.5-5.0); LYMPH % 32.9 % (24.0-44.0); MEAN CORPUSCULAR HEMOGLOBIN 34.1 pg (27.0-33.0); MEAN CORPUSCULAR HGB CONC 35.8 g/dl (32.0-36.5); MEAN CORPUSCULAR VOLUME 95.2 fl (80.0-96.0); MONO # 0.6 10^3/uL (0.0-0.8); MONO % 12.6 % (2.0-8.0); NEUTROPHILS # 2.4 10^3/uL (1.5-8.5); NEUTROPHILS % 50.6 % (36.0-66.0); PLATELET COUNT, AUTOMATED 139 10^3/uL (150-450); RED BLOOD COUNT 4.61 10^6/uL (4.30-6.10); WHITE BLOOD COUNT 4.7 10^3/uL (4.0-10.0)
[2024-01-28 09:30] LABS: INR 1.06; PROTHROMBIN TIME 13.5 SECONDS (12.5-14.5)
[2024-01-28 09:37] LABS: CK-MB VALUE MASS 2.2 NG/ML (<3.6)
[2024-01-28 09:38] LABS: BLOOD UREA NITROGEN 12 MG/DL (9-23); CALCIUM LEVEL 8.8 MG/DL (8.3-10.6); CARBON DIOXIDE LEVEL 27 MMOL/L (20-31); CHLORIDE LEVEL 108 MMOL/L (98-107); CREATININE FOR GFR 0.79 MG/DL (0.70-1.30); GLOMERULAR FILTRATION RATE > 60.0 (>42); GLUCOSE, FASTING 99 MG/DL (74-106); POTASSIUM SERUM 3.9 MMOL/L (3.5-5.1); SODIUM LEVEL 142 MMOL/L (136-145)
[2024-01-28 09:43] LABS: CPK CREATINE PHOSPHOKINASE 99 U/L (46-171); MB/CK RELATIVE INDEX 2.22 (< OR =4)
[2024-01-28 10:27] LABS: CK-MB VALUE MASS 2.7 NG/ML (<3.6)
[2024-01-28 10:29] LABS: MB/CK RELATIVE INDEX 3.06 (< OR =4)
[2024-01-28] MEDS ORDERED: ISOVUE-370 76% 100ML VIAL As Ordered ONE (11:39)
[2024-01-28 14:00] VITALS: BP 169/80; TEMP 96.8; O2SAT 98
== END 2024-01-28 14:12 | disposition home or self-care (01) ==
LOC: M ED 08:38
DX: R07.9 Chest pain, unspecified (principal); R91.1 Solitary pulmonary nodule; R00.1 Bradycardia, unspecified; I25.2 Old myocardial infarction; Z88.0 Allergy status to penicillin; Z88.1 Allergy status to other antibiotic agents; Z88.8 Allergy status to other drugs, medicaments and biological substances; Z91.018 Allergy to other foods; Z91.013 Allergy to seafood; Z91.040 Latex allergy status; Z79.01 Long term (current) use of anticoagulants; Z79.899 Other long term (current) drug therapy
CPT/HCPCS: 36415; 71045; 71275; 80048; 82550; 82553; 84484; 85025; 85610; 85730; 93005; 93041; 94760; 99285; Q9967

== ENCOUNTER → 2024-02-05 | Outpatient (CLI) | payer MEDICARE, OTHER ==
[~2024-02-05] MED LIST changes: +CALC500T61 PO
== END ==
LOC: M SLEEP 20:00
PROVIDERS: ATTEND Internal Medicine Pulmonary Disease
DX: G47.33 Obstructive sleep apnea (adult) (pediatric) (principal)

== ENCOUNTER → 2024-02-17 | Outpatient (CLI) | payer MEDICARE, OTHER | LOC: M LAB 07:15 | PROVIDERS: ATTEND Urology | DX: C61 Malignant neoplasm of prostate (principal) ==

== ENCOUNTER → 2024-03-16 | Outpatient (REF) | payer MEDICARE, OTHER ==
[~2024-03-16] MED LIST changes: +AMLO2.5T3; +MAG100TA PO; +ROSU20TA61; +SYNT88TA2; +TRAZ-252 PO
[2024-03-16 11:40] LABS: TOTAL VOLUME, URINE 2650 ML
[2024-03-16 12:02] LABS: URINE TOTAL PROTEIN < 6.0 MG/DL (0-14)
== END ==
LOC: M LAB REF 10:08
PROVIDERS: ATTEND Internal Medicine Hematology & Oncology
DX: Z00.00 Encounter for general adult medical examination without abnormal findings (principal)

== ENCOUNTER 2024-03-25 16:11 | Emergency (ER) | payer MEDICARE, OTHER ==
[~2024-03-25] VITALS: Ht 182.9 cm; Wt 84.3 kg
[~2024-03-25 16:11] MED LIST changes: -ROSU20TA61; +ROSU20TA86
[2024-03-25 18:20] LABS: BASO % 0.6 % (0.0-1.0); EOS # 0.1 10^3/uL (0.0-0.5); EOS % 1.2 % (0.0-3.0); HEMATOCRIT 43.5 % (42.0-52.0); HEMOGLOBIN 15.4 g/dl (13.5-17.5); LYMPH # 1.3 10^3/uL (1.5-5.0); LYMPH % 19.6 % (24.0-44.0); MEAN CORPUSCULAR HGB CONC 35.4 g/dl (32.0-36.5); MONO # 0.6 10^3/uL (0.0-0.8); MONO % 8.3 % (2.0-8.0); NEUTROPHILS # 4.7 10^3/uL (1.5-8.5); PLATELET COUNT, AUTOMATED 120 10^3/uL (150-450); RED BLOOD COUNT 4.53 10^6/uL (4.30-6.10); WHITE BLOOD COUNT 6.8 10^3/uL (4.0-10.0)
[2024-03-25 20:14] VITALS: BP 175/89; TEMP 97.2; O2SAT 99
== END 2024-03-25 22:20 | disposition home or self-care (01) ==
LOC: M ED 16:11
DX: K40.90 Unilateral inguinal hernia, without obstruction or gangrene, not specified as recurrent (principal); I25.2 Old myocardial infarction; R00.1 Bradycardia, unspecified; Z85.46 Personal history of malignant neoplasm of prostate; Z88.0 Allergy status to penicillin; Z88.1 Allergy status to other antibiotic agents; Z88.8 Allergy status to other drugs, medicaments and biological substances; Z91.013 Allergy to seafood; Z91.018 Allergy to other foods; Z79.01 Long term (current) use of anticoagulants; Z79.899 Other long term (current) drug therapy

== ENCOUNTER 2024-04-10 13:49 | Emergency (ER) | payer MEDICARE, OTHER ==
[~2024-04-10] VITALS: Ht 182.9 cm; Wt 82.3 kg
[~2024-04-10 13:49] MED LIST changes: +GABA-1171
[2024-04-10] MEDS ORDERED: ROSU20TA86 PO (14:11)
[2024-04-10] MEDS: ACETAMINOPHEN 500 MG TAB PO ONE (17:23)
[2024-04-10 18:06] LABS: BASO # 0.1 10^3/uL (0.0-0.2); BASO % 1.3 % (0.0-1.0); EOS # 0.1 10^3/uL (0.0-0.5); EOS % 1.1 % (0.0-3.0); HEMATOCRIT 41.3 % (42.0-52.0); HEMOGLOBIN 14.6 g/dl (13.5-17.5); LYMPH # 1.4 10^3/uL (1.5-5.0); LYMPH % 25.9 % (24.0-44.0); MEAN CORPUSCULAR HEMOGLOBIN 34.1 pg (27.0-33.0); MEAN CORPUSCULAR HGB CONC 35.4 g/dl (32.0-36.5); MEAN CORPUSCULAR VOLUME 96.5 fl (80.0-96.0); MONO # 0.6 10^3/uL (0.0-0.8); MONO % 11.2 % (2.0-8.0); NEUTROPHILS # 3.4 10^3/uL (1.5-8.5); NEUTROPHILS % 60.1 % (36.0-66.0); PLATELET COUNT, AUTOMATED 143 10^3/uL (150-450); RED BLOOD COUNT 4.28 10^6/uL (4.30-6.10); WHITE BLOOD COUNT 5.6 10^3/uL (4.0-10.0)
[2024-04-10 18:24] LABS: LIPASE 35 U/L (12-53)
[2024-04-10 18:26] LABS: ALBUMIN 3.5 G/DL (3.2-5.2); ALKALINE PHOSPHATASE 65 U/L (46-116); ALT/SGPT 14 U/L (7.0-40); AST/SGOT 18 U/L (<34); BILIRUBIN,DIRECT 0.4 MG/DL (<0.4); BILIRUBIN,TOTAL 1.3 MG/DL (0.3-1.2); BLOOD UREA NITROGEN 13 MG/DL (9-23); CALCIUM LEVEL 9.3 MG/DL (8.3-10.6); CARBON DIOXIDE LEVEL 30 MMOL/L (20-31); CHLORIDE LEVEL 110 MMOL/L (98-107); GLOMERULAR FILTRATION RATE > 60.0 (>42); GLUCOSE, FASTING 135 MG/DL (74-106); SODIUM LEVEL 144 MMOL/L (136-145); TOTAL PROTEIN 6.6 G/DL (5.7-8.2)
[2024-04-10] MEDS ORDERED: ISOVUE-370 76% 100ML VIAL As Ordered ONE (18:50)
[2024-04-10 22:23] VITALS: BP 128/78; TEMP 98.8; O2SAT 98
== END 2024-04-10 22:25 | disposition home or self-care (01) ==
LOC: M ED 13:49
DX: R10.31 Right lower quadrant pain (principal); J45.909 Unspecified asthma, uncomplicated; Z88.0 Allergy status to penicillin; Z88.1 Allergy status to other antibiotic agents; Z88.8 Allergy status to other drugs, medicaments and biological substances; Z91.040 Latex allergy status; Z91.018 Allergy to other foods; Z91.013 Allergy to seafood; Z79.01 Long term (current) use of anticoagulants; Z79.899 Other long term (current) drug therapy
CPT/HCPCS: 36415; 51798; 74177; 80048; 80076; 83690; 85025; 99284; Q9967

== ENCOUNTER → 2024-04-25 | Outpatient (REF) | payer MEDICARE, OTHER ==
[~2024-04-25] MED LIST changes: +ROSU20TA86 PO
[2024-04-25 15:08] LABS: APPEARANCE, URINE HAZY (CLEAR); BACTERIA, URINE AUTO NEGATIVE (NEGATIVE); BILIRUBIN, URINE AUTO NEGATIVE (NEGATIVE); BLOOD, URINE BLOOD NEGATIVE (NEGATIVE); COLOR, URINE YELLOW (YELLOW); GLUCOSE, URINE (UA) AUTO NEGATIVE (NEGATIVE); KETONE, URINE AUTO NEGATIVE (NEGATIVE); LEUKOCYTE ESTERASE, URINE AUTO NEGATIVE (NEGATIVE); NITRITE, URINE AUTO NEGATIVE (NEGATIVE); PROTEIN, URINE AUTO NEGATIVE (NEGATIVE); RBC, URINE AUTO 0 /HPF (0-3); SPECIFIC GRAVITY URINE AUTO 1.008 (1.002-1.035); SQUAMOUS EPITHELIAL CELL UR AU 0 /HPF (0-6); UROBILINOGEN, URINE AUTO 0.2 mg/dL (0.0-2.0); WBC, URINE AUTO 0 /HPF (0-3)
== END ==
LOC: M SMT 14:49
PROVIDERS: ATTEND Urology
DX: N39.0 Urinary tract infection, site not specified (principal)

== ENCOUNTER → 2024-05-02 | Outpatient (CLI) | payer MEDICARE, OTHER ==
[~2024-05-02] MED LIST changes: +CYAN-11 PO; +LIDOCAINE 1% MDV 20ML VIAL As Ordered ONE; +ROSU5TAB49 PO; +[UNRECOGNIZED DRUG - OTHER] PO
[2024-05-02 09:12] VITALS: TEMP 97.5
[2024-05-02 09:55] VITALS: BP 156/93; O2SAT 99
[2024-05-02 10:15] LABS: BASO # 0.1 10^3/uL (0.0-0.2); BASO % 1.2 % (0.0-1.0); EOS # 0.1 10^3/uL (0.0-0.5); EOS % 2.8 % (0.0-3.0); HEMATOCRIT 41.3 % (42.0-52.0); HEMOGLOBIN 14.6 g/dl (13.5-17.5); LYMPH # 1.2 10^3/uL (1.5-5.0); LYMPH % 23.4 % (24.0-44.0); MEAN CORPUSCULAR HEMOGLOBIN 34.4 pg (27.0-33.0); MEAN CORPUSCULAR HGB CONC 35.4 g/dl (32.0-36.5); MEAN CORPUSCULAR VOLUME 97.4 fl (80.0-96.0); MONO # 0.7 10^3/uL (0.0-0.8); MONO % 13.2 % (2.0-8.0); PLATELET COUNT, AUTOMATED 122 10^3/uL (150-450); RED BLOOD COUNT 4.24 10^6/uL (4.30-6.10)
== END ==
LOC: M IRPRO 08:58
PROVIDERS: ATTEND Internal Medicine Hematology & Oncology
DX: D80.8 Other immunodeficiencies with predominantly antibody defects (principal); D69.6 Thrombocytopenia, unspecified

== ENCOUNTER → 2024-05-04 | Outpatient (CLI) | payer MEDICARE, OTHER ==
[~2024-05-04] MED LIST changes: -CYAN-11 PO; +ISOVUE-370 76% 100ML VIAL ONE; -LIDOCAINE 1% MDV 20ML VIAL As Ordered ONE; -ROSU5TAB49 PO; -[UNRECOGNIZED DRUG - OTHER] PO
== END ==
LOC: M PLAIMG 09:30
PROVIDERS: ATTEND Otolaryngology
DX: K11.7 Disturbances of salivary secretion (principal)
CPT/HCPCS: 70491; Q9967

== ENCOUNTER → 2024-05-17 | Outpatient (CLI) | payer MEDICARE, OTHER ==
[~2024-05-17] MED LIST changes: +CYAN-11 PO; -ISOVUE-370 76% 100ML VIAL ONE; +ROSU5TAB49 PO; +[UNRECOGNIZED DRUG - OTHER] PO
[2024-05-17 09:03] LABS: BASO # 0.1 10^3/uL (0.0-0.2); BASO % 1.2 % (0.0-1.0); EOS # 0.2 10^3/uL (0.0-0.5); EOS % 3.5 % (0.0-3.0); LYMPH # 1.3 10^3/uL (1.5-5.0); LYMPH % 25.5 % (24.0-44.0); MEAN CORPUSCULAR HEMOGLOBIN 33.9 pg (27.0-33.0); MEAN CORPUSCULAR HGB CONC 34.9 g/dl (32.0-36.5); MEAN CORPUSCULAR VOLUME 97.1 fl (80.0-96.0); MONO # 0.6 10^3/uL (0.0-0.8); MONO % 12.9 % (2.0-8.0); NEUTROPHILS # 2.8 10^3/uL (1.5-8.5); NEUTROPHILS % 56.7 % (36.0-66.0); PLATELET COUNT, AUTOMATED 127 10^3/uL (150-450); RED BLOOD COUNT 4.43 10^6/uL (4.30-6.10); WHITE BLOOD COUNT 4.9 10^3/uL (4.0-10.0)
[2024-05-17 09:20] LABS: AMYLASE 85 U/L (30-118)
[2024-05-17 09:21] LABS: ALBUMIN 3.5 G/DL (3.2-5.2); ALKALINE PHOSPHATASE 64 U/L (40-129); ALT/SGPT 14 U/L (7.0-40); AST/SGOT 17 U/L (<34); BILIRUBIN,TOTAL 1.2 MG/DL (0.3-1.2); BLOOD UREA NITROGEN 11 MG/DL (9-23); CALCIUM LEVEL 9.3 MG/DL (8.3-10.6); CARBON DIOXIDE LEVEL 31 MMOL/L (20-31); CHLORIDE LEVEL 110 MMOL/L (98-107); CREATININE FOR GFR 0.81 MG/DL (0.70-1.30); GLOMERULAR FILTRATION RATE > 60.0 (>42); GLUCOSE, FASTING 97 MG/DL (74-106); POTASSIUM SERUM 4.1 MMOL/L (3.5-5.1); SODIUM LEVEL 143 MMOL/L (136-145); TOTAL PROTEIN 6.5 G/DL (5.7-8.2)
== END ==
LOC: M RAD 07:46
PROVIDERS: ATTEND Internal Medicine Gastroenterology
DX: K59.00 Constipation, unspecified (principal)

== ENCOUNTER → 2024-06-19 | Outpatient (CLI) | payer MEDICARE, OTHER ==
[~2024-06-19] MED LIST changes: -ADV250INH INH; +ADVA1AER9 INH; +CVS1CAP2 PO; +LEVO-88 PO
== END ==
LOC: M PAIN 08:00
PROVIDERS: ATTEND Nurse Practitioner Family
DX: R10.9 Unspecified abdominal pain (principal); G89.29 Other chronic pain; M79.10 Myalgia, unspecified site; G57.91 Unspecified mononeuropathy of right lower limb; E03.9 Hypothyroidism, unspecified; K90.0 Celiac disease; G47.30 Sleep apnea, unspecified; M54.2 Cervicalgia; R51.9 Headache, unspecified; F41.9 Anxiety disorder, unspecified; D69.6 Thrombocytopenia, unspecified; Z79.890 Hormone replacement therapy; Z79.01 Long term (current) use of anticoagulants; Z79.899 Other long term (current) drug therapy; Z88.0 Allergy status to penicillin; Z88.1 Allergy status to other antibiotic agents; Z88.6 Allergy status to analgesic agent; Z88.8 Allergy status to other drugs, medicaments and biological substances; Z91.018 Allergy to other foods; Z91.013 Allergy to seafood

== ENCOUNTER → 2024-06-22 | Outpatient (CLI) | payer MEDICARE, OTHER | LOC: M PLARAD 10:19 | PROVIDERS: ATTEND Internal Medicine Medical Oncology | DX: H53.2 Diplopia (principal); F98.5 Adult onset fluency disorder; K11.7 Disturbances of salivary secretion; G31.9 Degenerative disease of nervous system, unspecified; I67.82 Cerebral ischemia ==

== ENCOUNTER → 2024-07-07 | Outpatient (CLI) | payer MEDICARE, OTHER | LOC: M PAIN 15:30 | PROVIDERS: ATTEND Nurse Practitioner Family | DX: M79.18 Myalgia, other site (principal); M54.2 Cervicalgia; G89.29 Other chronic pain; E03.9 Hypothyroidism, unspecified; K90.0 Celiac disease; J45.909 Unspecified asthma, uncomplicated; Z13.89 Encounter for screening for other disorder; Z79.01 Long term (current) use of anticoagulants; Z79.899 Other long term (current) drug therapy; Z86.711 Personal history of pulmonary embolism; Z88.0 Allergy status to penicillin; Z88.1 Allergy status to other antibiotic agents; Z88.6 Allergy status to analgesic agent; Z88.8 Allergy status to other drugs, medicaments and biological substances; Z91.018 Allergy to other foods; Z91.013 Allergy to seafood | CPT/HCPCS: 86803; G0463 ==

== ENCOUNTER → 2024-07-07 | Outpatient (REF) | payer MEDICARE, OTHER | LOC: M LAB REF 12:57 | PROVIDERS: ATTEND Internal Medicine | DX: Z13.89 Encounter for screening for other disorder (principal) ==

== ENCOUNTER → 2024-07-12 | Outpatient (CLI) | payer MEDICARE, OTHER | LOC: M PAIN 15:45 | PROVIDERS: ATTEND Anesthesiology | DX: R10.2 Pelvic and perineal pain (principal); G89.29 Other chronic pain; E03.9 Hypothyroidism, unspecified; K90.0 Celiac disease; J45.909 Unspecified asthma, uncomplicated; Z79.890 Hormone replacement therapy; Z79.01 Long term (current) use of anticoagulants; Z79.899 Other long term (current) drug therapy; Z88.0 Allergy status to penicillin; Z88.1 Allergy status to other antibiotic agents; Z88.6 Allergy status to analgesic agent; Z88.8 Allergy status to other drugs, medicaments and biological substances; Z91.018 Allergy to other foods; Z91.013 Allergy to seafood ==

== ENCOUNTER → 2024-07-26 | Outpatient (CLI) | payer MEDICARE, OTHER ==
[2024-07-26 08:38] LABS: BASO # 0.1 10^3/uL (0.0-0.2); BASO % 1.4 % (0.0-1.0); EOS # 0.2 10^3/uL (0.0-0.5); EOS % 3.6 % (0.0-3.0); HEMATOCRIT 45.3 % (42.0-52.0); LYMPH # 1.4 10^3/uL (1.5-5.0); LYMPH % 26.7 % (24.0-44.0); MEAN CORPUSCULAR HEMOGLOBIN 33.8 pg (27.0-33.0); MEAN CORPUSCULAR HGB CONC 35.3 g/dl (32.0-36.5); MEAN CORPUSCULAR VOLUME 95.6 fl (80.0-96.0); MONO # 0.7 10^3/uL (0.0-0.8); MONO % 13.8 % (2.0-8.0); NEUTROPHILS # 2.8 10^3/uL (1.5-8.5); NEUTROPHILS % 54.3 % (36.0-66.0); PLATELET COUNT, AUTOMATED 125 10^3/uL (150-450); RED BLOOD COUNT 4.74 10^6/uL (4.30-6.10); WHITE BLOOD COUNT 5.1 10^3/uL (4.0-10.0)
[2024-07-26 08:49] LABS: ALBUMIN 3.6 G/DL (3.2-5.2); ALKALINE PHOSPHATASE 66 U/L (40-129); ALT/SGPT 18 U/L (7.0-40); AST/SGOT 27 U/L (<34); BILIRUBIN,TOTAL 0.9 MG/DL (0.3-1.2); BLOOD UREA NITROGEN 14 MG/DL (9-23); CALCIUM LEVEL 8.9 MG/DL (8.3-10.6); CARBON DIOXIDE LEVEL 31 MMOL/L (20-31); CHLORIDE LEVEL 106 MMOL/L (98-107); CREATININE FOR GFR 0.85 MG/DL (0.70-1.30); GLOMERULAR FILTRATION RATE > 60.0 (>42); GLUCOSE, FASTING 107 MG/DL (74-106); POTASSIUM SERUM 4.3 MMOL/L (3.5-5.1); SODIUM LEVEL 145 MMOL/L (136-145); TOTAL PROTEIN 6.9 G/DL (5.7-8.2)
== END ==
LOC: M LAB 07:24
PROVIDERS: ATTEND Internal Medicine Hematology & Oncology
DX: R79.89 Other specified abnormal findings of blood chemistry (principal)

== ENCOUNTER → 2024-07-26 | Outpatient (CLI) | payer MEDICARE, OTHER ==
[2024-07-26 08:40] LABS: BASO # 0.1 10^3/uL (0.0-0.2); BASO % 1.4 % (0.0-1.0); EOS # 0.2 10^3/uL (0.0-0.5); EOS % 3.8 % (0.0-3.0); HEMATOCRIT 45.6 % (42.0-52.0); HEMOGLOBIN 16.1 g/dl (13.5-17.5); LYMPH # 1.4 10^3/uL (1.5-5.0); LYMPH % 27.6 % (24.0-44.0); MEAN CORPUSCULAR HEMOGLOBIN 33.8 pg (27.0-33.0); MEAN CORPUSCULAR HGB CONC 35.3 g/dl (32.0-36.5); MEAN CORPUSCULAR VOLUME 95.6 fl (80.0-96.0); MONO # 0.7 10^3/uL (0.0-0.8); MONO % 14.5 % (2.0-8.0); NEUTROPHILS # 2.6 10^3/uL (1.5-8.5); NEUTROPHILS % 52.5 % (36.0-66.0); PLATELET COUNT, AUTOMATED 127 10^3/uL (150-450); RED BLOOD COUNT 4.77 10^6/uL (4.30-6.10)
[2024-07-26 08:48] LABS: ERYTHROCYTE SEDIMENTATION RATE 6 mm/hr (0-20)
[2024-07-26 08:49] LABS: C REACTIVE PROTEIN QUANTITATIV < 0.50 MG/DL (<1.0)
[2024-07-26 08:50] LABS: ALBUMIN 3.6 G/DL (3.2-5.2); ALKALINE PHOSPHATASE 65 U/L (40-129); ALT/SGPT 17 U/L (7.0-40); AST/SGOT 27 U/L (<34); BILIRUBIN,TOTAL 0.9 MG/DL (0.3-1.2); BLOOD UREA NITROGEN 14 MG/DL (9-23); CARBON DIOXIDE LEVEL 31 MMOL/L (20-31); CHLORIDE LEVEL 109 MMOL/L (98-107); CREATININE FOR GFR 0.85 MG/DL (0.70-1.30); GLOMERULAR FILTRATION RATE > 60.0 (>42); GLUCOSE, FASTING 109 MG/DL (74-106); IRON (FE) 113 UG/DL (65-175); POTASSIUM SERUM 4.5 MMOL/L (3.5-5.1); SODIUM LEVEL 146 MMOL/L (136-145); TOTAL IRON BINDING CAPACITY 390 UG/DL (250-425); TOTAL PROTEIN 6.9 G/DL (5.7-8.2)
[2024-07-26 08:51] LABS: IMMUNOGLOBULIN A 267.6 MG/DL (40-350)
[2024-07-26 08:52] LABS: FOLATE 23.3 NG/ML (>5.4); TOTAL 25(OH) VITAMIN D 74.1 NG/ML (20.0-100.0); VITAMIN B12 LEVEL 1168 PG/ML (211-911)
[2024-07-28 00:52] LABS: TISSUE TRANSGLUTAMINASE IgA 1.3 U/mL (<15.0); TISSUE TRANSGLUTAMINASE IgG < 1.0 U/mL (<15.0); UNITSIGA FOR GLIADIN IGA < 1.0 U/mL (<15.0); UNITSIGG FOR GLIADIN IGG < 1.0 U/mL (<15.0)
[2024-07-29 19:23] LABS: ZINC PLASMA 85 mcg/dL (60-130)
== END ==
LOC: M LAB 07:22
PROVIDERS: ATTEND Nurse Practitioner Family
DX: R10.31 Right lower quadrant pain (principal); R79.89 Other specified abnormal findings of blood chemistry; Z79.899 Other long term (current) drug therapy

== ENCOUNTER → 2024-08-01 | Outpatient (CLI) | payer MEDICARE, OTHER | LOC: M PAIN 16:00 | PROVIDERS: ATTEND Anesthesiology | DX: R10.2 Pelvic and perineal pain (principal); G89.29 Other chronic pain; Z79.890 Hormone replacement therapy; Z79.01 Long term (current) use of anticoagulants; Z79.899 Other long term (current) drug therapy; Z88.0 Allergy status to penicillin; Z88.1 Allergy status to other antibiotic agents; Z88.8 Allergy status to other drugs, medicaments and biological substances; Z88.5 Allergy status to narcotic agent; Z91.013 Allergy to seafood; Z91.018 Allergy to other foods ==

== ENCOUNTER → 2024-08-07 | Outpatient (CLI) | payer MEDICARE, OTHER | LOC: M LAB 06:59 | PROVIDERS: ATTEND Urology | DX: C61 Malignant neoplasm of prostate (principal) ==

== ENCOUNTER → 2024-08-07 | Outpatient (CLI) | payer MEDICARE, OTHER ==
[2024-08-07 08:40] LABS: BLOOD UREA NITROGEN 13 MG/DL (9-23); CALCIUM LEVEL 8.7 MG/DL (8.3-10.6); CARBON DIOXIDE LEVEL 31 MMOL/L (20-31); CHLORIDE LEVEL 106 MMOL/L (98-107); CREATININE FOR GFR 0.84 MG/DL (0.70-1.30); GLOMERULAR FILTRATION RATE > 60.0 (>42); GLUCOSE, FASTING 102 MG/DL (74-106); POTASSIUM SERUM 4.2 MMOL/L (3.5-5.1); SODIUM LEVEL 143 MMOL/L (136-145)
[2024-08-07 08:43] LABS: CARCINOEMBRYONIC ANTIGEN < 2.0 NG/ML (<2.5); FREE T4 1.15 NG/DL (0.89-1.76)
== END ==
LOC: M LAB 06:56
PROVIDERS: ATTEND Internal Medicine Endocrinology, Diabetes & Metabolism
DX: C73 Malignant neoplasm of thyroid gland (principal)

== ENCOUNTER → 2024-08-07 | Outpatient (CLI) | payer MEDICARE, OTHER ==
[~2024-08-07] MED LIST changes: +ISOVUE-370 76% 100ML VIAL ONE
== END ==
LOC: M PLAIMG 08:04
PROVIDERS: ATTEND Internal Medicine Hematology & Oncology
DX: E85.81 Light chain (AL) amyloidosis (principal); C73 Malignant neoplasm of thyroid gland; C61 Malignant neoplasm of prostate
CPT/HCPCS: 36415; 71260; 80048; 80053; 82308; 82378; 82784; 83521; 83835; 84153; 84155; 84165; 84439; 84443; 85025; Q9967

== ENCOUNTER → 2024-08-07 | Outpatient (CLI) | payer MEDICARE, OTHER ==
[~2024-08-07] MED LIST changes: -ISOVUE-370 76% 100ML VIAL ONE
[2024-08-07 08:25] LABS: BASO # 0.1 10^3/uL (0.0-0.2); BASO % 1.2 % (0.0-1.0); EOS # 0.1 10^3/uL (0.0-0.5); EOS % 3.3 % (0.0-3.0); HEMATOCRIT 41.7 % (42.0-52.0); HEMOGLOBIN 14.6 g/dl (13.5-17.5); LYMPH # 1.3 10^3/uL (1.5-5.0); LYMPH % 29.8 % (24.0-44.0); MEAN CORPUSCULAR HEMOGLOBIN 33.2 pg (27.0-33.0); MEAN CORPUSCULAR VOLUME 94.8 fl (80.0-96.0); MONO # 0.7 10^3/uL (0.0-0.8); NEUTROPHILS # 2.1 10^3/uL (1.5-8.5); NEUTROPHILS % 48.5 % (36.0-66.0); PLATELET COUNT, AUTOMATED 121 10^3/uL (150-450); WHITE BLOOD COUNT 4.3 10^3/uL (4.0-10.0)
[2024-08-07 08:53] LABS: IMMUNOGLOBULIN A 251.8 MG/DL (40-350)
[2024-08-07 08:54] LABS: IMMUNOGLOBULIN G 1006 MG/DL (650-1600); IMMUNOGLOBULIN M 74.7 MG/DL (50-300)
[2024-08-07 09:39] LABS: ALBUMIN 3.3 G/DL (3.2-5.2); ALKALINE PHOSPHATASE 67 U/L (40-129); ALT/SGPT 17 U/L (7.0-40); AST/SGOT 24 U/L (<34); BILIRUBIN,TOTAL 0.7 MG/DL (0.3-1.2); BLOOD UREA NITROGEN 13 MG/DL (9-23); CALCIUM LEVEL 8.9 MG/DL (8.3-10.6); CARBON DIOXIDE LEVEL 31 MMOL/L (20-31); CHLORIDE LEVEL 106 MMOL/L (98-107); CREATININE FOR GFR 0.87 MG/DL (0.70-1.30); GLOMERULAR FILTRATION RATE > 60.0 (>42); GLUCOSE, FASTING 101 MG/DL (74-106); POTASSIUM SERUM 4.2 MMOL/L (3.5-5.1); SODIUM LEVEL 143 MMOL/L (136-145); TOTAL PROTEIN 6.2 G/DL (5.7-8.2)
[2024-08-08 07:32] LABS: T P ELECTROPHORESIS SO 6.3 g/dL (6.1-8.1)
[2024-08-08 12:04] LABS: FREE KAPPA LIGHT CHAINS SERUM 23.6 mg/L (3.3-19.4); KAPPA/LAMBDA RATIO SERUM 1.57 (0.26-1.65)
[2024-08-09 11:23] LABS: ALBUMIN SPEP 3.9 g/dL (3.8-4.8); ALPHA-1-GLOBULINS SO 0.2 g/dL (0.2-0.3); ALPHA-2-GLOBULINS SO 0.5 g/dL (0.5-0.9); BETA 2 GLOBULIN 0.3 g/dL (0.2-0.5); BETA-GLOBULIN SO 0.4 g/dL (0.4-0.6); GAMMA GLOBULINS SO 0.9 g/dL (0.8-1.7)
== END ==
LOC: M LAB 06:53
PROVIDERS: ATTEND Internal Medicine Hematology & Oncology
DX: C73 Malignant neoplasm of thyroid gland (principal)

== ENCOUNTER → 2024-09-04 | Outpatient (CLI) | payer MEDICARE, OTHER | LOC: M PLAIMG 06:36 | PROVIDERS: ATTEND Nurse Practitioner Family | DX: M47.26 Other spondylosis with radiculopathy, lumbar region (principal) ==

== ENCOUNTER 2024-09-25 01:48 | Emergency (ER) | payer MEDICARE, OTHER ==
[~2024-09-25] VITALS: Ht 180.3 cm; Wt 90.4 kg
[2024-09-25 01:52] VITALS: TEMP 97.4
[2024-09-25] MEDS: KETOROLAC 30 MG/ML 1ML VIAL IV ONE (03:39)
[2024-09-25] MEDS: METHOCARBAMOL 1,000 MG/10 ML VIAL IV ONE (03:41)
[2024-09-25 03:58] LABS: BASO # 0.1 10^3/uL (0.0-0.2); BASO % 1.3 % (0.0-1.0); EOS # 0.2 10^3/uL (0.0-0.5); EOS % 3.7 % (0.0-3.0); HEMATOCRIT 44.8 % (42.0-52.0); HEMOGLOBIN 16.1 g/dl (13.5-17.5); LYMPH # 1.5 10^3/uL (1.5-5.0); LYMPH % 24.4 % (24.0-44.0); MEAN CORPUSCULAR HEMOGLOBIN 34.1 pg (27.0-33.0); MEAN CORPUSCULAR HGB CONC 35.9 g/dl (32.0-36.5); MEAN CORPUSCULAR VOLUME 94.9 fl (80.0-96.0); MONO # 0.8 10^3/uL (0.0-0.8); NEUTROPHILS # 3.5 10^3/uL (1.5-8.5); NEUTROPHILS % 57.1 % (36.0-66.0); PLATELET COUNT, AUTOMATED 135 10^3/uL (150-450); RED BLOOD COUNT 4.72 10^6/uL (4.30-6.10); WHITE BLOOD COUNT 6.2 10^3/uL (4.0-10.0)
[2024-09-25 04:24] LABS: BLOOD UREA NITROGEN 14 MG/DL (9-23); CALCIUM LEVEL 8.9 MG/DL (8.3-10.6); CARBON DIOXIDE LEVEL 30 MMOL/L (20-31); CHLORIDE LEVEL 106 MMOL/L (98-107); GLOMERULAR FILTRATION RATE > 60.0 (>42); GLUCOSE, FASTING 108 MG/DL (74-106); POTASSIUM SERUM 4.3 MMOL/L (3.5-5.1); SODIUM LEVEL 143 MMOL/L (136-145)
[2024-09-25] MEDS: ONDANSETRON 4MG 2ML VIAL IV ONE (05:20)
[2024-09-25] MEDS ORDERED: MORPHINE 4 MG/ML 1ML VIAL IV PRN (05:20)
[2024-09-25] MEDS: fentaNYL 100 MCG/2 ML INJECTION IV ONE (05:35)
[2024-09-25 06:00] VITALS: BP 139/76; O2SAT 97
[2024-10-09] MEDS ORDERED: LINZ145C PO (10:32)
== END 2024-09-25 07:55 | disposition left against medical advice (07) ==
LOC: M ED 01:48
DX: M48.061 Spinal stenosis, lumbar region without neurogenic claudication (principal); Z85.46 Personal history of malignant neoplasm of prostate; Z88.0 Allergy status to penicillin; Z88.1 Allergy status to other antibiotic agents; Z88.6 Allergy status to analgesic agent; Z88.8 Allergy status to other drugs, medicaments and biological substances; Z91.018 Allergy to other foods; Z79.01 Long term (current) use of anticoagulants; Z79.899 Other long term (current) drug therapy; Z53.9 Procedure and treatment not carried out, unspecified reason
CPT/HCPCS: 72131; 80048; 85025; 96374; 96375; 99284; G0463; J1885; J2800

== ENCOUNTER → 2024-10-12 | Outpatient (CLI) | payer MEDICARE, OTHER ==
[~2024-10-12] MED LIST changes: +LINZ145C PO
== END ==
LOC: M WHC 13:18
DX: M81.0 Age-related osteoporosis without current pathological fracture (principal)

== ENCOUNTER → 2025-01-30 | Outpatient (REF) | payer MEDICARE, OTHER ==
[~2025-01-30] MED LIST changes: -MELA3TAB7 PO; +MELA3TAB78 PO
[2025-01-30 11:42] LABS: BASO # 0.1 10^3/uL (0.0-0.2); BASO % 1.5 % (0.0-1.0); EOS # 0.2 10^3/uL (0.0-0.5); EOS % 3.7 % (0.0-3.0); LYMPH # 1.3 10^3/uL (1.5-5.0); LYMPH % 31.8 % (24.0-44.0); MONO # 0.6 10^3/uL (0.0-0.8); MONO % 14.1 % (2.0-8.0); NEUTROPHILS # 2.0 10^3/uL (1.5-8.5); NEUTROPHILS % 48.7 % (36.0-66.0); PLATELET COUNT, AUTOMATED 133 10^3/uL (150-450)
[2025-01-30 11:47] LABS: ALT/SGPT 16 U/L (7.0-40); AST/SGOT 26 U/L (<34); CALCIUM LEVEL 8.7 MG/DL (8.3-10.6); CARBON DIOXIDE LEVEL 29 MMOL/L (20-31); CHLORIDE LEVEL 106 MMOL/L (98-107); CREATININE FOR GFR 0.79 MG/DL (0.70-1.30); GLOMERULAR FILTRATION RATE > 90.0 (>42); POTASSIUM SERUM 3.9 MMOL/L (3.5-5.1); SODIUM LEVEL 144 MMOL/L (136-145)
[2025-01-30 11:49] LABS: THYROXINE (T4) 7.9 UG/DL (4.5-10.9)
== END ==
LOC: M LAB REF 10:35
PROVIDERS: ATTEND Internal Medicine Hematology & Oncology
DX: C73 Malignant neoplasm of thyroid gland (principal)

== ENCOUNTER → 2025-02-07 | Outpatient (CLI) | payer MEDICARE, OTHER ==
[~2025-02-07] VITALS: Ht 182.9 cm; Wt 87.1 kg
[~2025-02-07] MED LIST changes: +AMIT10TA11; +DULO1CAP4 PO; +ELIQ2.5T PO; +ROSU10TA61; +SENN18TA PO
[2025-02-07 14:56] VITALS: BP 148/78; O2SAT 99
== END ==
LOC: M PAL 14:27
PROVIDERS: ATTEND Physician Assistant
DX: Z51.5 Encounter for palliative care (principal); R77.9 Abnormality of plasma protein, unspecified; R76.8 Other specified abnormal immunological findings in serum; Z85.850 Personal history of malignant neoplasm of thyroid; E31.20 Multiple endocrine neoplasia [MEN] syndrome, unspecified; M54.50 Low back pain, unspecified; M79.7 Fibromyalgia; Z79.891 Long term (current) use of opiate analgesic; Z88.6 Allergy status to analgesic agent; Z91.013 Allergy to seafood; Z88.0 Allergy status to penicillin; Z88.1 Allergy status to other antibiotic agents; Z91.018 Allergy to other foods
CPT/HCPCS: G0463; G2212

== ENCOUNTER → 2025-02-14 | Outpatient (CLI) | payer MEDICARE, OTHER | LOC: M LAB 07:36 | PROVIDERS: ATTEND Internal Medicine | DX: C61 Malignant neoplasm of prostate (principal) ==

== ENCOUNTER → 2025-02-21 | Outpatient (CLI) | payer MEDICARE, OTHER ==
[~2025-02-21] VITALS: Ht 182.9 cm; Wt 87.1 kg
[2025-02-21 15:17] VITALS: BP 143/82; O2SAT 99
== END ==
LOC: M PAL 15:05
PROVIDERS: ATTEND Physician Assistant
DX: Z51.5 Encounter for palliative care (principal); C90.00 Multiple myeloma not having achieved remission; E31.22 Multiple endocrine neoplasia [MEN] type IIA; M54.59 Other low back pain; M79.7 Fibromyalgia; G62.9 Polyneuropathy, unspecified

== ENCOUNTER → 2025-02-26 | Outpatient (CLI) | payer MEDICARE, OTHER | LOC: M ONCM 09:51 | DX: M79.7 Fibromyalgia (principal); M54.9 Dorsalgia, unspecified; G89.29 Other chronic pain; Z85.850 Personal history of malignant neoplasm of thyroid ==

== ENCOUNTER → 2025-04-04 | Outpatient (CLI) | payer MEDICARE, OTHER ==
[~2025-04-04] VITALS: Ht 182.9 cm; Wt 87.6 kg
[2025-04-04 10:21] VITALS: BP 136/70; O2SAT 100
== END ==
LOC: M PAL 10:02
PROVIDERS: ATTEND Physician Assistant
DX: Z51.5 Encounter for palliative care (principal); C90.00 Multiple myeloma not having achieved remission; E31.22 Multiple endocrine neoplasia [MEN] type IIA; M54.59 Other low back pain; M79.7 Fibromyalgia; G62.9 Polyneuropathy, unspecified; F41.9 Anxiety disorder, unspecified; K59.00 Constipation, unspecified; Z79.899 Other long term (current) drug therapy; Z88.0 Allergy status to penicillin; Z88.1 Allergy status to other antibiotic agents; Z88.6 Allergy status to analgesic agent; Z91.018 Allergy to other foods; Z91.013 Allergy to seafood; Z91.040 Latex allergy status

== ENCOUNTER → 2025-04-11 | Outpatient (CLI) | payer MEDICARE, OTHER ==
[~2025-04-11] MED LIST changes: -ROSU10TA61; +ROSU10TA90
== END ==
LOC: M PLALAB 15:22
PROVIDERS: ATTEND Nurse Practitioner Family
DX: R06.89 Other abnormalities of breathing (principal); R05.9 Cough, unspecified; J02.9 Acute pharyngitis, unspecified

== ENCOUNTER → 2025-05-01 | Outpatient (CLI) | payer MEDICARE, OTHER | LOC: M PLAIMG 09:14 | PROVIDERS: ATTEND Internal Medicine | DX: M79.631 Pain in right forearm (principal); E07.0 Hypersecretion of calcitonin ==

== ENCOUNTER → 2025-05-01 | Outpatient (CLI) | payer MEDICARE, OTHER ==
[2025-05-01 13:39] LABS: CREATININE FOR GFR 0.80 MG/DL (0.70-1.30); GLOMERULAR FILTRATION RATE > 90.0 (>42)
== END ==
LOC: M LAB 11:49
PROVIDERS: ATTEND Otolaryngology
DX: E07.0 Hypersecretion of calcitonin (principal)

== ENCOUNTER → 2025-05-02 | Outpatient (CLI) | payer MEDICARE, OTHER ==
[~2025-05-02] MED LIST changes: +ISOVUE-370 76% 100 ML VIAL As Ordered ONE
== END ==
LOC: M RAD 06:48
PROVIDERS: ATTEND Otolaryngology
DX: R07.0 Pain in throat (principal)
CPT/HCPCS: 70491; Q9967

== ENCOUNTER → 2025-05-21 | Outpatient (CLI) | payer MEDICARE, OTHER ==
[~2025-05-21] MED LIST changes: +ACID1TAB PO; +CALCIUM CITRATE; -COEN100C4 PO; +COQ150CH PO; -CVS100LI4 PO; +E-Z-GAS II EFFERVESCENT PACKET (SODIUM BICARB./CITRIC ACID/SIMETHICONE) As Ordered ONE; +E-Z-HD 98% w/w 340 GM SUSP BTL As Ordered ONE; +E-Z-PAQUE 96% w/w SUSP 176 GM BTL As Ordered ONE; +GUAI-147 PO; -ISOVUE-370 76% 100 ML VIAL As Ordered ONE; +MAG; +UBID100C3 PO; +[UNRECOGNIZED DRUG - OTHER] PO
== END ==
LOC: M RAD 10:33
PROVIDERS: ATTEND Otolaryngology
DX: R13.10 Dysphagia, unspecified (principal)

== ENCOUNTER → 2025-05-28 | Outpatient (CLI) | payer MEDICARE, OTHER ==
[~2025-05-28] MED LIST changes: -E-Z-GAS II EFFERVESCENT PACKET (SODIUM BICARB./CITRIC ACID/SIMETHICONE) As Ordered ONE; -E-Z-HD 98% w/w 340 GM SUSP BTL As Ordered ONE; -E-Z-PAQUE 96% w/w SUSP 176 GM BTL As Ordered ONE
== END ==
LOC: M RAD 09:07
PROVIDERS: ATTEND Allergy & Immunology Allergy
DX: J32.9 Chronic sinusitis, unspecified (principal)

== ENCOUNTER → 2025-06-04 | Outpatient (CLI) | payer MEDICARE, OTHER | LOC: M RAD 06:41 | PROVIDERS: ATTEND Internal Medicine | DX: M79.631 Pain in right forearm (principal) ==

== ENCOUNTER → 2025-06-06 | Outpatient (REF) | payer MEDICARE, OTHER ==
[2025-06-06 18:16] LABS: FREE T4 1.5 NG/DL (0.89-1.76)
== END ==
LOC: M SFHCLERA 11:34
PROVIDERS: ATTEND Student in an Organized Health Care Education/Training Program
DX: C73 Malignant neoplasm of thyroid gland (principal)